=== PATIENT | male | born 1935 ===

== ENCOUNTER 2016-09-13 18:25 | Inpatient (IN) ==
[2016-09-13] MEDS ORDERED: ALBUTEROL/IPRATROPIUM 3 ML NEB RESP TX STA ×2 (18:34→20:00)
[2016-09-13] MEDS ORDERED: ONDANSETRON 4 MG/2 ML VIAL IV STA (18:34)
[2016-09-13] MEDS ORDERED: SODIUM CHLORIDE 0.9% 1,000 ML IV STA (18:34)
[2016-09-13] MEDS ORDERED: methylPREDNISolone SOD SUC 125 MG/2 ML VIAL IV STA (18:34)
[2016-09-13] MEDS ORDERED: AZITHROMYCIN INJ 500 MG in SODIUM CHLORIDE 0.9% 250 ML IV STA (18:34)
[2016-09-13] MEDS ORDERED: cefTRIAXone 1,000 MG in SODIUM CHLORIDE 0.9% 100 ML IV STA (18:34)
--- NOTE | 2016-09-13 18:39 | Emergency Department Note ---
Arrival - Arrival Chief Complaint: Shortness of Breath ED Nursing Triage Note: pt was dx with pneumonia this am at [facility]. +cough and fever Mode of Arrival: Stretcher Limitations: No Limitations Source: Patient Time Seen by Provider: 09/13/16 18:34 - History of Present Illness HPI Narrative: This 81-year-old male presents with a history of 1 week of progressive cough productive discolored sputum associated with initially low- grade temperatures all of which escalated today with a temperature of 102 earlier today at [facility]. Since transfer he has had onset of rigors and increased shortness of breath. With this he denies chest pain, nausea, vomiting, or hemoptysis. As expected he does feel short of breath with persistence of his productive cough and diffuse body aches. Currently he appears in moderate distress. Onset (ago): week(s) (Patient presents 1 week post onset of symptom) Allergies/Adverse Reactions: Allergies Allergy/AdvReac Type Severity Reaction Status Date / Time No Known Allergies Allergy Unverified 09/13/16 18:30 Home Medications: Home Medications Medication Instructions Recorded Confirmed Type Acetaminophen Tab [Tylenol Tab] 500 mg PO Q6HR PRN 09/13/16 09/13/16 History Allopurinol 200 mg PO DAILY 09/13/16 09/13/16 History Colchicine 0.6 mg PO DAILY 09/13/16 09/13/16 History Furosemide Tab [Lasix Tab] 40 mg PO QAM 09/13/16 09/13/16 History Guaifenesin/Dextromethorphan 5 ml PO Q4H PRN 09/13/16 09/13/16 History [Guaifenesin Dm Syrup] Omeprazole 20 mg PO DAILY 09/13/16 09/13/16 History Potassium Chloride 10 meq PO DAILY 09/13/16 09/13/16 History Simvastatin 40 mg PO BEDTIME 09/13/16 09/13/16 History Tamsulosin [Flomax] 0.4 mg PO DAILY 09/13/16 09/13/16 History levoFLOXacin [Levofloxacin Tab] 750 mg PO DAILY 09/13/16 09/13/16 History predniSONE TAB [PredniSONE] 10 mg PO DAILY 09/13/16 09/13/16 History Review of System - Review of System 12 point system: reviewed and no additional remarkable complaints except as stated - Review of System Constitutional: Present: as per HPI Respiratory: Present: as per HPI Cardiovascular: Present: as per HPI Gastrointestinal: Present: as per HPI Musculoskeletal: Present: as per HPI Medical,Surgical,& Family Hx - Medical History Cardio: History of: Hypertension - Social History Smoking Status: Never smoker Frequency of Alcohol Use: None Type of Drug Use: None Exam Physical Examination: GENERAL: Well developed, well nourished elderly male and active rigors. HEENT: Normocephalic. No trauma. Moist mucous membranes. EOMI. PERRLA. ENT NML NECK: Supple. No adenopathy. CARDIAC: Regular. No murmurs. Heart rate 130 CHEST: Diffuse expiratory rhonchi. Mild respiratory distress. O2 sat 89% ABDOMEN: Soft. Nontender. Active bowel sounds. EXTREMITIES: No trauma. Normal ROM. No pedal edema. SKIN: No diaphoresis. No rash. NEURO: Alert. Neuro intact no focal deficits. Vital Signs: Vital Signs Temperature 101.0 F H 09/13/16 18:25 Pulse Rate 138 H 09/13/16 18:51 Respiratory Rate 23 09/13/16 18:51 Blood Pressure 141/81 09/13/16 18:25 O2 Sat by Pulse Oximetry 97 09/13/16 18:51 Course - Reevaluation(s) Reevaluation #1: Discussed with patient the need for hospitalization - Consultations Consultation #1: Discussed with the hospitalist service who will admit for further evaluation Results - Labs CBC & BMP: 09/13/16 18:52 09/13/16 18:52 Lab Results: I have reviewed the patients labs Labs: I reviewed the lab and noted the borderline elevation in white blood count as well as the positive troponin. - Impressions EKG: Sinus tachycardia at [address] interval and left bundle branch block. Also notable is left ventricular hypertrophy with significant strain pattern. No acute injury pattern was noted. - Diagnostic Findings Procedure: Chest x-ray: image reviewed by me, report reviewed by me (Bilateral infiltrates versus edema and hent of possible underlying neoplasm) Disposition Clinical Impression: Bilateral pneumonia, Congestive heart failure Case discussed with: patient Condition: Guarded Time of Disposition: 20:04
[2016-09-13] MEDS ORDERED: ONDANSETRON 4 MG/2 ML VIAL ONE (18:46)
[2016-09-13] MEDS ORDERED: methylPREDNISolone SOD SUC 125 MG/2 ML VIAL ONE (18:46)
[2016-09-13 19:01] LABS: Basophils % 0.1 % (0.0-0.8); Eosinophils # 0.1 10*3/uL (0.0-0.87); Eosinophils % 0.9 % (0.00-10.9); Hematocrit 37.2 VOL% (42.0-52.0); Hemoglobin 11.5 GM/DL (14.0-18.0); Immature Granulocytes % 0.6 %; Immature Granulocytes Absolute 0.07 #; Lymphocytes # 2.2 10*3/uL (1.4-4.0); Lymphocytes % 19.4 % (21.2-54.2); Mean Corpuscular HGB Conc 30.9 GM/DL (32-36); Mean Corpuscular Hemoglobin 30 PG (27-34); Mean Corpuscular Volume 96.1 FL (87-102); Monocytes # 0.3 10*3/uL (0.11-0.8); Monocytes % 2.3 % (1.7-12.7); Neutrophils # 8.8 10*3/uL (1.4-7.4); Neutrophils % 76.7 % (38.7-73.9); Platelet Count 164 T/CUMM (130-400); Red Blood Count 3.87 MC/CUMM (3.8-5.5); Red Cell Distribution Width 17.4 % (9.3-17.3); White Blood Count 11.5 T/CUMM (4-12)
[2016-09-13 19:15] LABS: INR 1.1; Partial Thromboplastin Time 30.5 SECS (0-40)
[2016-09-13 19:20] LABS: Alanine Aminotransferase 34 U/L (16-61); Albumin 3.1 G/DL (3.4-5.0); Alkaline Phosphatase 116 U/L (45-117); Aspartate Amino Transferase 34 U/L (0-37); Blood Urea Nitrogen 50 MG/DL (7-18); Calcium 8.2 MG/DL (8.5-10.1); Glucose 102 MG/DL (74-106); Osmolality,Calculated 298.8 MOS/KG (273-304); Potassium 4.5 MMOL/L (3.5-5.1); Sodium 144 MMOL/L (136-145); Total Protein 6.7 G/DL (6.4-8.3)
[2016-09-13] MEDS ORDERED: AZITHROMYCIN 500 MG VIAL IV ONE (19:28)
[2016-09-13] MEDS ORDERED: cefTRIAXone 1,000 MG VIAL ONE (19:28)
--- NOTE | 2016-09-13 19:45 | XRay Report ---
Chest, 2 views History short of breath Comparison 05/31/2014 The heart is enlarged. Patient is rotated There has been development of moderate bilateral reticular nodular and patchy pulmonary opacities with some mildly more confluent somewhat nodular opacities in the lateral lung bases bilaterally measuring up to 3 cm. Impression: Interval development of bilateral pulmonary opacities which could be any combination of infiltrate or edema. Follow-up until clear is necessary for some more confluent somewhat rounded areas to exclude more focal pneumonia or underlying neoplasm PROCEDURE INTERPRETED AT [facility] DEPARTMENT OF RADIOLOGY Final Report Signed by: Dr. Carmen Olivo
[2016-09-13] MEDS ORDERED: FUROSEMIDE 40 MG/4 ML VIAL IV STA (20:00)
[2016-09-13] MEDS ORDERED: ACETAMINOPHEN 325 MG TABLET PO PRN (20:04)
[2016-09-13] MEDS ORDERED: ZALEPLON 5 MG CAPSULE PO PRN (20:04)
[2016-09-13] MEDS ORDERED: ONDANSETRON 4 MG/2 ML VIAL IV PRN (20:04)
[2016-09-13] MEDS ORDERED: ENOXAPARIN 40 MG/0.4 ML SYRINGE SUBCUT SCH (20:30)
[2016-09-13] MEDS ORDERED: EPINEPHrine 1 MG/ML VIAL ONE ×2 (20:31→20:48)
[2016-09-13] MEDS ORDERED: EPINEPHrine 1 MG/10 ML SYRINGE ONE ×2 (20:31→20:47)
[2016-09-13] MEDS ORDERED: ATROPINE 1 MG/10 ML SYRINGE ONE (20:31)
[2016-09-13] MEDS ORDERED: SODIUM BICARBONATE 50 MEQ/50 ML SYRINGE IV ONE (20:31)
[2016-09-13] MEDS ORDERED: CALCIUM CHLORIDE 1,000 MG/10 ML SYRINGE IV ONE (20:31)
--- NOTE | 2016-09-13 21:07 | XRay Report ---
History is intubation Single portable film taken markedly limited by overlying artifacts. ET tube has been placed with tip at T4-T5. The remainder of the exam is grossly unchanged with continued diffuse bilateral pulmonary opacities PROCEDURE INTERPRETED AT [facility] DEPARTMENT OF RADIOLOGY Final Report Signed by: Dr. Carmen Olivo
--- NOTE | 2016-09-13 21:37 | Hospitalist History & Physical ---
Assessment and Plan (1) Pneumonia Status: Acute Current Visit: Yes (2) History of cardiomyopathy Status: Acute Current Visit: Yes (3) Increase in troponins Status: Acute Assessment and plan: Our plan for this patient will be admitting him to ICU. Patient has a pneumonia will consult pulmonary for their evaluation of the pneumonia, possible lung mass and ventilator management. I am putting the patient on Zosyn at this time. I do feel that the code was predicated by him pulling his nonrebreather off. Patient is currently stabilized in the ER and being transferred to the unit. Ordered ABG and will adjust the ventilator as needed. Patient did have a bump in his troponins. Will consult cardiology for their evaluation. Of note will be elevated status post code. He was coded for over 15 minutes with chest compressions. Patient's family was informed that the patient is critical and might not survive the hospitalization. Current Visit: Yes History of Present Illness Chief complaint: Status post code History of present illness: Mr. Gale is a 81 year old male with past medical history significant for hypertension, cardiomyopathy, arthritis, anemia and gout who presents to our hospital not feeling well for the past week. History was obtained from his daughter. She reports that this morning he seemed disoriented they take him to [facility]. Patient was found to have fever cough and pneumonia. He was sent home. Patient reportedly was doing okay. Around 4:00 he said he could not catch his breath. Patient was very pale. He can set up. EMS was called and brought him to our hospital for further evaluation. Per the ER physician patient has been running a temperature of 102 today at [facility]. He had had onset of rigors and increased shortness of breath. He denied chest pain nausea vomiting or hemoptysis to the ER physician but did report that he was feeling short of breath. Apparently patient was requiring a nonrebreather to keep his O2 saturations up. He was found with his oxygen pulled off and secretions around his lips with possible aspiration. There was no pulse ACLS was begun immediately in the emergency room. Patient did receive multiple medications during the code. And blood pressure and pulse were restored. Patient will be kept on a epi drip for now. Patient has stabilized for now. I informed his family what it occurred in the possibility that he might not survive this hospitalization. Home Medications Medication Instructions Recorded Confirmed Type Acetaminophen Tab [Tylenol Tab] 500 mg PO Q6HR PRN 09/13/16 09/13/16 History Allopurinol 200 mg PO DAILY 09/13/16 09/13/16 History Colchicine 0.6 mg PO DAILY 09/13/16 09/13/16 History Furosemide Tab [Lasix Tab] 40 mg PO QAM 09/13/16 09/13/16 History Guaifenesin/Dextromethorphan 5 ml PO Q4H PRN 09/13/16 09/13/16 History [Guaifenesin Dm Syrup] Omeprazole 20 mg PO DAILY 09/13/16 09/13/16 History Potassium Chloride 10 meq PO DAILY 09/13/16 09/13/16 History Simvastatin 40 mg PO BEDTIME 09/13/16 09/13/16 History Tamsulosin [Flomax] 0.4 mg PO DAILY 09/13/16 09/13/16 History levoFLOXacin [Levofloxacin Tab] 750 mg PO DAILY 09/13/16 09/13/16 History predniSONE TAB [PredniSONE] 10 mg PO DAILY 09/13/16 09/13/16 History Allergies Allergy/AdvReac Type Severity Reaction Status Date / Time No Known Allergies Allergy Unverified 09/13/16 18:30 Medical,Surgical,& Family Hx - Medical History Cardio: History of: CHF, CAD, Hypertension - Surgical History Additional Surgical History: none - Family History Family History: Reports;: Family Cancer, Family Diabetes, Family Heart Disease, Family Hematology, Family Hypertension, Family Stroke - Social History Smoking Status: Never smoker Frequency of Alcohol Use: None Type of Drug Use: None Exam - Constitutional Vitals: Period Temp Pulse Resp BP Sys/Call Pulse Ox Last 24 Hr 101.0 F-101.0 F 136-145 15-35 141-141/81-81 89-97 Results - Labs CBC & BMP: 09/13/16 18:52 09/13/16 18:52
[2016-09-13 21:40] LABS: ABG Base Excess -7.4 MMOL/L (-2.5-2.5); ABG HCO3 18.8 MMOL/L (20-26); ABG Oxygen Saturation 98.6 % (95-100); ABG PCO2 40.8 MM HG (35-48); ABG PH 7.281 (7.35-7.45); ABG PO2 244.5 MM HG (80-95); Allen Test Positive; Pt O2 Delivery Device Ventilator
[2016-09-13] MEDS ORDERED: SIMVASTATIN 40 MG TABLET PO SCH (22:29)
[2016-09-13] MEDS: SODIUM CHLORIDE 0.45% 1,000 ML IV SCH (22:51)
[2016-09-13] MEDS ORDERED: ENOXAPARIN 60 MG/0.6 ML SYRINGE SUBCUT SCH (23:00)
[2016-09-13] MEDS: PROPOFOL 1,000 MG/100 ML BOTTLE IV SCH (23:55)
[2016-09-13] MEDS: PIPERACILLIN/TAZOBACTAM 3,375 MG in SODIUM CHLORIDE 0.9% 100 ML IV SCH (23:56)
[2016-09-14] MEDS: PANTOPRAZOLE 40 MG VIAL IV SCH ×2 (00:05→21:39)
[2016-09-14] MEDS: PHENYLEPHRINE DRIP 40 MG/250 ML PREMIX IV SCH ×2 (00:06→10:59)
[2016-09-14] MEDS: methylPREDNISolone SOD SUC 125 MG/2 ML VIAL IV SCH ×3 (01:38→19:09)
[2016-09-14] MEDS: PROPOFOL 1,000 MG/100 ML BOTTLE IV SCH ×3 (01:38→23:50)
[2016-09-14 02:06] LABS: CKMB % 2.5 %
[2016-09-14 02:08] LABS: Troponin I Only 15.2 NG/ML (0.00-0.045)
--- NOTE | 2016-09-14 02:28 | Event Note ---
Patient had a long code was approximately 15 minutes. Currently he is not responsive. His troponin did increase. It was a significant increase with troponin going to 15.2 CK-MB going to 73.9 with creatinine kinase going to 2921. I have him on a 1 gaurav per kg Lovenox dose. Will repeat his EKG now. At this time will not consult cardiology until 7 AM. Old cath report was reviewed. In the past they have treated him only with medical therapy.
[2016-09-14 03:45] LABS: ABG Base Excess -4.3 MMOL/L (-2.5-2.5); ABG HCO3 20.9 MMOL/L (20-26); ABG Oxygen Saturation 98.5 % (95-100); ABG PCO2 27.7 MM HG (35-48); ABG PH 7.439 (7.35-7.45); Allen Test Positive; Pt O2 Delivery Device Ventilator
[2016-09-14 05:11] LABS: Basophils % 0.1 % (0.0-0.8); Hematocrit 31.5 VOL% (42.0-52.0); Immature Granulocytes % 0.4 %; Immature Granulocytes Absolute 0.04 #; Lymphocytes # 0.2 10*3/uL (1.4-4.0); Lymphocytes % 1.7 % (21.2-54.2); Mean Corpuscular HGB Conc 31.7 GM/DL (32-36); Mean Corpuscular Hemoglobin 29 PG (27-34); Mean Corpuscular Volume 92.6 FL (87-102); Mean Platelet Volume 11.4 FL (9.6-12.0); Monocytes # 0.2 10*3/uL (0.11-0.8); Neutrophils # 8.7 10*3/uL (1.4-7.4); Neutrophils % 95.8 % (38.7-73.9); Platelet Count 111 T/CUMM (130-400); Red Cell Distribution Width 17.7 % (9.3-17.3); White Blood Count 9.1 T/CUMM (4-12)
[2016-09-14 05:41] LABS: Band Neutrophils 13 % (0-10); Elliptocytes Few; Hypochromasia 1+; Platelet Estimate Decreased; Segmented Neutrophils 84 % (50-85); Total Cells Counted 100
[2016-09-14 05:50] LABS: Calcium 7.9 MG/DL (8.5-10.1); Osmolality,Calculated 316.1 MOS/KG (273-304); Potassium 4.4 MMOL/L (3.5-5.1)
--- NOTE | 2016-09-14 06:28 | EKG Report ---
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
--- NOTE | 2016-09-14 06:32 | EKG Report ---
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
[2016-09-14] MEDS: PIPERACILLIN/TAZOBACTAM 3,375 MG in SODIUM CHLORIDE 0.9% 100 ML IV SCH ×2 (07:13→16:54)
--- NOTE | 2016-09-14 07:32 | XRay Report ---
XR chest 1V portable Indication: Intubated patient Comparison: Chest x-ray dated September 13, 2016 Technique: Single frontal view of the chest. Findings: Tip of endotracheal tube 1-2 cm above the albina. Continued cardiomegaly. Interval increased dense consolidation within the right lung base. Continued bilateral interstitial prominence with scattered small opacities. Visualized osseous and surrounding soft tissue structures appear grossly unchanged. IMPRESSION: As above. PROCEDURE INTERPRETED AT [facility] DEPARTMENT OF RADIOLOGY Final Report Signed by: Dr Keyon Navarro
--- NOTE | 2016-09-14 08:17 | Pulmonology Consult Note ---
Assessment and Plan (1) Respiratory failure Status: Acute Assessment and plan: ABGs look good. Will reduce FiO2 and assist control rate a little. Current Visit: Yes (2) Cardiopulmonary arrest Status: Acute Assessment and plan: Remains to be seen what his mental status will be like. Continuing support. History of cardiomyopathy and cardiac enzymes apparently myocardial infarction. Current Visit: Yes (3) Pneumonia Status: Acute Assessment and plan: Agree with broad-spectrum antibiotics. Current Visit: Yes (4) History of cardiomyopathy Status: Acute Assessment and plan: Need an echo to see current LV function. Current Visit: Yes (5) Increase in troponins Status: Acute Assessment and plan: Suggests a myocardial infarction. Patient did have a cardiac arrest with CPR. Current Visit: Yes History of Present Illness Chief complaint: Post cardiopulmonary arrest History of present illness: Mr. Gale is a 81 year old male apparently had been ill for about a week. He was taken to the [facility] yesterday morning and was found to have fever of 102 and felt to have pneumonia. He was transferred here. He subsequently had a cardiopulmonary arrest and is on the ventilator. He has a history of coronary artery disease with a cardiomyopathy. I do not have the details of that. Apparently he has a history of gout as well looking at his home medications. Also hyperlipidemia. Also benign prostatic hypertrophy. He was on Levaquin and prednisone prior to admission. He reportedly has never been a smoker. No known history of chronic lung disease. After the cardiac arrest his CPKmb and troponins have markedly elevated. Home Medications Medication Instructions Recorded Confirmed Type Acetaminophen Tab [Tylenol Tab] 500 mg PO Q6HR PRN 09/13/16 09/13/16 History Allopurinol 200 mg PO DAILY 09/13/16 09/13/16 History Colchicine 0.6 mg PO DAILY 09/13/16 09/13/16 History Furosemide Tab [Lasix Tab] 40 mg PO QAM 09/13/16 09/13/16 History Guaifenesin/Dextromethorphan 5 ml PO Q4H PRN 09/13/16 09/13/16 History [Guaifenesin Dm Syrup] Omeprazole 20 mg PO DAILY 09/13/16 09/13/16 History Potassium Chloride 10 meq PO DAILY 09/13/16 09/13/16 History Simvastatin 40 mg PO BEDTIME 09/13/16 09/13/16 History Tamsulosin [Flomax] 0.4 mg PO DAILY 09/13/16 09/13/16 History levoFLOXacin [Levofloxacin Tab] 750 mg PO DAILY 09/13/16 09/13/16 History predniSONE TAB [PredniSONE] 10 mg PO DAILY 09/13/16 09/13/16 History Allergies Allergy/AdvReac Type Severity Reaction Status Date / Time No Known Allergies Allergy Unverified 09/13/16 18:30 ROS unobtainable: due to endotracheal tube, due to mental status Exam (Pulmonay) H&P - Constitutional Vitals: Period Temp Pulse Resp BP Sys/Call Pulse Ox Last 24 Hr 97.0 F-101.0 F 92-145 14-35 97-141/48-81 89-100 Exam: Blood pressure is 120/50 on pressors. He is afebrile. Pupils are small and sluggish. Orotracheal tube in place. Neck supple. Chest reveals some rales in both bases. Equal breath sounds. Heart rate is around 100 and regular. No murmurs. Abdomen soft no masses. Bowel sounds present. Extremities no clubbing cyanosis or edema. Medical,Surgical,& Family Hx - Medical History Cardio: History of: CHF, CAD, Hypertension HEENT: History of: Dental Problems (dentures) Rheumatology: History of;: Gout, Rheumatoid Arthritis Musculoskeletal: No history of: Amputation Hematology: History of: Anemia - Surgical History Cardiac Surgeries: Sugical HX of: Cardiac Catheterization - Family History Family History: Reports;: Family Cancer, Family Diabetes, Family Heart Disease, Family Hematology, Family Hypertension, Family Stroke - Social History Smoking Status: Never smoker Frequency of Alcohol Use: None Type of Drug Use: None Results - Labs CBC & BMP: 09/14/16 04:51 09/14/16 04:51 Lab Results: I have reviewed the past 24 hour labs - Diagnostic Findings Procedure: Chest x-ray: image reviewed by me (Pulmonary infiltrates bilaterally. ET tube in good position.)
--- NOTE | 2016-09-14 08:30 | Cardiology Consult Note ---
Assessment and Plan - Time spent with patient Time spent with patient: Greater than 30 minutes History of Present Illness - Data of Consult Patient: known to practice within the last 3 years Consult date: 09/14/16 Requesting Physician: Eusebio Telles - Consult Narrative Reason for consult: cardiopulmonary arrest, elevated troponin History of present illness: MEDICAL SUPPORT ASSISTANT: DR. KHALIF QUICK (Late entry). Patient is being seen in the ICU. There is no family at the bedside, the patient is intubated. The majority of this information is taken from medical staff and medical records. Mr. Gale, 81ChM, has previously been followed by Dr. Quick. He was last seen in cardiology clinic September 24, 2014. Risk factors include: Advanced age, known (moderate) coronary artery disease, hypertension, dyslipidemia, PVD, sedentary lifestyle. Last cardiac catheterization June 25, 2014 - see below for complete report. Patient presented to [facility] Emergency Department the evening of September 13, 2016. He was found to have a fever, cough and pneumonia. He had recently been treated at [facility] for pneumonia (fever 102F ). His condition deteriorated at home and he was brought to our facility. He was requiring a nonrebreather to keep his oxygen saturation up. He continued to pull his mask off with secretions around his lips and possible aspiration noted. A code was called, there was no pulse, ACLS was begun immediately while in the emergency department. He was coded with chest compressions for over 15 minutes. He received multiple medications during the code and blood pressure and pulse were restored. He was transferred to CCU where he remains intubated. Sedation has been withheld this morning intermittently and minimal neurological response is noted. It is felt that his respiratory arrest was due to hypoxemia and pneumonia. He is currently being treated for both. Troponin initially 1.19, after CPR has now increased to 36.4. He is being treated with aspirin, Lovenox. Blood pressure will not allow for introduction of a beta- yamel or an CEDRIC inhibitor as he is requiring pressors at this time. Lipid- lowering agent will be initiated this evening. His platelet count has decreased to 111 and will continue to monitor this closely. Patient is critically ill. Echocardiogram has been ordered. CT head also ordered. Should the patient condition and multiple comorbidities improve, he will need cardiac catheterization. I will further discuss with Dr. Sargent and await his recommendations. ASSESSMENT/PLAN: 1. CARDIOPULMONARY ARREST - critically ill. Continue ventilatory support, support with pressors. 2. CAD, MODERATE - history of moderate CAD. See report below regarding most recent results of heart catheterization 3. ELEVATED CARDIAC BIOMARKERS S/P CODE - continue current plan of care. Due to the patient's multiple comorbidities, medical management will ensue until he stabilizes. At that time, he will need further imaging investigation including cardiac catheterization. 4. PNEUMONIA - currently being treated with steroids, antibiotics and pulmonary toilet. 5. THROMBOCYTOPENIA - we will continue to follow his platelets closely. 6. ALTERED MENTAL STATUS - possibly anoxic brain injury. Awaiting CT of head. Heart catheterization, performed by Dr. Khalif Quick, June 25, 2014: 1. Moderate CAD A. Right coronary artery with sequential 60%, 70% and 50% lesions 2. Right dominant coronary arteries 3. Ejection fraction 40% to 45%, although this was difficult to assess due to poor visualization of the left ventricle. 4. Mild to moderate aortic stenosis with a peak gradient of 35 mmHg, mean gradient of 16 mmHg. 5. Tortuous and calcified right iliac artery with mild to moderate atherosclerotic vascular disease no evidence of vascular complication. CC: Eve Villatoro MD - Home Medications and Allergies Home Medications: Home Medications Medication Instructions Recorded Confirmed Type Acetaminophen Tab [Tylenol Tab] 500 mg PO Q6HR PRN 09/13/16 09/13/16 History Allopurinol 200 mg PO DAILY 09/13/16 09/13/16 History Colchicine 0.6 mg PO DAILY 09/13/16 09/13/16 History Furosemide Tab [Lasix Tab] 40 mg PO QAM 09/13/16 09/13/16 History Guaifenesin/Dextromethorphan 5 ml PO Q4H PRN 09/13/16 09/13/16 History [Guaifenesin Dm Syrup] Omeprazole 20 mg PO DAILY 09/13/16 09/13/16 History Potassium Chloride 10 meq PO DAILY 09/13/16 09/13/16 History Simvastatin 40 mg PO BEDTIME 09/13/16 09/13/16 History Tamsulosin [Flomax] 0.4 mg PO DAILY 09/13/16 09/13/16 History levoFLOXacin [Levofloxacin Tab] 750 mg PO DAILY 09/13/16 09/13/16 History predniSONE TAB [PredniSONE] 10 mg PO DAILY 09/13/16 09/13/16 History Allergies/Adverse Reactions: Allergies Allergy/AdvReac Type Severity Reaction Status Date / Time No Known Allergies Allergy Unverified 09/13/16 18:30 ROS unobtainable: due to endotracheal tube Medical,Surgical,& Family Hx - Medical History Cardio: History of: CHF, CAD, Hypertension HEENT: History of: Dental Problems (dentures) Rheumatology: History of;: Gout, Rheumatoid Arthritis Musculoskeletal: No history of: Amputation Hematology: History of: Anemia - Surgical History Cardiac Surgeries: Sugical HX of: Cardiac Catheterization - Family History Family History: Reports;: Family Cancer, Family Diabetes, Family Heart Disease, Family Hematology, Family Hypertension, Family Stroke - Social History Smoking Status: Never smoker Frequency of Alcohol Use: None Type of Drug Use: None Physical Examination Vital Signs Temp Pulse Resp BP Pulse Ox 101.0 F H 136 H 28 H 141/81 89 L 09/13/16 18:25 09/13/16 18:25 09/13/16 18:25 09/13/16 18:25 09/13/16 18:25 General: [Appears critically ill. ] [Remains intubated. ] [Appears comfortable. ] HEENT: [Normocephalic, atraumatic. Mucous membranes moist. No jaundice noted. Conjunctiva moist and clear, sclerae anicteric] Neck: No obvious JVD/HJR, no thyromegaly or lymphadenopathy noted. No carotid bruit appreciated Cardiac: [Regular rate and rhythm.] [No obvious murmur rub or gallop.] Lungs: [Rhonchi noted throughout. Symmetrical chest wall movements noted. Remains intubated. Abdomen: Soft, bowel sounds normoactive. Nontender and nondistended. No abdominal bruit or thrill noted. No masses noted. Musculoskeletal: No fluid collection. Decreased range of motion is noted. Extremities: No clubbing, cyanosis noted. [ No edema noted.] Upper extremity pulses 2+. Lower extremity pulses 1+. Capillary refill less than 3 seconds. Skin: No unusual lesions or rashes. No skin breakdown appreciated. Neuro: Not following commands at this time. No essential tremors appreciated. Result/EKG - Labs CBC & BMP: 09/14/16 04:51 09/14/16 04:51 Lab Results: I have reviewed the past 24 hour labs Labs: Laboratory Results - last 24 hr 09/13/16 09/13/16 09/13/16 18:52 18:52 18:52 WBC 11.5 RBC 3.87 Hgb 11.5 L Hct 37.2 L MCV 96.1 MCH 30 MCHC 30.9 L RDW 17.4 H Plt Count 164 MPV 10.0 Neut % (Auto) 76.7 H Lymph % (Auto) 19.4 L Owen % (Auto) 2.3 Eos % (Auto) 0.9 Baso % (Auto) 0.1 Neut # (Auto) 8.8 H Lymph # (Auto) 2.2 Owen # (Auto) 0.3 Eos # (Auto) 0.1 Baso # (Auto) 0.0 Total Counted Immature Gran % 0.6 Nucleated RBC % 0.0 Immature Gran # 0.07 Segmented Neutrophils Band Neutrophils Monocytes Nucleated RBCs # 0.00 Platelet Estimate Hypochromasia Elliptocytes Morphology Comment INR 1.1 PT Patient/Control Mix 12.0 Circ Anticoag PTT 30.5 ABG pH ABG pCO2 ABG pO2 ABG HCO3 ABG Total CO2 ABG O2 Saturation ABG Base Excess FiO2 Sodium 144 Potassium 4.5 Chloride 107 Carbon Dioxide 24 Anion Gap 17.5 H BUN 50 H Creatinine 1.80 H GFR Calculation 32 BUN/Creatinine Ratio 27.00 H Glucose 102 Calculated Osmolality 298.8 Calcium 8.2 L Total Bilirubin 0.70 AST 34 ALT 34 Alkaline Phosphatase 116 Total Creatine Kinase 117 CK-MB (CK-2) 4.0 H CK and CKMB Interp Troponin I 1.190 H B-Natriuretic Peptide Total Protein 6.7 Albumin 3.1 L Globulin 3.6 H Albumin/Globulin Ratio 0.8 L 09/13/16 09/13/16 09/14/16 18:52 21:21 01:02 WBC RBC Hgb Hct MCV MCH MCHC RDW Plt Count MPV Neut % (Auto) Lymph % (Auto) Owen % (Auto) Eos % (Auto) Baso % (Auto) Neut # (Auto) Lymph # (Auto) Owen # (Auto) Eos # (Auto) Baso # (Auto) Total Counted Immature Gran % Nucleated RBC % Immature Gran # Segmented Neutrophils Band Neutrophils Monocytes Nucleated RBCs # Platelet Estimate Hypochromasia Elliptocytes Morphology Comment INR PT Patient/Control Mix Circ Anticoag PTT ABG pH 7.281 L ABG pCO2 40.8 ABG pO2 244.5 H ABG HCO3 18.8 L ABG Total CO2 20.0 L ABG O2 Saturation 98.6 ABG Base Excess -7.4 L FiO2 100.00 Sodium Potassium Chloride Carbon Dioxide Anion Gap BUN Creatinine GFR Calculation BUN/Creatinine Ratio Glucose Calculated Osmolality Calcium Total Bilirubin AST ALT Alkaline Phosphatase Total Creatine Kinase 2921 H D CK-MB (CK-2) 73.9 H D CK and CKMB Interp 2.5 Troponin I 15.200 H D B-Natriuretic Peptide 992 H Total Protein Albumin Globulin Albumin/Globulin Ratio 09/14/16 09/14/16 09/14/16 03:30 04:51 04:51 WBC 9.1 RBC 3.40 L Hgb 10.0 L Hct 31.5 L MCV 92.6 MCH 29 MCHC 31.7 L RDW 17.7 H Plt Count 111 L D MPV 11.4 Neut % (Auto) 95.8 H Lymph % (Auto) 1.7 L Owen % (Auto) 2.0 Eos % (Auto) 0.0 Baso % (Auto) 0.1 Neut # (Auto) 8.7 H Lymph # (Auto) 0.2 L Owen # (Auto) 0.2 Eos # (Auto) 0.0 Baso # (Auto) 0.0 Total Counted 100 Immature Gran % 0.4 Nucleated RBC % 0.0 Immature Gran # 0.04 Segmented Neutrophils 84 Band Neutrophils 13 H Monocytes 3 Nucleated RBCs # 0.00 Platelet Estimate Decreased Hypochromasia 1+ Elliptocytes Few Morphology Comment INR PT Patient/Control Mix Circ Anticoag PTT ABG pH 7.439 ABG pCO2 27.7 L ABG pO2 123.0 H ABG HCO3 20.9 ABG Total CO2 17.0 L ABG O2 Saturation 98.5 ABG Base Excess -4.3 L FiO2 50.00 Sodium Potassium Chloride Carbon Dioxide Anion Gap BUN Creatinine GFR Calculation BUN/Creatinine Ratio Glucose Calculated Osmolality Calcium Total Bilirubin AST ALT Alkaline Phosphatase Total Creatine Kinase > 7000 H D CK-MB (CK-2) 116.4 H D CK and CKMB Interp 0.0 Troponin I 36.400 H D B-Natriuretic Peptide Total Protein Albumin Globulin Albumin/Globulin Ratio 09/14/16 04:51 WBC RBC Hgb Hct MCV MCH MCHC RDW Plt Count MPV Neut % (Auto) Lymph % (Auto) Owen % (Auto) Eos % (Auto) Baso % (Auto) Neut # (Auto) Lymph # (Auto) Owen # (Auto) Eos # (Auto) Baso # (Auto) Total Counted Immature Gran % Nucleated RBC % Immature Gran # Segmented Neutrophils Band Neutrophils Monocytes Nucleated RBCs # Platelet Estimate Hypochromasia Elliptocytes Morphology Comment INR PT Patient/Control Mix Circ Anticoag PTT ABG pH ABG pCO2 ABG pO2 ABG HCO3 ABG Total CO2 ABG O2 Saturation ABG Base Excess FiO2 Sodium 149 H Potassium 4.4 Chloride 113 H Carbon Dioxide 19 L Anion Gap 21.4 H BUN 59 H Creatinine 2.40 H GFR Calculation 22 BUN/Creatinine Ratio 24.00 H Glucose 169 H Calculated Osmolality 316.1 H Calcium 7.9 L Total Bilirubin AST ALT Alkaline Phosphatase Total Creatine Kinase CK-MB (CK-2) CK and CKMB Interp Troponin I B-Natriuretic Peptide Total Protein Albumin Globulin Albumin/Globulin Ratio - Diagnostic Findings Procedure: Chest x-ray: report reviewed by me - EKG EKG results: interpreted by me EKG shows: sinus rhythm
[2016-09-14] MEDS ORDERED: FUROSEMIDE 40 MG TABLET PO SCH (09:00)
[2016-09-14] MEDS ORDERED: ENOXAPARIN 60 MG/0.6 ML SYRINGE SUBCUT SCH (09:00)
[2016-09-14] MEDS ORDERED: predniSONE 10 MG TABLET PO SCH (09:00)
[2016-09-14] MEDS ORDERED: POTASSIUM CHLORIDE 10 MEQ TABLET PO SCH (09:00)
[2016-09-14] MEDS ORDERED: COLCHICINE 0.6 MG TABLET PO SCH (09:00)
[2016-09-14] MEDS ORDERED: TAMSULOSIN 0.4 MG CAPSULE PO SCH (09:00)
[2016-09-14] MEDS: ALLOPURINOL 100 MG TABLET PO SCH (09:16)
[2016-09-14] MEDS: SODIUM CHLORIDE 0.45% 1,000 ML IV SCH (12:34)
--- NOTE | 2016-09-14 13:37 | Hospitalist Progress Note ---
Hospitalist: Subjective Interval history: Pt intubated and sedated on vent but once sedation held x 30 minutes, nurse reports minimal response. No fever. BP low in 90's systolically but over the last 3 hours has had decreased UOP. Neonephrine restarted. Pt was also bradycardic Exam - Constitutional Vitals: Period Temp Pulse Resp BP Sys/Call Pulse Ox Last 24 Hr 97.0 F-101.0 F 54-145 12-42 75-166/39-81 89-100 Exam: GEN: Intubated and sedated, ill appearing HEENT: Pupils sluggish but reactive, clear sclera, ETT in place NECK: trachea midline, No LAD or thyromegaly appreciated CV: RRR no M diminished heart tones LUNGS: diminished lung sounds, clear, nonlabored but does breath over the vent ABD: soft, hypoactive, distended, no HSM or masses appreciated though difficult to assess given body habitus EXT: Warm no C/C/E Neuro: does not moves extremities to tactile stimulation Results - Labs CBC & BMP: 09/14/16 04:51 09/14/16 04:51 - Impressions (1) Acute hypoxic respiratory failure likely due aspiration pneumonia Status: Acute Assessment and plan: - Vent management per pulmonology - Cont IV antibiotics, bronchodilators, pulm toileting - F/U blood culture. Sputum culture. - Serial labs Current Visit: Yes (2) S/P Cardiopulmonary arrest with shock possibly cardiogenic vs. obstructive vs. septic Status: Acute Assessment and plan: - Requiring neosynephrine - Continuing support. History of cardiomyopathy and cardiac enzymes suggest myocardial infarction. - F/U ECHO Current Visit: Yes (3) History of cardiomyopathy with suspected NSTEMI Status: Acute Assessment and plan: F/U echo to see current LV function. Current Visit: Yes (5) Acute renal failure suspect due to ATN due to poor perfusion/ hypotension with metabolic acidosis Status: Acute Assessment and plan: - will stop statin as CPK is high and do not want to statin to lead to rhabdomyolysis. Will hold Flomax. Check urine Na, Cr, eosinophils and myoglobin. Check renal U/S and consult renal. - Check lactic acid - Hold colchicine - Avoid nephrotoxic agents - Vasoactive agents to improve cardiac output with goal MAP >/= 65 Current Visit: Yes (6) Bradycardia - improved with epi drip. Cards to see. currently in 60's (7) Anemia/ Thrombocytopenia - Check DIC panel, HIT Antibody, LDH and haptoglobin. Serial labs. May need to hold Lovenox... (8) Acute encephalopathy possibly due to hypotension, hypoxia and infection - consult neurology. Check CT head. ? EEG DVT prophylaxis- Lovenox SQ/ SCDs GI prophylaxis- Protonix IV 55 minutes spent with this patient. D/W nurse. I have attempted to call Nuzhat at [phone] (busy signal) and daughter Alycia [phone] (disconnected ). Will try to get another number to update. Overall prognosis is guarded.
[2016-09-14 14:42] LABS: INR 1.4; PT Patient Result 15.6 SECS
[2016-09-14 14:51] LABS: D-Dimer >= 35.2 MG/L FEU; Fibrinogen Quant Value 447 MG% (200-400)
[2016-09-14 14:57] LABS: Partial Thromboplastin Time 47.3 SECS (0-40)
--- NOTE | 2016-09-14 15:00 | Ultrasound Report ---
Referring Physician: Eve Villatoro MD Exam: US renal Bilateral Date: September 14, 2016 Reason: Elevated creatinine Comparison: None Technique: Grayscale and color flow ultrasound images of both kidneys were obtained. Ultrasound images were captured and stored. Findings: The right kidney measures 8.3 x 4.9 x 4.4 cm, and the left kidney measures 8.4 x 4.2 x 4.0 cm. No hydronephrosis is present. There is increased echogenicity of renal parenchyma bilaterally, which can be seen in chronic medical renal disease. The left kidney also has a lobular contour. This could be related to cortical scarring or congenital variation. There are 2 simple cysts at the upper pole of the left kidney: One measuring 1.2 x 1.0 x 1.0 cm and the other measuring 0.7 x 0.7 x 0.6 cm. No suspicious renal lesion is identified. Impression: 1. There is increased echogenicity of the renal parenchyma bilaterally. This can be seen in chronic medical renal disease. 2. Small left renal cysts. 3. The left kidney has a slightly lobular contour. This could be related to cortical scarring or congenital variation. PROCEDURE INTERPRETED AT [facility] DEPARTMENT OF RADIOLOGY Final Report Signed by: Dr. Natasha Garcia
[2016-09-14 15:28] LABS: Free T4 (Free Thyroxine) 0.97 NG/DL (0.76-1.46); Thyroid Stimulating Hormone 3.28 uIU/ml (0.358-3.74)
[2016-09-14 15:34] LABS: CKMB % 1.2 %
[2016-09-14 15:38] LABS: Troponin I Only 71.9 NG/ML (0.00-0.045)
[2016-09-14 16:16] LABS: Albumin 2.4 G/DL (3.4-5.0); Bilirubin,Direct 0.4 MG/DL (0.0-0.20); Bilirubin,Indirect 0.3 MG/DL (0.0-1.0); Bilirubin,Total 0.7 MG/DL (0.2-1.0); Total Protein 5.2 G/DL (6.4-8.3)
--- NOTE | 2016-09-14 16:25 | Neurology Consult Note ---
History of Present Illness History of present illness: Patient is unable to provide any history. History basically obtained from the chart. Mr. Gale is a 81 year old male with past medical history significant for hypertension, cardiomyopathy, arthritis, anemia and gout who presents to our hospital not feeling well for the past week. Family reports that yesterday morning he seemed disoriented they take him to [facility]. Patient was found to have fever cough and pneumonia. He was sent home. Patient reportedly was doing okay. Around 4:00 he said he could not catch his breath. Patient was very pale. EMS was called and brought him to [facility] for further evaluation. Per the ER physician patient has been running a temperature of 102 yesterday at [facility]. He had had onset of rigors and increased shortness of breath. There was no chest pain nausea vomiting or hemoptysis to the ER physician but did report that he was feeling short of breath. Apparently patient was requiring a nonrebreather to keep his O2 saturations up. He was found with his oxygen pulled off and secretions around his lips with possible aspiration. There was no pulse ACLS was begun immediately in the emergency room. Patient did receive multiple medications during the code. And blood pressure and pulse were restored. Patient has stabilized for now. Home Medications Medication Instructions Recorded Confirmed Type Acetaminophen Tab [Tylenol Tab] 500 mg PO Q6HR PRN 09/13/16 09/13/16 History Allopurinol 200 mg PO DAILY 09/13/16 09/13/16 History Colchicine 0.6 mg PO DAILY 09/13/16 09/13/16 History Furosemide Tab [Lasix Tab] 40 mg PO QAM 09/13/16 09/13/16 History Guaifenesin/Dextromethorphan 5 ml PO Q4H PRN 09/13/16 09/13/16 History [Guaifenesin Dm Syrup] Omeprazole 20 mg PO DAILY 09/13/16 09/13/16 History Potassium Chloride 10 meq PO DAILY 09/13/16 09/13/16 History Simvastatin 40 mg PO BEDTIME 09/13/16 09/13/16 History Tamsulosin [Flomax] 0.4 mg PO DAILY 09/13/16 09/13/16 History levoFLOXacin [Levofloxacin Tab] 750 mg PO DAILY 09/13/16 09/13/16 History predniSONE TAB [PredniSONE] 10 mg PO DAILY 09/13/16 09/13/16 History Allergies Allergy/AdvReac Type Severity Reaction Status Date / Time No Known Allergies Allergy Unverified 09/13/16 18:30 ROS unobtainable: due to endotracheal tube, due to mental status Medical,Surgical,& Family Hx - Medical History Cardio: History of: CHF, CAD, Hypertension HEENT: History of: Dental Problems (dentures) Rheumatology: History of;: Gout, Rheumatoid Arthritis Musculoskeletal: No history of: Amputation Hematology: History of: Anemia - Surgical History Cardiac Surgeries: Sugical HX of: Cardiac Catheterization - Family History Family History: Reports;: Family Cancer, Family Diabetes, Family Heart Disease, Family Hematology, Family Hypertension, Family Stroke - Social History Smoking Status: Never smoker Frequency of Alcohol Use: None Type of Drug Use: None Exam - Constitutional Vitals: Period Temp Pulse Resp BP Sys/Call Pulse Ox Last 24 Hr 97.0 F-101.0 F 53-145 12-42 75-166/39-81 89-100 Exam: GENERAL: Patient is in no acute distress. NECK: Neck is supple. There is no JVD. No carotid bruits present. No thyroid masses. CVS: First and second heart sounds are normal. There is no S3 present. Regular rate and rhythm. RESPIRATORY: Lungs are clear to auscultation without any rales or rhonchi. ABDOMEN: Soft and non-tender. Bowel sounds are present. There is no hepatosplenomegaly. EXT: There is no palpable edema. Peripheral pulses are present. Skin: No rashes Central Nervous system: General: Unresponsive on vent Speech: None Comprehension: None Facial expressions: Normal Cranial Nerves: Pupils are sluggish but reactive. Doll's head eye movements are negative. No facial asymmetry seen. Motor: Bulk and Tone is normal. Strength cannot be assessed Sensory: Cannot be assessed Reflexes: 1+ and symmetrical Cerebellar function: Normal finger to nose and heel to [place] testing. Toes: Equivocal Gait: Cannot be assessed Results - Labs CBC & BMP: 09/14/16 14:13 09/14/16 04:51 Assessment and Plan (1) Hypoxic encephalopathy Status: Acute Assessment and plan: Hypoxic/anoxic encephalopathy secondary to cardiopulmonary arrest CT head without contrast EEG Prognosis is guarded. Thank you for the consult Current Visit: Yes
[2016-09-14] MEDS: ASPIRIN EC 81 MG TABLET PO SCH (16:54)
[2016-09-14] MEDS ORDERED: cefTRIAXone 1,000 MG in SODIUM CHLORIDE 0.9% 100 ML IV SCH (18:00)
[2016-09-14] MEDS ORDERED: AZITHROMYCIN INJ 500 MG in SODIUM CHLORIDE 0.9% 250 ML IV SCH (18:00)
--- NOTE | 2016-09-14 18:15 | CT Report ---
CT of the head without contrast. Indication: Altered mental status. No previous study. There is calcific plaque present within the intracranial internal carotid arteries and vertebral arteries. There is mucosal thickening within the paranasal sinuses. The mastoid air cells are clear. The calvarium is intact. There is generalized prominence of the ventricles and sulci consistent with atrophy of aging. There is no mass effect, midline shift, or area of hemorrhage. No cortical infarcts are seen. Within the basal ganglia, lacunar infarcts are seen bilaterally. There are mild changes of chronic microvascular ischemia within the periventricular white matter. Impression: Chronic ischemic change and atrophy. No acute intracranial process is seen. Mild paranasal sinus disease. The CT exam was performed using one or more of the following dose reduction techniques: Automated exposure control, adjustment of the mA and/or kV according to patient size, or use of iterative reconstruction technique. PROCEDURE INTERPRETED AT [facility] DEPARTMENT OF RADIOLOGY Final Report Signed by: Dr. Lalita Olivo
--- NOTE | 2016-09-14 18:29 | ECHO Report ---
Neftali Gale Exam Date: 09/14/2016 09:31 Referring Physician: Technologist: Karma Crawford Age: 81 Ht (in): 63 Wt (lb): 125 Gender: M Exam Location: [facility] Echo Indications: pneumonia, elevated troponin, resp failure, post cardiac arrest, hx. cardiomyopathy BP: 121 / 52 HR: 92 Rhythm: ??sinus Technical Quality: Good IMPRESSIONS Moderate concentric left ventricular hypertrophy with diastolic dysfunction. Moderately increased left ventricular cavity size. Left ventricular ejection fraction is estimated at 15 -20 %. Mildly decreased right ventricular systolic function. Mild mitral valve regurgitation. Moderate aortic valve regurgitation. [id number] tricuspid valve regurgitation. Tricuspid regurgitation velocities suggest a PAP of 25.0 mmHg + RAP. Mild pulmonary valve regurgitation. MEASUREMENTS (Male / Female) Normal Values 2D ECHO LV Diastolic Diameter PLAX 3.8 cm 4.2 - 5.9 / 3.9 - 5.3 cm LV Systolic Diameter PLAX 3.5 cm LV Fractional Shortening PLAX 8.3 % IVS Diastolic Thickness 1.7 cm 0.6 - 1.0 / 0.6 - 0.9 cm LVPW Diastolic Thickness 1.4 cm 0.6 - 1.0 / 0.6 - 0.9 cm RV Internal Dim ED PLAX 2.3 cm Aortic Root Diameter 2.6 cm LA Systolic Diameter LX 3.9 cm 3.0 - 4.0 / 2.7 - 3.8 cm DOPPLER TR Peak Velocity 250.0 cm/s TR Peak Gradient 25.0 mmHg FINDINGS Left Ventricle Moderately increased septal wall thickness. Moderate concentric left ventricular hypertrophy with diastolic dysfunction. Moderately increased left ventricular cavity size. Left ventricular ejection fraction is estimated at 15 -20 %. Right Ventricle Normal right ventricular size.mildly decreased right ventricular systolic function. Right Atrium Normal right atrial size. Left Atrium Normal left atrial size. Mitral Valve Mild mitral valve sclerosis. Mild mitral valve regurgitation. Aortic Valve Mild aortic valve sclerosis. Moderate aortic valve regurgitation. Tricuspid Valve Mild tricuspid valve sclerosis. [id number] tricuspid valve regurgitation. Tricuspid regurgitation velocities suggest a PAP of 25.0 mmHg + RAP. Pulmonic Valve Mild pulmonic valve sclerosis. Mild pulmonary valve regurgitation. Pericardium No pericardial effusion. Aorta Normal size aortic root and proximal ascending aorta. Gregorio Sargent MD (Electronically Signed) Final Date: 14 September 2016 18:28
--- NOTE | 2016-09-14 18:50 | Nephrology Consult Note ---
History of Present Illness Chief complaint: ARF History of present illness: Mr. Gale is a 81 year old male who presented with shortness of breath and presumed pneumonia. He suffered respiratory arrest in the ER. He is thought to have aspirated. He had loss of pulses well. CPR for approximately 15 minutes was required. He was intubated and transferred to the CCU. He has required pressor support. He is oliguric Home Medications Medication Instructions Recorded Confirmed Type Acetaminophen Tab [Tylenol Tab] 500 mg PO Q6HR PRN 09/13/16 09/13/16 History Allopurinol 200 mg PO DAILY 09/13/16 09/13/16 History Colchicine 0.6 mg PO DAILY 09/13/16 09/13/16 History Furosemide Tab [Lasix Tab] 40 mg PO QAM 09/13/16 09/13/16 History Guaifenesin/Dextromethorphan 5 ml PO Q4H PRN 09/13/16 09/13/16 History [Guaifenesin Dm Syrup] Omeprazole 20 mg PO DAILY 09/13/16 09/13/16 History Potassium Chloride 10 meq PO DAILY 09/13/16 09/13/16 History Simvastatin 40 mg PO BEDTIME 09/13/16 09/13/16 History Tamsulosin [Flomax] 0.4 mg PO DAILY 09/13/16 09/13/16 History levoFLOXacin [Levofloxacin Tab] 750 mg PO DAILY 09/13/16 09/13/16 History predniSONE TAB [PredniSONE] 10 mg PO DAILY 09/13/16 09/13/16 History Allergies Allergy/AdvReac Type Severity Reaction Status Date / Time No Known Allergies Allergy Unverified 09/13/16 18:30 Medical,Surgical,& Family Hx - Medical History Cardio: History of: CHF, CAD, Hypertension HEENT: History of: Dental Problems (dentures) Rheumatology: History of;: Gout, Rheumatoid Arthritis Musculoskeletal: No history of: Amputation Hematology: History of: Anemia - Surgical History Cardiac Surgeries: Sugical HX of: Cardiac Catheterization - Family History Family History: Reports;: Family Cancer, Family Diabetes, Family Heart Disease, Family Hematology, Family Hypertension, Family Stroke - Social History Smoking Status: Never smoker Frequency of Alcohol Use: None Type of Drug Use: None Review of Systems ROS unobtainable: due to endotracheal tube Exam - Vital Signs Vital signs: Period Temp Pulse Resp BP Sys/Call Pulse Ox Last 24 Hr 97.0 F-98.2 F 53-145 12-45 75-172/39-96 91-100 Exam: Gen.: Not responsive, on ventilator ENT: Pupils equal round reactive to light. Neck: Supple. No JVD or bruit. Cardiovascular: Regular rate and rhythm. No murmur rub or gallop Lungs: Coarse rhonchi on the right. Left clear Abdomen: Soft. Nontender. Positive bowel sounds. No organomegaly Extremities: No edema Results - Labs CBC & BMP: 09/14/16 14:13 09/14/16 04:51 Assessment and Plan (1) ARF (acute renal failure) Status: Acute Assessment and plan: 81-year-old man with: * Pneumonia * Cardiopulmonary arrest. Continue ventilatory support * Probable acute NE. * ARF. This is secondary to hypotension. Continue supportive care. Avoid nephrotoxins Current Visit: Yes (2) Cardiopulmonary arrest Status: Acute Current Visit: Yes (3) History of cardiomyopathy Status: Acute Current Visit: Yes (4) Hypoxic encephalopathy Status: Acute Current Visit: Yes (5) Increase in troponins Status: Acute Current Visit: Yes (6) Pneumonia Status: Acute Current Visit: Yes (7) Respiratory failure Status: Acute Current Visit: Yes
[2016-09-14] MEDS: ATORVASTATIN 20 MG TABLET PO SCH (21:39)
[2016-09-15] MEDS: PHENYLEPHRINE DRIP 40 MG/250 ML PREMIX IV SCH (00:20)
[2016-09-15] MEDS: SODIUM CHLORIDE 0.45% 1,000 ML IV SCH (00:50)
[2016-09-15] MEDS: methylPREDNISolone SOD SUC 125 MG/2 ML VIAL IV SCH ×3 (02:43→18:10)
[2016-09-15 03:53] LABS: ABG Base Excess -4.7 MMOL/L (-2.5-2.5); ABG Oxygen Saturation 97.4 % (95-100); ABG PCO2 30.2 MM HG (35-48); ABG PH 7.416 (7.35-7.45); ABG PO2 111.1 MM HG (80-95); ABG TCO2 19.9 MMOL/L (23-27); Allen Test Positive; Pt O2 Delivery Device Ventilator
[2016-09-15] MEDS: PIPERACILLIN/TAZOBACTAM 3,375 MG in SODIUM CHLORIDE 0.9% 100 ML IV SCH ×2 (04:19→18:08)
[2016-09-15 04:40] LABS: Hematocrit 30.7 VOL% (42.0-52.0); Hemoglobin 9.8 GM/DL (14.0-18.0); Immature Granulocytes % 0.4 %; Immature Granulocytes Absolute 0.03 #; Lymphocytes # 0.1 10*3/uL (1.4-4.0); Lymphocytes % 1.6 % (21.2-54.2); Mean Corpuscular HGB Conc 31.9 GM/DL (32-36); Mean Corpuscular Hemoglobin 30 PG (27-34); Mean Corpuscular Volume 93.3 FL (87-102); Mean Platelet Volume 11.8 FL (9.6-12.0); Monocytes # 0.1 10*3/uL (0.11-0.8); Monocytes % 1.8 % (1.7-12.7); Neutrophils # 7.4 10*3/uL (1.4-7.4); Neutrophils % 96.2 % (38.7-73.9); Platelet Count 99 T/CUMM (130-400); Red Blood Count 3.29 MC/CUMM (3.8-5.5); Red Cell Distribution Width 17.6 % (9.3-17.3); White Blood Count 7.7 T/CUMM (4-12)
[2016-09-15 05:08] LABS: Calcium 7.4 MG/DL (8.5-10.1); Magnesium 2.6 MG/DL (1.8-2.4); Osmolality,Calculated 320.1 MOS/KG (273-304); Potassium 4.4 MMOL/L (3.5-5.1)
[2016-09-15 05:09] LABS: Risk Ratio 2.67; VLDL CHOLESTEROL 41.2 MG/DL
[2016-09-15 05:15] LABS: Albumin 2.5 G/DL (3.4-5.0); Bilirubin,Direct 0.4 MG/DL (0.0-0.20); Bilirubin,Indirect 0.4 MG/DL (0.0-1.0); Bilirubin,Total 0.8 MG/DL (0.2-1.0); Total Protein 5.3 G/DL (6.4-8.3)
[2016-09-15 05:26] LABS: Band Neutrophils 10 % (0-10); Lymphocytes 4 % (20-55); Segmented Neutrophils 83 % (50-85); Total Cells Counted 100
[2016-09-15 05:27] LABS: Hypochromasia Slight; Microcytosis 1+
[2016-09-15 05:28] LABS: Ovalocytes Slight; Platelet Estimate Decreased
[2016-09-15 05:30] LABS: Albumin 2.5 G/DL (3.4-5.0); Calcium 7.3 MG/DL (8.5-10.1); Osmolality,Calculated 320.1 MOS/KG (273-304); Phosphorous 7.7 MG/DL (2.5-4.9); Potassium 4.4 MMOL/L (3.5-5.1)
--- NOTE | 2016-09-15 07:06 | EKG Report ---
Stationary ECG Study [facility] Test Date: 09/15/2016 7:05:59 AM Pat Name: STACEY RAI Department: Room: 128 Gender: M Senior Data Developer: MARLA : 1935 Requested by: Angie Sams Order Number: [id number] Reading MD: AZUCENA SUE Intervals [place] Rate: 77 P: 47 KS: 155 QRS: 117 QRSD: 172 T: -49 QT: 496 QTc: 528 Interpretive Statements SINUS RHYTHM RIGHT BUNDLE BRANCH BLOCK LEFT POSTERIOR FASCICULAR BLOCK MODERATE T-WAVE ABNORMALITY, CONSIDER LATERAL ISCHEMIA MODERATE T-WAVE ABNORMALITY, CONSIDER INFERIOR ISCHEMIA Electronically Signed On 09-15-16 17:08:37 CDT by AZUCENA SUE [email or web address]
--- NOTE | 2016-09-15 07:35 | XRay Report ---
Referring Physician: Jaime Vazquez MD Exam: XR chest 1V portable Date: September 15, 2016 at 3:28 AM Reason: Ventilator Comparison: Chest one view portable September 14, 2016 Findings: An endotracheal tube and feeding tube are again in place. The distal tip of the endotracheal tube projects 1 cm above the albina. The cardiac silhouette is again mildly enlarged. There are scattered opacities throughout both lungs. This could represent pulmonary edema and/or pneumonia. No pneumothorax is identified. The osseous structures appear stable. Impression: The distal tip of the endotracheal tube now projects 1 cm above the albina. The study is otherwise similar to before with persistent scattered opacities within both lungs. PROCEDURE INTERPRETED AT [facility] DEPARTMENT OF RADIOLOGY Final Report Signed by: Dr. Natasha Garcia
--- NOTE | 2016-09-15 07:59 | Hospitalist Progress Note ---
Hospitalist: Subjective Interval history: Pt only responsive to deep tactile stimulation off sedation. No fever. He was been weaned off Neonephrine and Epi. Still intubated on the vent. Exam - Constitutional Vitals: Period Temp Pulse Resp BP Sys/Call Pulse Ox Last 24 Hr 97.3 F-97.8 F 18-99 12-45 62-172/39-96 97-100 Exam: GEN: Intubated and sedated HEENT: Pupils sluggish but reactive, clear sclera, ETT in place NECK: trachea midline, No LAD or thyromegaly appreciated CV: RRR no M diminished heart tones LUNGS: diminished lung sounds, clear, nonlabored but does breath over the vent when sedation held ABD: soft, hypoactive, distended, no HSM or masses appreciated though difficult to assess given body habitus EXT: Warm no C/C/E Neuro: moves extremities to deep tactile stimulation Results - Labs CBC & BMP: 09/15/16 04:20 09/15/16 04:20 - Impressions (1) Acute hypoxic respiratory failure likely due aspiration pneumonia Status: Acute Assessment and plan: - Vent management per pulmonology - Cont IV antibiotics, bronchodilators, pulm toileting - Blood culture no growth to date. Sputum culture ordered 09/14 - Serial labs Current Visit: Yes (2) S/P Cardiopulmonary arrest with shock possibly cardiogenic vs. obstructive vs. septic Status: Acute Assessment and plan: - off neosynephrine - Continuing vent support. History of CHF and cardiac enzymes suggest myocardial infarction. 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 Cards following. No ACEi/ARB due to decreased elevated creatinine. Consider cautiously starting BB since BP better ( recent bradycardia). Cards following. ? Dobutamine if BP drops again which will help with contractility and improve cardiac output. Consider Arixtra or agatroban for anticoagulation. Will d/w cards. Current Visit: Yes (5) Acute renal failure suspect due to ATN due to poor perfusion/ hypotension with metabolic acidosis on suspected CKD ?stage 3 Status: Acute Assessment and plan: - Holding statin due to elevated CPK and Flomax. Urine studies reviewed. Renal U /S shows chronic scarring/ increased echogenicity. No obstruction. Renal following - Lactic acid normal - Hold colchicine - Avoid nephrotoxic agents - Vasoactive agents as needed to improve cardiac output with goal MAP >/= 65. Consider dobutamine Current Visit: Yes (6) Bradycardia - Resolved. Cards following. Holding BB at this time. (7) Anemia/ Thrombocytopenia - DIC panel negative. HIT Antibody pending. LDH is elevated and haptoglobin was not low. Serial labs. Hold Lovenox... (8) Acute encephalopathy possibly due to hypotension, hypoxia and infection - Neurology following. CT head showed chronic ischemic changes and atrophy. EEG pending DVT prophylaxis-SCDs. Consider Arixtra or agatroban for anticoagulation but will defer to cardiology. GI prophylaxis- Protonix IV 40 minutes spent with this patient. D/W nurse. D/W daughter Alycia [phone] and all questions answered. Overall prognosis is guarded.
--- NOTE | 2016-09-15 08:03 | Pulmonology Progress Note ---
Pulmonary - PN: Subj Interval history: 81-year-old [place] male with cardiopulmonary arrest. As apparent hypoxic brain injury. Neurology following. He is on the ventilator. ABGs acceptable. Cannot wean until mental status changes. Exam (Progress Note) - Constitutional Vitals: Period Temp Pulse Resp BP Sys/Call Pulse Ox Last 24 Hr 97.3 F-97.8 F 18-99 12-45 62-172/39-96 97-100 Exam: Unresponsive. Pupils small but reactive. Apparently has cataracts. Orotracheal tube in place. Neck is supple. Chest reveals some bibasilar rales otherwise clear. Heart normal rate rhythm no murmurs. Abdomen soft no masses. Extremities no clubbing cyanosis or edema. Results - Labs CBC & BMP: 09/15/16 04:20 09/15/16 04:20 Lab Results: I have reviewed the past 24 hour labs - Diagnostic Findings Procedure: Chest x-ray: image reviewed by me (Cardiomegaly. ET tube good position. Interstitial infiltrates bilaterally.) Assessment and Plan (1) Respiratory failure Status: Acute Assessment and plan: ABGs look good. Will reduce FiO2 and assist control rate a little. 09/15/2016 ABGs acceptable on current settings. Mental status will tell us what to do weaning device. At present not ready for any weaning trials. ABGs look good with a PO2 111, PCO2 30, pH 7.41. We will keep at present settings. Current Visit: Yes (2) Cardiopulmonary arrest Status: Acute Assessment and plan: Remains to be seen what his mental status will be like. Continuing support. History of cardiomyopathy and cardiac enzymes apparently myocardial infarction. 09/15/2016 apparent myocardial infarction with cardiac arrest and hypoxic brain injury. Current Visit: Yes (3) Pneumonia Status: Acute Assessment and plan: Agree with broad-spectrum antibiotics. 09/15/2016 continuing broad-spectrum antibiotics. Current Visit: Yes (4) History of cardiomyopathy Status: Acute Assessment and plan: Need an echo to see current LV function. 09/15/2016 cardiology following. Has ejection fraction 15-20%. Moderate AR. LVH with diastolic dysfunction as well. Current Visit: Yes (5) Increase in troponins Status: Acute Assessment and plan: Suggests a myocardial infarction. Patient did have a cardiac arrest with CPR. 09/15/2016 apparent myocardial infarction. Current Visit: Yes
--- NOTE | 2016-09-15 10:12 | Cardiology Progress Note ---
Assessment and Plan - Time spent with patient Time spent with patient: Greater than 30 minutes (1) Cardiomyopathy Status: Acute Assessment and plan: SEE PLAN OF CARE LISTED BELOW Current Visit: Yes (2) Aortic regurgitation Status: Acute Assessment and plan: SEE PLAN OF CARE LISTED BELOW Current Visit: Yes (3) Cardiopulmonary arrest Status: Acute Assessment and plan: SEE PLAN OF CARE LISTED BELOW Current Visit: Yes (4) Pneumonia Status: Acute Assessment and plan: SEE PLAN OF CARE LISTED BELOW Current Visit: Yes (5) Increase in troponins Status: Acute Assessment and plan: SEE PLAN OF CARE LISTED BELOW Current Visit: Yes (6) Respiratory failure Status: Acute Current Visit: Yes (7) ARF (acute renal failure) Status: Acute Assessment and plan: SEE PLAN OF CARE LISTED BELOW Current Visit: Yes Cardiology - PN: Subj Interval history: [employer] [facility]URNER: DR. KARLEE QUICK Patient is being seen in the ICU. SUMMARY: Mr. Gale, 81ChM, has previously been followed by Dr. Quick. He was last seen in cardiology clinic September 24, 2014. Risk factors include: Advanced age, known (moderate) coronary artery disease, hypertension, dyslipidemia, PVD, sedentary lifestyle. Last cardiac catheterization June 25, 2014 - see below for complete report. Patient presented to ER the evening of September 13, 2016 for shortness of breath. While in the emergency room, patient did code. It is felt that he became hypoxic and possibly aspirated in addition to his pneumonia. He has been housed in our CCU since admission. SEPTEMBER 15, 2016: Sedation has been withheld and responding only to aggressive tactile stimuli. He has been noted to have episodes of posturing. Patient's troponin remained significantly elevated. Due to patient's multiple comorbidities, medical management is as he is not a candidate for invasive workup at this time. Lovenox was held last evening due to patient's thrombocytopenia. Platelets have minimally improved overnight. Patient is not requiring pressors. Liver enzymes, though extremely high, have slightly improved overnight. Unfortunately, kidney function has worsened today. Echocardiogram revealed EF 15-20%, moderate aortic regurgitation, PAP 25 mmHg + RAP. Would like to introduce a beta-yamel for blood pressure will not allow for such. No arrhythmias noted. Vital signs are stable. CT head revealed no acute intracranial process though chronic ischemic change and atrophy. I will further discuss with Dr. Sargent and await additional recommendations. ASSESSMENT/PLAN: 1. CARDIOPULMONARY ARREST - critically ill. Continue ventilatory support, off pressors at this time. 2. CAD, MODERATE - history of moderate CAD. See report below regarding most recent results of heart catheterization 3. ELEVATED CARDIAC BIOMARKERS S/P CODE - continue current plan of care. Due to the patient's multiple comorbidities, medical management will ensue until he stabilizes. At that time, he will need further imaging investigation including cardiac catheterization. 4. PNEUMONIA - currently being treated with steroids, antibiotics and pulmonary toilet. 5. THROMBOCYTOPENIA - Lovenox has been held. Daily monitoring recommended. Continue aspirin. 6. ALTERED MENTAL STATUS - possibly anoxic brain injury. CT head reveals chronic changes, nothing acute. 7. ACUTE RENAL FAILURE - Stage III. Continue with close monitoring. May be related to hypoxemic event. 8. CARDIOMYOPATHY - Etiology unknown, duration unknown but suspect related to recent events. Unable to tolerate CEDRIC (ARF) or betablocker (blood pressure). 9. AORTIC REGURGITATION, MODERATE - continue current plan of care. 10. LIVER SHOCK - suspect elevated enzymes related to shock liver. Heart catheterization, performed by Dr. Karlee Quick, June 25, 2014: 1. Moderate CAD A. Right coronary artery with sequential 60%, 70% and 50% lesions 2. Right dominant coronary arteries 3. Ejection fraction 40% to 45%, although this was difficult to assess due to poor visualization of the left ventricle. 4. Mild to moderate aortic stenosis with a peak gradient of 35 mmHg, mean gradient of 16 mmHg. 5. Tortuous and calcified right iliac artery with mild to moderate atherosclerotic vascular disease no evidence of vascular complication. Exam (Progress Note) - Constitutional Vitals: Period Temp Pulse Resp BP Sys/Call Pulse Ox Last 24 Hr 97.3 F-97.8 F 18-99 12-45 62-172/39-96 97-100 Exam: General: [Appears critically ill. ] [Remains intubated. ] [Appears comfortable. ] HEENT: [Normocephalic, atraumatic. Mucous membranes moist. No jaundice noted. Conjunctiva moist and clear, sclerae anicteric] Neck: No obvious JVD/HJR, no thyromegaly or lymphadenopathy noted. No carotid bruit appreciated Cardiac: [Regular rate and rhythm.] [No obvious murmur rub or gallop.] Lungs: [Rhonchi noted throughout. Symmetrical chest wall movements noted. Remains intubated. Abdomen: Soft, bowel sounds normoactive. Nontender and nondistended. No abdominal bruit or thrill noted. No masses noted. Musculoskeletal: No fluid collection. Decreased range of motion is noted. Extremities: No clubbing, cyanosis noted. [ Trace edema noted. ] Upper extremity pulses 2+. Lower extremity pulses 1+. Capillary refill less than 3 seconds. Skin: Multiple areas of ecchymosis. No skin breakdown appreciated. Neuro: Not following commands at this time. No essential tremors appreciated. Result/EKG - Labs CBC & BMP: 09/15/16 04:20 09/15/16 04:20 Lab Results: I have reviewed the past 24 hour labs Labs: Laboratory Results - last 24 hr 09/14/16 09/14/16 09/14/16 14:07 14:07 14:08 WBC RBC Hgb Hct MCV MCH MCHC RDW Plt Count MPV Neut % (Auto) Lymph % (Auto) [place] % (Auto) Eos % (Auto) Baso % (Auto) Neut # (Auto) Lymph # (Auto) [place] # (Auto) Eos # (Auto) Baso # (Auto) Total Counted Immature Gran % Nucleated RBC % Immature Gran # Segmented Neutrophils Band Neutrophils Lymphocytes Monocytes Nucleated RBCs # Platelet Estimate Hypochromasia Microcytosis Ovalocytes Haptoglobin INR PT Patient/Control Mix Fibrinogen D-Dimer, Quantitative Circ Anticoag PTT Plt Func Screen - ADP Plt Func Scrn - Epineph ABG pH ABG pCO2 ABG pO2 ABG HCO3 ABG Total CO2 ABG O2 Saturation ABG Base Excess FiO2 Sodium Potassium Chloride Carbon Dioxide Anion Gap BUN Creatinine GFR Calculation BUN/Creatinine Ratio Glucose Calculated Osmolality Lactic Acid 1.5 Calcium Phosphorus Magnesium Total Bilirubin 0.70 Direct Bilirubin 0.40 H Indirect Bilirubin 0.3 AST 2859 H ALT 2019 H Alkaline Phosphatase 114 Lactate Dehydrogenase Total Creatine Kinase CK-MB (CK-2) CK and CKMB Interp Troponin I Total Protein 5.2 L Albumin 2.4 L Triglycerides Cholesterol LDL Cholesterol VLDL Cholesterol HDL Cholesterol Heart Disease Risk Ratio Free T4 0.97 TSH 3rd Generation 3.280 Urine Eosinophils Urine Myoglobin Ur Random Creatinine Ur Random Sodium 09/14/16 09/14/16 09/14/16 14:13 14:13 14:15 WBC RBC Hgb Hct MCV MCH MCHC RDW Plt Count 92 L MPV Neut % (Auto) Lymph % (Auto) [place] % (Auto) Eos % (Auto) Baso % (Auto) Neut # (Auto) Lymph # (Auto) [place] # (Auto) Eos # (Auto) Baso # (Auto) Total Counted Immature Gran % Nucleated RBC % Immature Gran # Segmented Neutrophils Band Neutrophils Lymphocytes Monocytes Nucleated RBCs # Platelet Estimate Hypochromasia Microcytosis Ovalocytes Haptoglobin INR 1.4 PT Patient/Control Mix 15.6 D Fibrinogen 447 H D-Dimer, Quantitative >= 35.2 Circ Anticoag PTT 47.3 H D Plt Func Screen - ADP > 220 H Plt Func Scrn - Epineph > 300 H ABG pH ABG pCO2 ABG pO2 ABG HCO3 ABG Total CO2 ABG O2 Saturation ABG Base Excess FiO2 Sodium Potassium Chloride Carbon Dioxide Anion Gap BUN Creatinine GFR Calculation BUN/Creatinine Ratio Glucose Calculated Osmolality Lactic Acid Calcium Phosphorus Magnesium Total Bilirubin Direct Bilirubin Indirect Bilirubin AST ALT Alkaline Phosphatase Lactate Dehydrogenase Total Creatine Kinase CK-MB (CK-2) CK and CKMB Interp Troponin I Total Protein Albumin Triglycerides Cholesterol LDL Cholesterol VLDL Cholesterol HDL Cholesterol Heart Disease Risk Ratio Free T4 TSH 3rd Generation Urine Eosinophils 1 Urine Myoglobin Ur Random Creatinine Ur Random Sodium 09/14/16 09/14/16 09/14/16 14:15 14:16 14:16 WBC RBC Hgb Hct MCV MCH MCHC RDW Plt Count MPV Neut % (Auto) Lymph % (Auto) [place] % (Auto) Eos % (Auto) Baso % (Auto) Neut # (Auto) Lymph # (Auto) [place] # (Auto) Eos # (Auto) Baso # (Auto) Total Counted Immature Gran % Nucleated RBC % Immature Gran # Segmented Neutrophils Band Neutrophils Lymphocytes Monocytes Nucleated RBCs # Platelet Estimate Hypochromasia Microcytosis Ovalocytes Haptoglobin 200.0 INR PT Patient/Control Mix Fibrinogen D-Dimer, Quantitative Circ Anticoag PTT Plt Func Screen - ADP Plt Func Scrn - Epineph ABG pH ABG pCO2 ABG pO2 ABG HCO3 ABG Total CO2 ABG O2 Saturation ABG Base Excess FiO2 Sodium Potassium Chloride Carbon Dioxide Anion Gap BUN Creatinine GFR Calculation BUN/Creatinine Ratio Glucose Calculated Osmolality Lactic Acid Calcium Phosphorus Magnesium Total Bilirubin Direct Bilirubin Indirect Bilirubin AST ALT Alkaline Phosphatase Lactate Dehydrogenase 2064 H Total Creatine Kinase 12147 H D CK-MB (CK-2) 130.5 H D CK and CKMB Interp 1.2 Troponin I 71.900 H D Total Protein Albumin Triglycerides Cholesterol LDL Cholesterol VLDL Cholesterol HDL Cholesterol Heart Disease Risk Ratio Free T4 TSH 3rd Generation Urine Eosinophils Urine Myoglobin Ur Random Creatinine Ur Random Sodium 09/14/16 09/14/16 09/14/16 14:20 14:20 Unknown WBC RBC Hgb Hct MCV MCH MCHC RDW Plt Count MPV Neut % (Auto) Lymph % (Auto) [place] % (Auto) Eos % (Auto) Baso % (Auto) Neut # (Auto) Lymph # (Auto) [place] # (Auto) Eos # (Auto) Baso # (Auto) Total Counted Immature Gran % Nucleated RBC % Immature Gran # Segmented Neutrophils Band Neutrophils Lymphocytes Monocytes Nucleated RBCs # Platelet Estimate Hypochromasia Microcytosis Ovalocytes Haptoglobin INR PT Patient/Control Mix Fibrinogen D-Dimer, Quantitative Circ Anticoag PTT Plt Func Screen - ADP Plt Func Scrn - Epineph ABG pH ABG pCO2 ABG pO2 ABG HCO3 ABG Total CO2 ABG O2 Saturation ABG Base Excess FiO2 Sodium Potassium Chloride Carbon Dioxide Anion Gap BUN Creatinine GFR Calculation BUN/Creatinine Ratio Glucose Calculated Osmolality Lactic Acid Calcium Phosphorus Magnesium Total Bilirubin Direct Bilirubin Indirect Bilirubin AST ALT Alkaline Phosphatase Lactate Dehydrogenase Total Creatine Kinase CK-MB (CK-2) CK and CKMB Interp Troponin I Total Protein Albumin Triglycerides Cholesterol LDL Cholesterol VLDL Cholesterol HDL Cholesterol Heart Disease Risk Ratio Free T4 TSH 3rd Generation Urine Eosinophils Urine Myoglobin Negative Ur Random Creatinine 14 Ur Random Sodium 116.0 09/15/16 09/15/16 09/15/16 01:26 03:30 04:20 WBC RBC Hgb Hct MCV MCH MCHC RDW Plt Count MPV Neut % (Auto) Lymph % (Auto) [place] % (Auto) Eos % (Auto) Baso % (Auto) Neut # (Auto) Lymph # (Auto) [place] # (Auto) Eos # (Auto) Baso # (Auto) Total Counted Immature Gran % Nucleated RBC % Immature Gran # Segmented Neutrophils Band Neutrophils Lymphocytes Monocytes Nucleated RBCs # Platelet Estimate Hypochromasia Microcytosis Ovalocytes Haptoglobin INR PT Patient/Control Mix Fibrinogen D-Dimer, Quantitative Circ Anticoag PTT Plt Func Screen - ADP Plt Func Scrn - Epineph ABG pH 7.416 ABG pCO2 30.2 L ABG pO2 111.1 H ABG HCO3 19.0 L ABG Total CO2 19.9 L ABG O2 Saturation 97.4 ABG Base Excess -4.7 L FiO2 50.00 Sodium Potassium Chloride Carbon Dioxide Anion Gap BUN Creatinine GFR Calculation BUN/Creatinine Ratio Glucose Calculated Osmolality Lactic Acid 1.2 Calcium Phosphorus Magnesium Total Bilirubin Direct Bilirubin Indirect Bilirubin AST ALT Alkaline Phosphatase Lactate Dehydrogenase Total Creatine Kinase 38701 H D CK-MB (CK-2) CK and CKMB Interp Troponin I Total Protein Albumin Triglycerides Cholesterol LDL Cholesterol VLDL Cholesterol HDL Cholesterol Heart Disease Risk Ratio Free T4 TSH 3rd Generation Urine Eosinophils Urine Myoglobin Ur Random Creatinine Ur Random Sodium 09/15/16 09/15/16 09/15/16 04:20 04:20 04:20 WBC 7.7 RBC 3.29 L Hgb 9.8 L Hct 30.7 L MCV 93.3 MCH 30 MCHC 31.9 L RDW 17.6 H Plt Count 99 L MPV 11.8 Neut % (Auto) 96.2 H Lymph % (Auto) 1.6 L [place] % (Auto) 1.8 Eos % (Auto) 0.0 Baso % (Auto) 0.0 Neut # (Auto) 7.4 Lymph # (Auto) 0.1 L [place] # (Auto) 0.1 L Eos # (Auto) 0.0 Baso # (Auto) 0.0 Total Counted 100 Immature Gran % 0.4 Nucleated RBC % 0.0 Immature Gran # 0.03 Segmented Neutrophils 83 Band Neutrophils 10 Lymphocytes 4 L Monocytes 3 Nucleated RBCs # 0.00 Platelet Estimate Decreased Hypochromasia Slight Microcytosis 1+ Ovalocytes Slight Haptoglobin INR PT Patient/Control Mix Fibrinogen D-Dimer, Quantitative Circ Anticoag PTT Plt Func Screen - ADP Plt Func Scrn - Epineph ABG pH ABG pCO2 ABG pO2 ABG HCO3 ABG Total CO2 ABG O2 Saturation ABG Base Excess FiO2 Sodium 149 H 149 H Potassium 4.4 4.4 Chloride 114 H 114 H Carbon Dioxide 18 L 18 L Anion Gap 21.4 H 21.4 H BUN 81 H D 81 H Creatinine 4.00 H 4.00 H GFR Calculation 12 12 BUN/Creatinine Ratio 20.00 20.00 Glucose 114 H 114 H Calculated Osmolality 320.1 H 320.1 H Lactic Acid Calcium 7.4 L 7.3 L Phosphorus 7.7 H Magnesium 2.6 H Total Bilirubin Direct Bilirubin Indirect Bilirubin AST ALT Alkaline Phosphatase Lactate Dehydrogenase Total Creatine Kinase CK-MB (CK-2) CK and CKMB Interp Troponin I Total Protein Albumin 2.5 L Triglycerides Cholesterol LDL Cholesterol VLDL Cholesterol HDL Cholesterol Heart Disease Risk Ratio Free T4 TSH 3rd Generation Urine Eosinophils Urine Myoglobin Ur Random Creatinine Ur Random Sodium 09/15/16 09/15/16 04:20 04:20 WBC RBC Hgb Hct MCV MCH MCHC RDW Plt Count MPV Neut % (Auto) Lymph % (Auto) [place] % (Auto) Eos % (Auto) Baso % (Auto) Neut # (Auto) Lymph # (Auto) [place] # (Auto) Eos # (Auto) Baso # (Auto) Total Counted Immature Gran % Nucleated RBC % Immature Gran # Segmented Neutrophils Band Neutrophils Lymphocytes Monocytes Nucleated RBCs # Platelet Estimate Hypochromasia Microcytosis Ovalocytes Haptoglobin INR PT Patient/Control Mix Fibrinogen D-Dimer, Quantitative Circ Anticoag PTT Plt Func Screen - ADP Plt Func Scrn - Epineph ABG pH ABG pCO2 ABG pO2 ABG HCO3 ABG Total CO2 ABG O2 Saturation ABG Base Excess FiO2 Sodium Potassium Chloride Carbon Dioxide Anion Gap BUN Creatinine GFR Calculation BUN/Creatinine Ratio Glucose Calculated Osmolality Lactic Acid Calcium Phosphorus Magnesium Total Bilirubin 0.80 Direct Bilirubin 0.40 H Indirect Bilirubin 0.4 AST 1925 H ALT 1822 H Alkaline Phosphatase 108 Lactate Dehydrogenase Total Creatine Kinase CK-MB (CK-2) CK and CKMB Interp Troponin I Total Protein 5.3 L Albumin 2.5 L Triglycerides 206 H Cholesterol 120 LDL Cholesterol 43.0 VLDL Cholesterol 41.2 HDL Cholesterol 45 Heart Disease Risk Ratio 2.67 Free T4 TSH 3rd Generation Urine Eosinophils Urine Myoglobin Ur Random Creatinine Ur Random Sodium - Diagnostic Findings Procedure: Chest x-ray: report reviewed by me, CT: report reviewed by me (Head) - EKG EKG results: interpreted by me EKG shows: sinus rhythm
[2016-09-15] MEDS: SODIUM CHLORIDE 23.4% CONC INJ 38.5 MEQ, SODIUM BICARB INJ 100 MEQ in STERILE WATER INJ... IV SCH (10:37)
[2016-09-15] MEDS: ALLOPURINOL 100 MG TABLET PO SCH (10:39)
[2016-09-15] MEDS: ASPIRIN EC 81 MG TABLET PO SCH (10:39)
--- NOTE | 2016-09-15 11:18 | Nephrology Progress Note ---
Nephrology - PN: Subj Interval history: He remains on the ventilator. He is not responsive. He is not requiring pressors now Exam (PN)-Nephrology - Vital Signs Vital signs: Period Temp Pulse Resp BP Sys/Call Pulse Ox Last 24 Hr 97.3 F-97.8 F 18-99 16-45 62-172/39-96 97-100 Exam: Gen.: On ventilator. Responds only to pain ENT: Intubated Neck: Supple. No JVD or bruit. Cardiovascular: Regular rate and rhythm. No murmur rub or gallop Lungs: Bilateral rhonchi right greater than left Abdomen: Soft. Nontender. Positive bowel sounds. No organomegaly Extremities: No edema - Lab 09/15/16 04:20 09/15/16 04:20 Most recent lab results ABG pH 7.416 (7.35-7.45) 09/15/16 03:30 ABG pCO2 30.2 MM HG (35-48) L 09/15/16 03:30 ABG pO2 111.1 MM HG (80-95) H 09/15/16 03:30 ABG HCO3 19.0 MMOL/L (20-26) L 09/15/16 03:30 ABG O2 Saturation 97.4 % (95-100) 09/15/16 03:30 Calcium 7.3 MG/DL (8.5-10.1) L 09/15/16 04:20 Phosphorus 7.7 MG/DL (2.5-4.9) H 09/15/16 04:20 Magnesium 2.6 MG/DL (1.8-2.4) H 09/15/16 04:20 Assessment and Plan (1) ARF (acute renal failure) Status: Acute Assessment and plan: 81-year-old man with: * Pneumonia * Cardiopulmonary arrest. Continue ventilatory support * Probable acute LA. * Cardiomyopathy. EF 15-20% * ARF. Creatinine is higher today. CPK 12,900 Current Visit: Yes (2) Cardiopulmonary arrest Status: Acute Current Visit: Yes (3) History of cardiomyopathy Status: Acute Current Visit: Yes (4) Hypoxic encephalopathy Status: Acute Current Visit: Yes (5) Increase in troponins Status: Acute Current Visit: Yes (6) Pneumonia Status: Acute Current Visit: Yes (7) Respiratory failure Status: Acute Current Visit: Yes
[2016-09-15] MEDS: ACETYLCYSTEINE 20% 800 MG/4 ML VIAL RESP TX SCH ×2 (15:15→23:30)
--- NOTE | 2016-09-15 18:00 | Neurology Progress Note ---
Neurology - PN : Subjective Interval history: Mr. Gale continue to remain same. Still not waking up. On vent. Withdrawing some on deep painful stimuli in the lower extremities only. CT of the head reveals no acute abnormalities. Exam (Progress Note) - Constitutional Vitals: Period Temp Pulse Resp BP Sys/Call Pulse Ox Last 24 Hr 97.3 F-97.8 F 18-99 16-30 62-148/39-85 97-100 Exam: GENERAL: Patient is in no acute distress. NECK: Neck is supple. There is no JVD. No carotid bruits present. No thyroid masses. CVS: First and second heart sounds are normal. There is no S3 present. Regular rate and rhythm. RESPIRATORY: Lungs are clear to auscultation without any rales or rhonchi. ABDOMEN: Soft and non-tender. Bowel sounds are present. There is no hepatosplenomegaly. EXT: There is no palpable edema. Peripheral pulses are present. Skin: No rashes Central Nervous system: General: Unresponsive on vent Speech: None Comprehension: None Facial expressions: Normal Cranial Nerves: Pupils are sluggish but reactive. Doll's head eye movements are negative. No facial asymmetry seen. Motor: Bulk and Tone is normal. Strength cannot be assessed Sensory: Cannot be assessed Reflexes: 1+ and symmetrical Cerebellar function: Normal finger to nose and heel to [place] testing. Toes: Equivocal Gait: Cannot be assessed Results - Labs CBC & BMP: 09/15/16 04:20 09/15/16 04:20 Assessment and Plan (1) Hypoxic encephalopathy Status: Acute Assessment and plan: Hypoxic/anoxic encephalopathy secondary to cardiopulmonary arrest Continue supportive management at this time Prognosis is guarded. Current Visit: Yes
[2016-09-15] MEDS: ATORVASTATIN 20 MG TABLET PO SCH (22:00)
[2016-09-15] MEDS: PANTOPRAZOLE 40 MG VIAL IV SCH (22:00)
[2016-09-15] MEDS: PROPOFOL 1,000 MG/100 ML BOTTLE IV SCH (22:00)
[2016-09-16] MEDS: methylPREDNISolone SOD SUC 125 MG/2 ML VIAL IV SCH ×3 (01:22→19:05)
[2016-09-16] MEDS: PHENYLEPHRINE DRIP 40 MG/250 ML PREMIX IV SCH (01:22)
[2016-09-16] MEDS: SODIUM CHLORIDE 23.4% CONC INJ 38.5 MEQ, SODIUM BICARB INJ 100 MEQ in STERILE WATER INJ... IV SCH ×2 (01:22→15:22)
[2016-09-16 03:55] LABS: ABG Base Excess -0.8 MMOL/L (-2.5-2.5); ABG HCO3 23.7 MMOL/L (20-26); ABG PCO2 33.1 MM HG (35-48); ABG PH 7.445 (7.35-7.45); ABG TCO2 20.9 MMOL/L (23-27); Allen Test Positive; Pt O2 Delivery Device Ventilator
[2016-09-16 05:55] LABS: Basophils % 0.1 % (0.0-0.8); Hematocrit 27.7 VOL% (42.0-52.0); Immature Granulocytes % 0.6 %; Immature Granulocytes Absolute 0.05 #; Lymphocytes # 0.2 10*3/uL (1.4-4.0); Mean Corpuscular HGB Conc 32.5 GM/DL (32-36); Mean Corpuscular Hemoglobin 30 PG (27-34); Mean Corpuscular Volume 91.1 FL (87-102); Mean Platelet Volume 12.4 FL (9.6-12.0); Monocytes # 0.2 10*3/uL (0.11-0.8); Monocytes % 1.9 % (1.7-12.7); Neutrophils # 8.2 10*3/uL (1.4-7.4); Neutrophils % 95.4 % (38.7-73.9); Red Blood Count 3.04 MC/CUMM (3.8-5.5); Red Cell Distribution Width 17.5 % (9.3-17.3); White Blood Count 8.6 T/CUMM (4-12)
[2016-09-16 05:58] LABS: Platelet Count 89 T/CUMM (130-400)
[2016-09-16] MEDS: PIPERACILLIN/TAZOBACTAM 3,375 MG in SODIUM CHLORIDE 0.9% 100 ML IV SCH ×2 (06:12→19:04)
[2016-09-16 06:25] LABS: Calcium 6.8 MG/DL (8.5-10.1); Magnesium 2.9 MG/DL (1.8-2.4); Osmolality,Calculated 327.6 MOS/KG (273-304); Potassium 4.2 MMOL/L (3.5-5.1)
[2016-09-16 06:29] LABS: Calcium 6.7 MG/DL (8.5-10.1); Osmolality,Calculated 329.3 MOS/KG (273-304); Potassium 4.3 MMOL/L (3.5-5.1); Prealbumin 13.9 MG/DL (20-40)
[2016-09-16 06:33] LABS: Band Neutrophils 3 % (0-10); Hypochromasia 1+; Lymphocytes 3 % (20-55); Microcytosis 1+; Segmented Neutrophils 90 % (50-85); Total Cells Counted 100
[2016-09-16 06:34] LABS: Ovalocytes Slight; Platelet Estimate Decreased
--- NOTE | 2016-09-16 07:17 | Electroencephalogram ---
HISTORY: An 81-year-old patient with history of change in mental status. EEG done for 30 minutes. INTRODUCTION: A digital EEG was performed using the standard 10/20 system of electrode placement wit h one channel of EKG monitoring. Photic stimulation is performed. DESCRIPTION OF RECORD: The background is disorganized, consists of 3 to 4 hertz low amplitude bilate rally symmetrical rhythm. Photic stimulation does not elicit driving response. There are no focal, sharp-wave, spike or wave activity seen. Heart rate 70 beats per minute. IMPRESSION: ABNORMAL EEG DUE TO GENERALIZED SLOWING. CLINICAL CORRELATION: This record is supportive of moderate to severe encephalopathy, which could be secondary to postictal state, posthypoxic state, metabolic disorder, diffuse END STAPLER insult, or increase d intracranial pressure. No epileptiform/seizure activity seen. Clinical correlation is suggested.
--- NOTE | 2016-09-16 07:48 | Pulmonology Progress Note ---
Pulmonary - PN: Subj Interval history: 81-year-old [place] male with cardiopulmonary arrest. As apparent hypoxic brain injury. Neurology following. He is on the ventilator. ABGs acceptable. Cannot wean until mental status changes. 09/16/2016 patient remains unresponsive. Does have pupillary reflexes. Severe hypoxic brain injury apparently. Continuing mechanical ventilatory support for now. Exam (Progress Note) - Constitutional Vitals: Period Temp Pulse Resp BP Sys/Call Pulse Ox Last 24 Hr 97.4 F-98.7 F 76-108 14-31 108-180/57-85 96-100 Exam: Unresponsive. Pupils small but reactive. Apparently has cataracts. Orotracheal tube in place. Neck is supple. Chest reveals some bibasilar rales otherwise clear. Heart normal rate rhythm no murmurs. Abdomen soft no masses. Extremities no clubbing cyanosis or edema. Little change from yesterday. Results - Labs CBC & BMP: 09/16/16 05:09 09/16/16 05:09 Lab Results: I have reviewed the past 24 hour labs - Diagnostic Findings Procedure: Chest x-ray: image reviewed by me (ET tube acceptable location. Patchy interstitial edema bilaterally. Cardiomegaly. Little change from yesterday.) Assessment and Plan (1) Respiratory failure Status: Acute Assessment and plan: ABGs look good. Will reduce FiO2 and assist control rate a little. 09/15/2016 ABGs acceptable on current settings. Mental status will tell us what to do weaning device. At present not ready for any weaning trials. ABGs look good with a PO2 111, PCO2 30, pH 7.41. We will keep at present settings. 09/16/2016 ABGs acceptable. Mental status does not allow weaning as yet. Current Visit: Yes (2) Cardiopulmonary arrest Status: Acute Assessment and plan: Remains to be seen what his mental status will be like. Continuing support. History of cardiomyopathy and cardiac enzymes apparently myocardial infarction. 09/15/2016 apparent myocardial infarction with cardiac arrest and hypoxic brain injury. 09/16/2016 status post myocardial infarction with cardiac arrest. Has severe hypoxic brain injury. Current Visit: Yes (3) Pneumonia Status: Acute Assessment and plan: Agree with broad-spectrum antibiotics. 09/15/2016 continuing broad-spectrum antibiotics. 09/16/2016 empiric antibiotics. Has gram-negative rods in sputum. Should be covered with Zosyn. Current Visit: Yes (4) History of cardiomyopathy Status: Acute Assessment and plan: Need an echo to see current LV function. 09/15/2016 cardiology following. Has ejection fraction 15-20%. Moderate AR. LVH with diastolic dysfunction as well. 09/16/2016 severe cardiomyopathy which appears to be ischemic. Current Visit: Yes (5) Increase in troponins Status: Acute Assessment and plan: Suggests a myocardial infarction. Patient did have a cardiac arrest with CPR. 09/15/2016 apparent myocardial infarction. 09/16/2016 acute myocardial infarction. Current Visit: Yes
[2016-09-16] MEDS: ACETYLCYSTEINE 20% 800 MG/4 ML VIAL RESP TX SCH ×2 (08:02→14:15)
--- NOTE | 2016-09-16 08:14 | Hospitalist Progress Note ---
Hospitalist: Subjective Interval history: No change in neuro status. No fever. He had some bleeding from mouth with oral care that started last night but no oral lesions reported. Nursing reported increased residuals overnight. Exam - Constitutional Vitals: Period Temp Pulse Resp BP Sys/Call Pulse Ox Last 24 Hr 97.4 F-98.7 F 76-108 14-31 108-180/57-85 96-100 Exam: GEN: Intubated and sedated HEENT: Pupils sluggish but reactive, clear sclera, ETT in place NECK: trachea midline, No LAD or thyromegaly appreciated CV: RRR no M diminished heart tones LUNGS: diminished lung sounds, coarse bilaterally, nonlabored but does breath over the vent when sedation held ABD: soft, hypoactive, distended, no HSM or masses appreciated though difficult to assess given body habitus EXT: Warm no C/C/E Neuro: moves extremities to deep tactile stimulation Results - Labs CBC & BMP: 09/16/16 05:09 09/16/16 05:09 Labs: Sputum culture- GNR + Yeast Blood culture- NGTD - Impressions (1) Acute hypoxic respiratory failure likely due aspiration pneumonia Status: Acute Assessment and plan: - Vent management per pulmonology - Cont IV antibiotics, bronchodilators, pulm toileting - Blood culture no growth to date. Sputum culture ordered / - Serial labs Current Visit: Yes (2) S/P Cardiopulmonary arrest with shock possibly cardiogenic vs. obstructive vs. septic Status: Acute Assessment and plan: - off neosynephrine - Continuing vent support. History of CHF and cardiac enzymes suggest myocardial infarction. 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 Cards following. No ACEi/ARB due to decreased elevated creatinine. Cards declines starting BB due to recent hypotension and recent bradycardia. Cards following. ? Dobutamine if BP drops again which will help with contractility and improve cardiac output. Consider Arixtra or agatroban for anticoagulation. Will defer to cardiology. Current Visit: Yes (5) Acute renal failure suspect due to ATN due to poor perfusion/ hypotension with metabolic acidosis on suspected CKD ?stage 3- worsening Status: Acute Assessment and plan: - Holding statin due to elevated CPK and Flomax. CPK improving. Urine studies reviewed. Renal U/S shows chronic scarring/ increased echogenicity. No obstruction. Renal following - Lactic acid normal - Hold colchicine - Avoid nephrotoxic agents - Vasoactive agents as needed to improve cardiac output with goal MAP >/= 65. Consider dobutamine if need to start Current Visit: Yes (6) Bradycardia - Resolved. Cards following. Holding BB at this time. (7) Anemia/ Thrombocytopenia- stable - DIC panel negative. HIT Antibody pending. LDH is elevated and haptoglobin was not low. Serial labs. Hold Lovenox... (8) Acute encephalopathy possibly due to hypotension, hypoxia and infection - Neurology following. CT head showed chronic ischemic changes and atrophy. 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 No epileptiform/ seizure activity seen. DVT prophylaxis-SCDs. Consider Arixtra or agatroban for anticoagulation but will defer to cardiology. GI prophylaxis- Protonix IV 34 minutes spent with this patient. D/W nurse. D/W daughter Alycia [phone] and all questions answered. Overall prognosis is guarded.
[2016-09-16] MEDS: ALLOPURINOL 100 MG TABLET PO SCH (09:12)
[2016-09-16] MEDS: ASPIRIN EC 81 MG TABLET PO SCH (09:12)
[2016-09-16] MEDS: MULTIVITAMIN LIQUID (CENTRUM) 60 ML BOTTLE PER TUBE SCH (09:13)
--- NOTE | 2016-09-16 09:30 | Neurology Progress Note ---
Neurology - PN : Subjective Interval history: Mr. Gale continue remain same. He is a still unresponsive. Not waking up. Some withdrawal seen on deep painful stimuli. Exam (Progress Note) - Constitutional Vitals: Period Temp Pulse Resp BP Sys/Call Pulse Ox Last 24 Hr 97.4 F-98.7 F 76-108 14-31 108-180/57-85 96-100 Exam: GENERAL: Patient is in no acute distress. NECK: Neck is supple. There is no JVD. No carotid bruits present. No thyroid masses. CVS: First and second heart sounds are normal. There is no S3 present. Regular rate and rhythm. RESPIRATORY: Lungs are clear to auscultation without any rales or rhonchi. ABDOMEN: Soft and non-tender. Bowel sounds are present. There is no hepatosplenomegaly. EXT: There is no palpable edema. Peripheral pulses are present. Skin: No rashes Central Nervous system: General: Unresponsive on vent Speech: None Comprehension: None Facial expressions: Normal Cranial Nerves: Pupils are sluggish but reactive. Doll's head eye movements are negative. No facial asymmetry seen. Motor: Bulk and Tone is normal. Strength cannot be assessed Sensory: Cannot be assessed Reflexes: 1+ and symmetrical Cerebellar function: Normal finger to nose and heel to [place] testing. Toes: Equivocal Gait: Cannot be assessed Results - Labs CBC & BMP: 09/16/16 05:09 09/16/16 05:09 Assessment and Plan (1) Hypoxic encephalopathy Status: Acute Assessment and plan: Hypoxic/anoxic encephalopathy secondary to cardiopulmonary arrest Continue supportive management at this time Prognosis is poor. Current Visit: Yes
--- NOTE | 2016-09-16 10:02 | Cardiology Progress Note ---
Assessment and Plan (1) Cardiomyopathy Status: Acute Assessment and plan: SEE PLAN OF CARE LISTED BELOW Current Visit: Yes (2) Aortic regurgitation Status: Acute Assessment and plan: SEE PLAN OF CARE LISTED BELOW Current Visit: Yes (3) Cardiopulmonary arrest Status: Acute Assessment and plan: SEE PLAN OF CARE LISTED BELOW Current Visit: Yes (4) Pneumonia Status: Acute Assessment and plan: SEE PLAN OF CARE LISTED BELOW Current Visit: Yes (5) Increase in troponins Status: Acute Assessment and plan: SEE PLAN OF CARE LISTED BELOW Current Visit: Yes (6) Respiratory failure Status: Acute Current Visit: Yes (7) ARF (acute renal failure) Status: Acute Assessment and plan: SEE PLAN OF CARE LISTED BELOW Current Visit: Yes Cardiology - PN: Subj Interval history: 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 SUMMARY: Mr. Gale, 81ChM, has previously been followed by Dr. Quick. He was last seen in cardiology clinic September 24, 2014. Risk factors include: Advanced age, known (moderate) coronary artery disease, hypertension, dyslipidemia, PVD, sedentary lifestyle. Last cardiac catheterization June 25, 2014 - see below for complete report. Patient presented to ER the evening of September 13, 2016 for shortness of breath. While in the emergency room, patient did code. It is felt that he became hypoxic and possibly aspirated in addition to his pneumonia. He has been housed in our CCU since admission. SEPTEMBER 15, 2016: Sedation has been withheld and responding only to aggressive tactile stimuli. He has been noted to have episodes of posturing. Patient's troponin remained significantly elevated. Due to patient's multiple comorbidities, medical management is as he is not a candidate for invasive workup at this time. Lovenox was held last evening due to patient's thrombocytopenia. Platelets have minimally improved overnight. Patient is not requiring pressors. Liver enzymes, though extremely high, have slightly improved overnight. Unfortunately, kidney function has worsened today. Echocardiogram revealed EF 15-20%, moderate aortic regurgitation, PAP 25 mmHg + RAP. Would like to introduce a beta-yamel for blood pressure will not allow for such. No arrhythmias noted. Vital signs are stable. CT head revealed no acute intracranial process though chronic ischemic change and atrophy. I will further discuss with Dr. Sargent and await additional recommendations. SEPTEMBER 16, 2016: Little improvement has been noted overnight. Continues to be unresponsive. He remains thrombocytopenic with platelet count of 89 this morning. Vital signs otherwise are stable. Little to add. Prognosis is poor. ASSESSMENT/PLAN: 1. CARDIOPULMONARY ARREST - critically ill. Continue ventilatory support, off pressors at this time. 2. CAD, MODERATE - history of moderate CAD. See report below regarding most recent results of heart catheterization 3. ELEVATED CARDIAC BIOMARKERS S/P CODE - continue current plan of care. Due to the patient's multiple comorbidities, medical management will ensue until he stabilizes. At that time, he will need further imaging investigation including cardiac catheterization. 4. PNEUMONIA - currently being treated with steroids, antibiotics and pulmonary toilet. 5. THROMBOCYTOPENIA - Lovenox has been held. Daily monitoring recommended. Continue aspirin. 6. ALTERED MENTAL STATUS - possibly anoxic brain injury. CT head reveals chronic changes, nothing acute. 7. ACUTE RENAL FAILURE - Stage III. Continue with close monitoring. May be related to hypoxemic event. 8. CARDIOMYOPATHY - Etiology unknown, duration unknown but suspect related to recent events. Unable to tolerate CEDRIC (ARF) or betablocker (blood pressure). 9. AORTIC REGURGITATION, MODERATE - continue current plan of care. 10. LIVER SHOCK - suspect elevated enzymes related to shock liver. Heart catheterization, performed by Dr. Karlee Quick, June 25, 2014: 1. Moderate CAD A. Right coronary artery with sequential 60%, 70% and 50% lesions 2. Right dominant coronary arteries 3. Ejection fraction 40% to 45%, although this was difficult to assess due to poor visualization of the left ventricle. 4. Mild to moderate aortic stenosis with a peak gradient of 35 mmHg, mean gradient of 16 mmHg. 5. Tortuous and calcified right iliac artery with mild to moderate atherosclerotic vascular disease no evidence of vascular complication. Exam (Progress Note) - Constitutional Vitals: Period Temp Pulse Resp BP Sys/Call Pulse Ox Last 24 Hr 97.4 F-98.7 F 76-108 14-31 108-180/57-85 96-100 Exam: General: [Appears critically ill. ] [Remains intubated. ] [Appears comfortable. ] HEENT: [Normocephalic, atraumatic. Mucous membranes moist. No jaundice noted. Conjunctiva moist and clear, sclerae anicteric] Neck: No obvious JVD/HJR, no thyromegaly or lymphadenopathy noted. No carotid bruit appreciated Cardiac: [Regular rate and rhythm.] [No obvious murmur rub or gallop.] Lungs: [Rhonchi noted throughout. Symmetrical chest wall movements noted. Remains intubated. Abdomen: Soft, bowel sounds normoactive. Nontender and nondistended. No abdominal bruit or thrill noted. No masses noted. Musculoskeletal: No fluid collection. Decreased range of motion is noted. Extremities: No clubbing, cyanosis noted. [ Trace edema noted. ] Upper extremity pulses 2+. Lower extremity pulses 1+. Capillary refill less than 3 seconds. Skin: Multiple areas of ecchymosis. No skin breakdown appreciated. Neuro: Not following commands at this time. No essential tremors appreciated. Result/EKG - Labs CBC & BMP: 09/16/16 05:09 09/16/16 05:09 Lab Results: I have reviewed the past 24 hour labs Labs: Laboratory Results - last 24 hr 09/15/16 09/16/16 09/16/16 13:06 03:35 05:09 WBC 8.6 RBC 3.04 L Hgb 9.0 L Hct 27.7 L MCV 91.1 MCH 30 MCHC 32.5 RDW 17.5 H Plt Count 89 L MPV 12.4 H Neut % (Auto) 95.4 H Lymph % (Auto) 2.0 L [place] % (Auto) 1.9 Eos % (Auto) 0.0 Baso % (Auto) 0.1 Neut # (Auto) 8.2 H Lymph # (Auto) 0.2 L [place] # (Auto) 0.2 Eos # (Auto) 0.0 Baso # (Auto) 0.0 Total Counted 100 Immature Gran % 0.6 Nucleated RBC % 0.0 Immature Gran # 0.05 Segmented Neutrophils 90 H Band Neutrophils 3 Lymphocytes 3 L Monocytes 4 Nucleated RBCs # 0.00 Platelet Estimate Decreased Hypochromasia 1+ Microcytosis 1+ Ovalocytes Slight ABG pH 7.445 ABG pCO2 33.1 L ABG pO2 113.0 H ABG HCO3 23.7 ABG Total CO2 20.9 L ABG O2 Saturation 98.0 ABG Base Excess -0.8 FiO2 40.00 Sodium Potassium Chloride Carbon Dioxide Anion Gap BUN Creatinine GFR Calculation BUN/Creatinine Ratio Glucose Calculated Osmolality Calcium Phosphorus Magnesium Total Creatine Kinase 9642 H D Prealbumin 09/16/16 09/16/16 05:09 05:09 WBC RBC Hgb Hct MCV MCH MCHC RDW Plt Count MPV Neut % (Auto) Lymph % (Auto) [place] % (Auto) Eos % (Auto) Baso % (Auto) Neut # (Auto) Lymph # (Auto) [place] # (Auto) Eos # (Auto) Baso # (Auto) Total Counted Immature Gran % Nucleated RBC % Immature Gran # Segmented Neutrophils Band Neutrophils Lymphocytes Monocytes Nucleated RBCs # Platelet Estimate Hypochromasia Microcytosis Ovalocytes ABG pH ABG pCO2 ABG pO2 ABG HCO3 ABG Total CO2 ABG O2 Saturation ABG Base Excess FiO2 Sodium 146 H 148 H Potassium 4.2 4.3 Chloride 107 110 H Carbon Dioxide 23 22 Anion Gap 20.2 H 20.3 H BUN 110 H 105 H Creatinine 4.80 H 4.80 H GFR Calculation 9 9 BUN/Creatinine Ratio 22.00 H 21.00 H Glucose 155 H 151 H Calculated Osmolality 327.6 H 329.3 H Calcium 6.8 L 6.7 L Phosphorus 9.0 H Magnesium 2.9 H Total Creatine Kinase Prealbumin 13.9 L - EKG EKG results: interpreted by me EKG shows: sinus rhythm
--- NOTE | 2016-09-16 10:52 | XRay Report ---
History: Patient on ventilator Date: 09/16/2016 Study: Chest x-ray AP portable Comparison exam: 09/15/2016 The endotracheal tube tip is nearing the albina and could be safely withdrawn 2 cm. The nasogastric tube is well-positioned. There is continued cardiomegaly. The mediastinal contours are unchanged. There is some scattered patchy and hazy edema/infiltrate in the mid to lower lungs bilaterally. There is perhaps minimally improved aeration in the right perihilar region. There is no overt interval worsening. There is no pneumothorax or increasing pleural effusion. Osseous structures are unchanged. Impression: The endotracheal tube tip is nearing the albina and could be safely withdrawn 2 cm Mildly improved aeration right perihilar area. PROCEDURE INTERPRETED AT [facility] DEPARTMENT OF RADIOLOGY Final Report Signed by: Dr. Michelle Serrano
--- NOTE | 2016-09-16 14:56 | Physician Query Form ---
CLICK EDIT DOCUMENT TO SELECT QUERY ANSWER --> OK --> SIGN Ting Karimi RN Clinical Irrigation Installation Specialist W) [phone] (f) [phone] [email or web address] PROVIDERS: Make your selection(s) from the choices in EACH section by typing an "x" and enter comments in the comment section. Please use your independent medical judgment in providing your response. This request does not imply that any particular answer is desired or expected. CLINICAL INDICATORS: (Providers should not edit this section) Based on documentation of "Acute pneumonia" Temp of 101.0, Resp of 23. "went into cardiopulmonary arrest" Treated with IV Zithromax, IV Rocephin, and IV Solumedrol. Please clarify which, if any, of the following is the etiology of the above symptoms and treatment rendered: ( ) Sepsis due to a localized infection, please specify infection: (x ) Severe Sepsis (sepsis with acute organ failure) - Please specify type acute organ failure: renal failure, respiratory and cardiac ( x) Septic Shock (severe sepsis with hypotension) ( ) SIRS of noninfectious origin ( ) Sepsis due to a device, implant or graft, please specify: ( ) Localized infection only, without systemic illness, please specify infection : ( ) Bacteremia (abnormal lab finding only, does not indicate systemic illness) ( ) Other condition, please specify: ( ) Clinically unable to determine Criteria for Sepsis (SIRS due to an infection) should be based on 2 or more of the following being present: Temperature > 101F or < 96.8F WBC > 12,000 or < 4,000, or > 10% bands Tachycardia HR > 90 beats/minute Tachypnea RR > 20 breaths/minute or PaCO2 > 32mmHg Lactate level > 2.0 mmol/L (>4 is equivalent to severe sepsis) Altered Mental Status Mottling of skin or prolonged capillary refill Non-diabetic hyperglycemia (blood sugar >120 mg/dl) Other evidence of acute organ failure associated with sepsis ( severe sepsis) COMMENTS: PLEASE ALSO DOCUMENT RESPONSE IN PROGRESS NOTES AND/OR DISCHARGE SUMMARY Use of terms such as suspected, likely, or probable (associated with a specific diagnosis that is being evaluated, monitored, or treated as if it exists) are acceptable and can be restated in the discharge summary if not ruled out. MTDD
--- NOTE | 2016-09-16 15:00 | Physician Query Form ---
CLICK EDIT DOCUMENT TO SELECT QUERY ANSWER --> OK --> SIGN Ting Karimi RN Clinical Technology Intern W) [phone] (f) [phone] [email or web address] PROVIDERS: Make your selection(s) from the choices in EACH section by typing an "x" and enter comments in the comment section. Please use your independent medical judgment in providing your response. This request does not imply that any particular answer is desired or expected. CLINICAL INDICATORS: (Providers should not edit this section) Based on documentation of "CHF" History of CHF. Echo shows"Diastolic dysfunction. EF estimated at 15-20%" BNP of 992 Please provide further specificity regarding CHF. ACUITY: ( ) Acute (x ) Chronic ( ) Acute on Chronic ( ) Clinicallly unable to determine TYPE: ( ) Systolic (HFrEF - heart failure with reduced systolic function/EF) ( ) Diastolic (HFpEF - heart failure with preserved systolic function/EF) (x ) Combined Systolic/Diastolic ( ) Other, please specify: ( ) Clinically unable to determine ( ) The patient does NOT have CHF COMMENTS: PLEASE ALSO DOCUMENT RESPONSE IN PROGRESS NOTES AND/OR DISCHARGE SUMMARY Use of terms such as suspected, likely, or probable (associated with a specific diagnosis that is being evaluated, monitored, or treated as if it exists) are acceptable and can be restated in the discharge summary if not ruled out. MTDD
--- NOTE | 2016-09-16 15:05 | Physician Query Form ---
CLICK EDIT DOCUMENT TO SELECT QUERY ANSWER --> OK --> SIGN Ting Karimi RN Clinical Neurosurgical Nurse W) [phone] (f) [phone] [email or web address] PROVIDERS: Make your selection(s) from the choices in EACH section by typing an "x" and enter comments in the comment section. Please use your independent medical judgment in providing your response. This request does not imply that any particular answer is desired or expected. CLINICAL INDICATORS: (Providers should not edit this section) The below diagnosis was documented in the record, but is not consistently noted in subsequent documentation. Based on documentation of "Cardiopulmonary arrest" "History of cardiomyopathy with suspected NSTEMI" Troponin up to 71.9. Diagnosis: NSTEMI Please clarify the following: ( ) The above diagnosis was monitored, evaluated, and/or treated and is a confirmed diagnosis ( ) The above diagnosis was ruled out (x ) The above diagnosis is still a likely, suspected, probable diagnosis ( ) Other, please specify: ( ) Clinically unable to determine COMMENTS: Pt is clinically not able to do further investigative studies such as a cath to rule out HI at this time due to worsening kidney function. I recommend sending this query to cardiology who is also following PLEASE ALSO DOCUMENT RESPONSE IN PROGRESS NOTES AND/OR DISCHARGE SUMMARY Use of terms such as suspected, likely, or probable (associated with a specific diagnosis that is being evaluated, monitored, or treated as if it exists) are acceptable and can be restated in the discharge summary if not ruled out. MTDD
[2016-09-16] MEDS: PROPOFOL 1,000 MG/100 ML BOTTLE IV SCH (20:31)
[2016-09-16] MEDS: ATORVASTATIN 20 MG TABLET PO SCH (20:31)
[2016-09-16] MEDS ORDERED: AZITHROMYCIN 250 MG TABLET PO SCH (21:00)
--- NOTE | 2016-09-16 21:18 | Nephrology Progress Note ---
Nephrology - PN: Subj Interval history: He remains on the ventilator. He remains unresponsive. He is not requiring pressors Exam (PN)-Nephrology - Vital Signs Vital signs: Period Temp Pulse Resp BP Sys/Call Pulse Ox Last 24 Hr 97.4 F-98.7 F 69-108 16-31 108-180/57-86 96-99 Exam: Gen.: Not responsive, on ventilator ENT: Pupils equal round reactive to light. Neck: Supple. No JVD or bruit. Cardiovascular: Regular rate and rhythm. No murmur rub or gallop Lungs: Bilateral rhonchi right greater than left Abdomen: Soft. Nontender. Positive bowel sounds. No organomegaly Extremities: No edema - Lab 09/16/16 05:09 09/16/16 05:09 Most recent lab results ABG pH 7.445 (7.35-7.45) 09/16/16 03:35 ABG pCO2 33.1 MM HG (35-48) L 09/16/16 03:35 ABG pO2 113.0 MM HG (80-95) H 09/16/16 03:35 ABG HCO3 23.7 MMOL/L (20-26) 09/16/16 03:35 ABG O2 Saturation 98.0 % (95-100) 09/16/16 03:35 Calcium 6.7 MG/DL (8.5-10.1) L 09/16/16 05:09 Phosphorus 9.0 MG/DL (2.5-4.9) H 09/16/16 05:09 Magnesium 2.9 MG/DL (1.8-2.4) H 09/16/16 05:09 Assessment and Plan (1) ARF (acute renal failure) Status: Acute Assessment and plan: 81-year-old man with: * Pneumonia * Cardiopulmonary arrest. Continue ventilatory support * acute ID. * Cardiomyopathy. EF 15-20% * ARF. Creatinine is higher . CPK beginning to decrease Current Visit: Yes (2) Cardiopulmonary arrest Status: Acute Current Visit: Yes (3) History of cardiomyopathy Status: Acute Current Visit: Yes (4) Hypoxic encephalopathy Status: Acute Current Visit: Yes (5) Increase in troponins Status: Acute Current Visit: Yes (6) Pneumonia Status: Acute Current Visit: Yes (7) Respiratory failure Status: Acute Current Visit: Yes
[2016-09-16] MEDS: PANTOPRAZOLE 40 MG VIAL IV SCH (21:30)
[2016-09-17] MEDS: ACETYLCYSTEINE 20% 800 MG/4 ML VIAL RESP TX SCH ×3 (00:18→14:07)
[2016-09-17] MEDS: ALBUTEROL 2.5 MG/3 ML NEB RESP TX PRN (00:18)
[2016-09-17] MEDS: CARVEDILOL 3.125 MG TABLET PO SCH ×4 (00:20→18:42)
[2016-09-17] MEDS: PHENYLEPHRINE DRIP 40 MG/250 ML PREMIX IV SCH (00:21)
[2016-09-17] MEDS: methylPREDNISolone SOD SUC 125 MG/2 ML VIAL IV SCH ×3 (01:21→18:45)
[2016-09-17 05:18] LABS: Basophils % 0.1 % (0.0-0.8); Hematocrit 26.9 VOL% (42.0-52.0); Hemoglobin 8.7 GM/DL (14.0-18.0); Immature Granulocytes % 0.6 %; Immature Granulocytes Absolute 0.07 #; Lymphocytes # 0.2 10*3/uL (1.4-4.0); Lymphocytes % 1.6 % (21.2-54.2); Mean Corpuscular HGB Conc 32.3 GM/DL (32-36); Mean Corpuscular Hemoglobin 29 PG (27-34); Mean Platelet Volume 12.7 FL (9.6-12.0); Monocytes # 0.2 10*3/uL (0.11-0.8); Monocytes % 1.6 % (1.7-12.7); NRBC # 0.02 10*3/uL; Neutrophils # 10.7 10*3/uL (1.4-7.4); Neutrophils % 96.1 % (38.7-73.9); Red Blood Count 2.99 MC/CUMM (3.8-5.5); Red Cell Distribution Width 17.5 % (9.3-17.3)
[2016-09-17 05:19] LABS: Platelet Count 74 T/CUMM (130-400); White Blood Count 11.2 T/CUMM (4-12)
[2016-09-17 05:48] LABS: Calcium 6.5 MG/DL (8.5-10.1); Magnesium 3.1 MG/DL (1.8-2.4); Osmolality,Calculated 339.1 MOS/KG (273-304); Potassium 3.9 MMOL/L (3.5-5.1)
[2016-09-17 05:55] LABS: Hypochromasia 1+; Lymphocytes 1 % (20-55); Ovalocytes Slight; Platelet Estimate Decreased; Segmented Neutrophils 96 % (50-85); Total Cells Counted 100
[2016-09-17 05:56] LABS: Microcytosis 1+
[2016-09-17] MEDS: SODIUM CHLORIDE 23.4% CONC INJ 38.5 MEQ, SODIUM BICARB INJ 100 MEQ in STERILE WATER INJ... IV SCH ×3 (06:07→23:16)
[2016-09-17] MEDS: PIPERACILLIN/TAZOBACTAM 3,375 MG in SODIUM CHLORIDE 0.9% 100 ML IV SCH ×2 (06:07→16:47)
--- NOTE | 2016-09-17 07:42 | XRay Report ---
XR chest 1V portable Indication: On ventilator Comparison: Chest x-ray dated September 16, 2016 Technique: Single frontal view of the chest. Findings: Endotracheal tube tip projects approximately 1.3 cm above the albina. Continued cardiomegaly. Bilateral mid and lower lung opacification appears similar to minimally improved to prior examination. Visualized osseous and surrounding soft tissue structures appear grossly unchanged. Diffuse osteopenia. IMPRESSION: As above. PROCEDURE INTERPRETED AT [facility] DEPARTMENT OF RADIOLOGY Final Report Signed by: Dr Keyon Navarro
--- NOTE | 2016-09-17 07:42 | Pulmonology Progress Note ---
Pulmonary - PN: Subj Interval history: 81-year-old [place] male with cardiopulmonary arrest. As apparent hypoxic brain injury. Neurology following. He is on the ventilator. ABGs acceptable. Cannot wean until mental status changes. 09/16/2016 patient remains unresponsive. Does have pupillary reflexes. Severe hypoxic brain injury apparently. Continuing mechanical ventilatory support for now. 09/17/2016 patient unresponsive except to painful stimulation. Still has pupillary reflexes. Starting to do CPAP trials. Family needs information on neurologic prognosis. From pulmonary standpoint we will continue with mechanical ventilation and weaning trials for now. Exam (Progress Note) - Constitutional Vitals: Period Temp Pulse Resp BP Sys/Call Pulse Ox Last 24 Hr 97.4 F-98.7 F 69-96 16-28 121-167/57-86 96-99 Exam: Unresponsive, except he does flinch slightly with painful stimulus. Pupils small but reactive. Apparently has cataracts. Orotracheal tube in place. Neck is supple. Chest reveals some bibasilar rales otherwise clear. Heart normal rate rhythm no murmurs. Abdomen soft no masses. Extremities no clubbing cyanosis or edema. Results - Labs CBC & BMP: 09/17/16 04:58 09/17/16 04:58 Lab Results: I have reviewed the past 24 hour labs - Diagnostic Findings Procedure: Chest x-ray: image reviewed by me (Patchy right midlung infiltrate. ET tube good position. Little change from previous films.) Assessment and Plan (1) Respiratory failure Status: Acute Assessment and plan: ABGs look good. Will reduce FiO2 and assist control rate a little. 09/15/2016 ABGs acceptable on current settings. Mental status will tell us what to do weaning device. At present not ready for any weaning trials. ABGs look good with a PO2 111, PCO2 30, pH 7.41. We will keep at present settings. 09/16/2016 ABGs acceptable. Mental status does not allow weaning as yet. 09/17/2016 respiratory failure secondary to cardiac arrest with hypoxic brain injury. ABGs acceptable. Pending today. Tolerating weaning trials. Will be able to extubate until decision made about mental status. May require tracheostomy if long-term support is planned. Current Visit: Yes (2) Cardiopulmonary arrest Status: Acute Assessment and plan: Remains to be seen what his mental status will be like. Continuing support. History of cardiomyopathy and cardiac enzymes apparently myocardial infarction. 09/15/2016 apparent myocardial infarction with cardiac arrest and hypoxic brain injury. 09/16/2016 status post myocardial infarction with cardiac arrest. Has severe hypoxic brain injury. 09/17/2016 status post myocardial infarction with cardiac arrest and hypoxic brain injury. Defer to cardiology and neurology. Current Visit: Yes (3) Pneumonia Status: Acute Assessment and plan: Agree with broad-spectrum antibiotics. 09/15/2016 continuing broad-spectrum antibiotics. 09/16/2016 empiric antibiotics. Has gram-negative rods in sputum. Should be covered with Zosyn. 09/17/2016 on empiric antibiotics for gram-negative pneumonia. Does have patchy infiltrates on his lungs. May well have aspirated associated with his arrest. Current Visit: Yes (4) History of cardiomyopathy Status: Acute Assessment and plan: Need an echo to see current LV function. 09/15/2016 cardiology following. Has ejection fraction 15-20%. Moderate AR. LVH with diastolic dysfunction as well. 09/16/2016 severe cardiomyopathy which appears to be ischemic. 09/17/2016 again has severe cardiomyopathy. Prognosis poor from that alone. Current Visit: Yes (5) Increase in troponins Status: Acute Assessment and plan: Suggests a myocardial infarction. Patient did have a cardiac arrest with CPR. 09/15/2016 apparent myocardial infarction. 09/16/2016 acute myocardial infarction. Current Visit: Yes
--- NOTE | 2016-09-17 07:50 | Hospitalist Progress Note ---
Hospitalist: Subjective Interval history: HR drops to 40's at night intermittently. No fever. Tolerating tubefeeds. No fever. No BM recorded Exam - Constitutional Vitals: Period Temp Pulse Resp BP Sys/Call Pulse Ox Last 24 Hr 97.4 F-98.7 F 69-96 16-28 121-167/57-86 96-99 Exam: GEN: Intubated and sedated HEENT: Pupils equal and reactive, clear sclera, ETT in place NECK: trachea midline, No LAD or thyromegaly appreciated CV: RRR no M diminished heart tones LUNGS: diminished lung sounds, intermittently coarse bilaterally, nonlabored ABD: soft, hypoactive, distended, no HSM or masses appreciated though difficult to assess given body habitus EXT: Warm no C/C/E Neuro: moves extremities to deep tactile stimulation Results - Labs CBC & BMP: 09/17/16 04:58 09/17/16 04:58 - Impressions (1) Acute hypoxic respiratory failure likely due aspiration pneumonia due to GNR Status: Acute Assessment and plan: - Vent management per pulmonology - Cont IV antibiotics, bronchodilators, pulm toileting - Blood culture no growth to date. F/U Sputum culture -growing GNR - Serial labs Current Visit: Yes (2) S/P Cardiopulmonary arrest with shock possibly cardiogenic and septic but can not rule out obstructive at this time-shock now resolved Status: Acute Assessment and plan: - off neosynephrine - Continuing vent support. History of CHF and cardiac enzymes suggest myocardial infarction. 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 Cards following. No ACEi/ARB due to decreased elevated creatinine. Cards declines starting BB due to recent hypotension and recent bradycardia. Cards following. ? Dobutamine if BP drops again which will help with contractility and improve cardiac output. Current Visit: Yes (5) Acute renal failure suspect due to ATN due to poor perfusion/ hypotension with metabolic acidosis on suspected CKD ?stage 3- creatinine has plateau'd. Status: Acute Assessment and plan: - Holding statin due to elevated CPK and Flomax. CPK improving. Urine studies reviewed. Renal U/S shows chronic scarring/ increased echogenicity. No obstruction. Renal following - Lactic acid normal - Hold colchicine - Avoid nephrotoxic agents - Vasoactive agents as needed to improve cardiac output with goal MAP >/= 65. Consider dobutamine if needed to improve cardiac output if develops fluid overload - IVF Current Visit: Yes (6) Bradycardia - Resolved. Cards following. Holding BB at this time. (7) Anemia/ Thrombocytopenia- - DIC panel negative. HIT Antibody pending. LDH is elevated and haptoglobin was not low. Will recheck fibrinogen level. Serial labs. Hold Lovenox... (8) Acute encephalopathy possibly due to hypotension, hypoxia and infection - Neurology following. - CT head showed chronic ischemic changes and atrophy. - EEG showed generalized slowing suggesting moderate to severe encephalopathy, which could be secondary to postictal state, posthypoxic state, metabolic disorder, diffuse WORKFORCE MANAGER insult, or increased intracranial pressure. No epileptiform/seizure activity seen. - Hopefully will get more information re: neurological prognosis for neurology. DVT prophylaxis-SCDs. No anticoagulation due to worsening thrombocytopenia. GI prophylaxis- Protonix 31 minutes spent with this patient. D/W nurse. D/W daughter Alycia [phone] and all questions answered. Overall prognosis is guarded.
[2016-09-17 08:51] LABS: ABG Base Excess 4.5 MMOL/L (-2.5-2.5); ABG HCO3 28.5 MMOL/L (20-26); ABG Oxygen Saturation 98.6 % (95-100); ABG PCO2 33.5 MM HG (35-48); ABG PH 7.519 (7.35-7.45); ABG TCO2 25.1 MMOL/L (23-27); Allen Test Positive; Pt O2 Delivery Device Ventilator
[2016-09-17] MEDS: ASPIRIN EC 81 MG TABLET PO SCH (09:03)
[2016-09-17] MEDS: ALLOPURINOL 100 MG TABLET PO SCH (09:03)
[2016-09-17] MEDS: MULTIVITAMIN LIQUID (CENTRUM) 60 ML BOTTLE PER TUBE SCH (09:04)
[2016-09-17 11:03] LABS: INR 1.1; PT Patient Result 11.5 SECS; Partial Thromboplastin Time 28.9 SECS (0-40)
[2016-09-17 11:28] LABS: HIT Interpretation Negative (Negative)
--- NOTE | 2016-09-17 11:51 | Neurology Progress Note ---
Neurology - PN : Subjective Interval history: Pt is unchanged neurologically. Not waking up. No spontaneous movement seen. No movement seen on deep painful stimuli. Exam (Progress Note) - Constitutional Vitals: Period Temp Pulse Resp BP Sys/Call Pulse Ox Last 24 Hr 97.4 F-98.7 F 69-96 14-24 121-167/57-86 96-99 Exam: GENERAL: Patient is in no acute distress. NECK: Neck is supple. There is no JVD. No carotid bruits present. No thyroid masses. CVS: First and second heart sounds are normal. There is no S3 present. Regular rate and rhythm. RESPIRATORY: Lungs are clear to auscultation without any rales or rhonchi. ABDOMEN: Soft and non-tender. Bowel sounds are present. There is no hepatosplenomegaly. EXT: There is no palpable edema. Peripheral pulses are present. Skin: No rashes Central Nervous system: General: Unresponsive on vent Speech: None Comprehension: None Facial expressions: Normal Cranial Nerves: Pupils are sluggish but reactive. Doll's head eye movements are negative. No facial asymmetry seen. Motor: Bulk and Tone is normal. Strength cannot be assessed Sensory: Cannot be assessed Reflexes: 1+ and symmetrical Cerebellar function: Normal finger to nose and heel to [place] testing. Toes: Equivocal Gait: Cannot be assessed Results - Labs CBC & BMP: 09/17/16 04:58 09/17/16 04:58 Assessment and Plan (1) Hypoxic encephalopathy Status: Acute Assessment and plan: Hypoxic/anoxic encephalopathy secondary to cardiopulmonary arrest Continue supportive management Prognosis is poor. Consider DNR Current Visit: Yes
--- NOTE | 2016-09-17 11:58 | Cardiology Progress Note ---
Assessment and Plan - Time spent with patient Time spent with patient: Greater than 30 minutes (1) Cardiomyopathy Status: Acute Assessment and plan: SEE PLAN OF CARE LISTED BELOW Current Visit: Yes (2) Aortic regurgitation Status: Acute Assessment and plan: SEE PLAN OF CARE LISTED BELOW Current Visit: Yes (3) Cardiopulmonary arrest Status: Acute Assessment and plan: SEE PLAN OF CARE LISTED BELOW Current Visit: Yes (4) Pneumonia Status: Acute Assessment and plan: SEE PLAN OF CARE LISTED BELOW Current Visit: Yes (5) Increase in troponins Status: Acute Assessment and plan: SEE PLAN OF CARE LISTED BELOW Current Visit: Yes (6) Respiratory failure Status: Acute Current Visit: Yes (7) ARF (acute renal failure) Status: Acute Assessment and plan: SEE PLAN OF CARE LISTED BELOW Current Visit: Yes Cardiology - PN: Subj Interval history: REAL ESTATE EXECUTIVE ASSISTANT: DR. KHALIF QUICK Patient is being seen in the ICU. SUMMARY: Mr. Gale, 81ChM, has previously been followed by Dr. Quick. He was last seen in cardiology clinic September 24, 2014. Risk factors include: Advanced age, known (moderate) coronary artery disease, hypertension, dyslipidemia, PVD, sedentary lifestyle. Last cardiac catheterization June 25, 2014 - see below for complete report. Patient presented to ER the evening of September 13, 2016 for shortness of breath. While in the emergency room, patient did code. It is felt that he became hypoxic and possibly aspirated in addition to his pneumonia. He has been housed in our CCU since admission. SEPTEMBER 15, 2016: Sedation has been withheld and responding only to aggressive tactile stimuli. He has been noted to have episodes of posturing. Patient's troponin remained significantly elevated. Due to patient's multiple comorbidities, medical management is as he is not a candidate for invasive workup at this time. Lovenox was held last evening due to patient's thrombocytopenia. Platelets have minimally improved overnight. Patient is not requiring pressors. Liver enzymes, though extremely high, have slightly improved overnight. Unfortunately, kidney function has worsened today. Echocardiogram revealed EF 15-20%, moderate aortic regurgitation, PAP 25 mmHg + RAP. Would like to introduce a beta-yamel for blood pressure will not allow for such. No arrhythmias noted. Vital signs are stable. CT head revealed no acute intracranial process though chronic ischemic change and atrophy. I will further discuss with Dr. Sargent and await additional recommendations. SEPTEMBER 16, 2016: Little improvement has been noted overnight. Continues to be unresponsive. He remains thrombocytopenic with platelet count of 89 this morning. Vital signs otherwise are stable. Little to add. Prognosis is poor. SEPTEMBER 17, 2016: Patient remains critically ill, unresponsive. He is now off pressors. Last evening, Coreg 3.125 mg every 6 hours was introduced. Blood pressure did tolerate this well. However, he during the night it is reported he had 2 episodes of sinus bradycardia with heart rate in the 40s. There are no strips in [employer] to review. We will continue at this dose of beta- blockade given his cardiomyopathy. Creatinine is unchanged overnight at 4.8. Platelets down to 74. Troponin peaked at 71.9. Prognosis poor. ASSESSMENT/PLAN: 1. CARDIOPULMONARY ARREST - critically ill. Continue ventilatory support, off pressors at this time. 2. CAD, MODERATE - history of moderate CAD. See report below regarding most recent results of heart catheterization 3. ELEVATED CARDIAC BIOMARKERS S/P CODE - continue current plan of care. Due to the patient's multiple comorbidities, medical management will ensue until he stabilizes. At that time, he will need further imaging investigation including cardiac catheterization. 4. PNEUMONIA - currently being treated with steroids, antibiotics and pulmonary toilet. 5. THROMBOCYTOPENIA - platelets lower this morning. Lovenox has been held. Daily monitoring recommended. Continue low dose aspirin as able. 6. ALTERED MENTAL STATUS - possibly anoxic brain injury. CT head reveals chronic changes, nothing acute. Neurology following. 7. ACUTE RENAL FAILURE - Stage III. Continue with close monitoring. May be related to hypoxemic event. 8. CARDIOMYOPATHY - Etiology unknown, duration unknown but suspect related to recent events. Unable to tolerate CEDRIC (ARF). Initiated low-dose beta- yamel last evening. He has had 2 episodes of bradycardia (heart rate 40s) during the night. We will continue with low-dose beta yamel and monitor. 9. AORTIC REGURGITATION, MODERATE - continue current plan of care. 10. LIVER SHOCK - suspect elevated enzymes related to shock liver. Heart catheterization, performed by Dr. Khalif Quick, June 25, 2014: 1. Moderate CAD A. Right coronary artery with sequential 60%, 70% and 50% lesions 2. Right dominant coronary arteries 3. Ejection fraction 40% to 45%, although this was difficult to assess due to poor visualization of the left ventricle. 4. Mild to moderate aortic stenosis with a peak gradient of 35 mmHg, mean gradient of 16 mmHg. 5. Tortuous and calcified right iliac artery with mild to moderate atherosclerotic vascular disease no evidence of vascular complication. Exam (Progress Note) - Constitutional Vitals: Period Temp Pulse Resp BP Sys/Call Pulse Ox Last 24 Hr 97.4 F-98.7 F 69-96 14-24 121-167/57-86 96-99 Exam: General: [Appears critically ill. ] [Remains intubated. ] [Appears comfortable. ] HEENT: [Normocephalic, atraumatic. Mucous membranes moist. No jaundice noted. Conjunctiva moist and clear, sclerae anicteric] Neck: No obvious JVD/HJR, no thyromegaly or lymphadenopathy noted. No carotid bruit appreciated Cardiac: [Regular rate and rhythm.] [No obvious murmur rub or gallop.] Lungs: [Rhonchi noted throughout. Symmetrical chest wall movements noted. Remains intubated. Abdomen: Soft, bowel sounds normoactive. Nontender and nondistended. No abdominal bruit or thrill noted. No masses noted. Musculoskeletal: No fluid collection. Decreased range of motion is noted. Extremities: No clubbing, cyanosis noted. [ Trace edema noted. ] Upper extremity pulses 2+. Lower extremity pulses 1+. Capillary refill less than 3 seconds. Skin: Multiple areas of ecchymosis. No skin breakdown appreciated. Neuro: Not following commands at this time. No essential tremors appreciated. Result/EKG - Labs CBC & BMP: 09/17/16 04:58 09/17/16 04:58 Lab Results: I have reviewed the past 24 hour labs Labs: Laboratory Results - last 24 hr 09/14/16 09/17/16 09/17/16 14:16 04:58 04:58 WBC 11.2 D RBC 2.99 L Hgb 8.7 L Hct 26.9 L MCV 90.0 MCH 29 MCHC 32.3 RDW 17.5 H Plt Count 74 L MPV 12.7 H Neut % (Auto) 96.1 H Lymph % (Auto) 1.6 L [place] % (Auto) 1.6 L Eos % (Auto) 0.0 Baso % (Auto) 0.1 Neut # (Auto) 10.7 H Lymph # (Auto) 0.2 L [place] # (Auto) 0.2 Eos # (Auto) 0.0 Baso # (Auto) 0.0 Total Counted 100 Immature Gran % 0.6 Nucleated RBC % 0.2 Immature Gran # 0.07 Segmented Neutrophils 96 H Lymphocytes 1 L Monocytes 3 Nucleated RBCs # 0.02 Platelet Estimate Decreased Hypochromasia 1+ Microcytosis 1+ Ovalocytes Slight Morphology Comment INR PT Patient/Control Mix Fibrinogen Circ Anticoag PTT ABG pH ABG pCO2 ABG pO2 ABG HCO3 ABG Total CO2 ABG O2 Saturation ABG Base Excess FiO2 Sodium 149 H Potassium 3.9 Chloride 107 Carbon Dioxide 27 Anion Gap 18.9 H BUN 119 H D Creatinine 4.80 H GFR Calculation 9 BUN/Creatinine Ratio 24.00 H Glucose 204 H Calculated Osmolality 339.1 H Calcium 6.5 L Magnesium 3.1 H Hep-Induced Plt Ab Pretty < 0.075 Heparin-PF4 Ab Interp Negative Heparin-PF4 Ab Comment See comments 09/17/16 09/17/16 08:44 10:39 WBC RBC Hgb Hct MCV MCH MCHC RDW Plt Count MPV Neut % (Auto) Lymph % (Auto) [place] % (Auto) Eos % (Auto) Baso % (Auto) Neut # (Auto) Lymph # (Auto) [place] # (Auto) Eos # (Auto) Baso # (Auto) Total Counted Immature Gran % Nucleated RBC % Immature Gran # Segmented Neutrophils Lymphocytes Monocytes Nucleated RBCs # Platelet Estimate Hypochromasia Microcytosis Ovalocytes Morphology Comment INR 1.1 PT Patient/Control Mix 11.5 D Fibrinogen 366 Circ Anticoag PTT 28.9 D ABG pH 7.519 H ABG pCO2 33.5 L ABG pO2 116.0 H ABG HCO3 28.5 H ABG Total CO2 25.1 ABG O2 Saturation 98.6 ABG Base Excess 4.5 H FiO2 40.00 Sodium Potassium Chloride Carbon Dioxide Anion Gap BUN Creatinine GFR Calculation BUN/Creatinine Ratio Glucose Calculated Osmolality Calcium Magnesium Hep-Induced Plt Ab Pretty Heparin-PF4 Ab Interp Heparin-PF4 Ab Comment - Diagnostic Findings Procedure: Chest x-ray: report reviewed by me - EKG EKG results: interpreted by me EKG shows: sinus rhythm
--- NOTE | 2016-09-17 16:06 | Nephrology Progress Note ---
Nephrology - PN: Subj Interval history: He remains on the ventilator. He is responsive only to deep pain Exam (PN)-Nephrology - Vital Signs Vital signs: Period Temp Pulse Resp BP Sys/Call Pulse Ox Last 24 Hr 98.1 F-98.7 F 63-96 13-24 136-167/55-86 96-100 Exam: Gen.: Not responsive, on ventilator ENT: Pupils equal round reactive to light. Neck: Supple. No JVD or bruit. Cardiovascular: Regular rate and rhythm. 1 to 2/6 systolic murmur Lungs: Clear Abdomen: Soft. Nontender. Positive bowel sounds. No organomegaly Extremities: No edema - Lab 09/17/16 04:58 09/17/16 04:58 Most recent lab results ABG pH 7.519 (7.35-7.45) H 09/17/16 08:44 ABG pCO2 33.5 MM HG (35-48) L 09/17/16 08:44 ABG pO2 116.0 MM HG (80-95) H 09/17/16 08:44 ABG HCO3 28.5 MMOL/L (20-26) H 09/17/16 08:44 ABG O2 Saturation 98.6 % (95-100) 09/17/16 08:44 Calcium 6.5 MG/DL (8.5-10.1) L 09/17/16 04:58 Phosphorus 9.0 MG/DL (2.5-4.9) H 09/16/16 05:09 Magnesium 3.1 MG/DL (1.8-2.4) H 09/17/16 04:58 Assessment and Plan (1) ARF (acute renal failure) Status: Acute Assessment and plan: 81-year-old man with: * Pneumonia * Cardiopulmonary arrest. Continue ventilatory support * acute ID. * Cardiomyopathy. EF 15-20% * ARF. No improvement in renal function thus far. Continue supportive care Current Visit: Yes (2) Cardiopulmonary arrest Status: Acute Current Visit: Yes (3) History of cardiomyopathy Status: Acute Current Visit: Yes (4) Hypoxic encephalopathy Status: Acute Current Visit: Yes (5) Increase in troponins Status: Acute Current Visit: Yes (6) Pneumonia Status: Acute Current Visit: Yes (7) Respiratory failure Status: Acute Current Visit: Yes
[2016-09-17] MEDS: ATORVASTATIN 20 MG TABLET PO SCH (21:25)
[2016-09-17] MEDS: PANTOPRAZOLE 40 MG VIAL IV SCH (21:25)
[2016-09-17] MEDS: PROPOFOL 1,000 MG/100 ML BOTTLE IV SCH (21:26)
[2016-09-18] MEDS: CARVEDILOL 3.125 MG TABLET PO SCH ×5 (00:07→23:11)
[2016-09-18] MEDS: ACETYLCYSTEINE 20% 800 MG/4 ML VIAL RESP TX SCH ×4 (00:17→23:58)
[2016-09-18] MEDS: PHENYLEPHRINE DRIP 40 MG/250 ML PREMIX IV SCH (02:20)
[2016-09-18] MEDS: methylPREDNISolone SOD SUC 125 MG/2 ML VIAL IV SCH ×3 (02:20→17:38)
[2016-09-18 03:05] LABS: Basophils % 0.1 % (0.0-0.8); Hematocrit 26.8 VOL% (42.0-52.0); Hemoglobin 8.9 GM/DL (14.0-18.0); Immature Granulocytes % 0.9 %; Lymphocytes # 0.3 10*3/uL (1.4-4.0); Lymphocytes % 2.4 % (21.2-54.2); Mean Corpuscular HGB Conc 33.2 GM/DL (32-36); Mean Corpuscular Hemoglobin 30 PG (27-34); Mean Corpuscular Volume 91.2 FL (87-102); Mean Platelet Volume 12.7 FL (9.6-12.0); Monocytes # 0.3 10*3/uL (0.11-0.8); Monocytes % 3.2 % (1.7-12.7); Neutrophils # 9.9 10*3/uL (1.4-7.4); Neutrophils % 93.4 % (38.7-73.9); Platelet Count 77 T/CUMM (130-400); Red Blood Count 2.94 MC/CUMM (3.8-5.5); Red Cell Distribution Width 17.2 % (9.3-17.3); White Blood Count 10.6 T/CUMM (4-12)
[2016-09-18 03:15] LABS: ABG Base Excess 8.2 MMOL/L (-2.5-2.5); ABG Oxygen Saturation 97.3 % (95-100); ABG PCO2 38.2 MM HG (35-48); ABG PH 7.527 (7.35-7.45); ABG PO2 95.4 MM HG (80-95); Allen Test Positive; Pt O2 Delivery Device Ventilator
[2016-09-18 03:31] LABS: Calcium 6.6 MG/DL (8.5-10.1); Magnesium 3.2 MG/DL (1.8-2.4); Osmolality,Calculated 336.3 MOS/KG (273-304); Potassium 3.4 MMOL/L (3.5-5.1)
[2016-09-18] MEDS: PIPERACILLIN/TAZOBACTAM 3,375 MG in SODIUM CHLORIDE 0.9% 100 ML IV SCH ×2 (05:26→16:14)
[2016-09-18 05:56] LABS: Anisocytosis 1+; Lymphocytes 1 % (20-55); Myelocytes 1 %; Segmented Neutrophils 97 % (50-85); Total Cells Counted 100
[2016-09-18 05:57] LABS: Ovalocytes Few; Tear Drop Cells Few
[2016-09-18 05:58] LABS: Platelet Estimate Decreased
--- NOTE | 2016-09-18 07:35 | Hospitalist Progress Note ---
Hospitalist: Subjective Interval history: Pt has continued to have bradycardia and I gave Glucagon 8mg IV x 1 with good results but has trended back down to 50's intermittently. Still intubated on the vent. He is still sedated withdrawing only to deep tactile stimulation. He is not tolerating tubefeeds at this time and they are on hold. Exam - Constitutional Vitals: Period Temp Pulse Resp BP Sys/Call Pulse Ox Last 24 Hr 97.5 F-98.6 F 53-85 10-24 105-161/51-79 95-100 Exam: GEN: Intubated and sedated HEENT: Pupils equal and reactive, clear sclera, ETT in place NECK: trachea midline, No LAD or thyromegaly appreciated CV: RRR no M diminished heart tones LUNGS: diminished lung sounds, mostly clear bilaterally, nonlabored ABD: soft, hypoactive, distended, no HSM or masses appreciated though difficult to assess given body habitus EXT: Warm no C/C/E Neuro: moves extremities to deep tactile stimulation Results - Labs CBC & BMP: 09/18/16 02:40 09/18/16 02:40 - Impressions (1) Acute hypoxic respiratory failure likely due aspiration pneumonia Status: Acute Assessment and plan: - Vent management per pulmonology - Cont IV antibiotics, bronchodilators, pulm toileting - Blood culture no growth to date. Sputum culture gramstain showed GNR but culture only grew Denise - Serial labs Current Visit: Yes (2) S/P Cardiopulmonary arrest with shock possibly cardiogenic and septic but can not rule out obstructive at this time-shock now resolved Status: Acute Assessment and plan: - off neosynephrine - Continuing vent support. History of CHF and cardiac enzymes suggest myocardial infarction. 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 Cards following. No ACEi/ARB due to decreased elevated creatinine. Coreg DC'd due to bradycardia. Current Visit: Yes (5) Acute renal failure suspect due to ATN due to poor perfusion/ hypotension with metabolic acidosis on suspected CKD ?stage 3- creatinine has plateau'd at 4.6 and is not improving 4.3 today Status: Acute Assessment and plan: - Holding statin due to elevated CPK and Flomax. CPK improving. Urine studies reviewed. Renal U/S shows chronic scarring/ increased echogenicity. No obstruction. Renal following - Lactic acid normal - Hold colchicine - Avoid nephrotoxic agents - Vasoactive agents as needed to improve cardiac output with goal MAP >/= 65. Consider dobutamine if needed to improve cardiac output if develops fluid overload - IVF Current Visit: Yes (6) Bradycardia - Hold Coreg. Glucagon bolus given and unable to do drip due to not enough glucagon in house. I have asked the nurse to keep atropine at the bedside. (7) Anemia/ Thrombocytopenia- - DIC panel negative. HIT Antibody pending. LDH is elevated and haptoglobin was not low. Will recheck fibrinogen level. Serial labs. Holding Lovenox (8) Acute encephalopathy possibly due to hypotension, hypoxia and infection - Neurology following. - CT head showed chronic ischemic changes and atrophy. - EEG showed generalized slowing suggesting moderate to severe encephalopathy, which could be secondary to postictal state, posthypoxic state, metabolic disorder, diffuse FIRE EXTINGUISHER REPAIRER INSPECTOR insult, or increased intracranial pressure. No epileptiform/seizure activity seen. - Poor prognosis for neurological recovery per neurology. DVT prophylaxis-SCDs. No anticoagulation due to worsening thrombocytopenia. GI prophylaxis- Protonix 44 minutes spent with this patient. D/W nurse. D/W two daughters Alycia and other daughter and all questions answered. They are considering changing code status but waiting for other family to arrive later today. Will update me when decision made. Overall prognosis is guarded.
[2016-09-18] MEDS ORDERED: GLUCAGON 1 MG VIAL IV ONE (08:29)
[2016-09-18] MEDS ORDERED: GLUCAGON 1 MG VIAL ONE (08:29)
--- NOTE | 2016-09-18 08:41 | Pulmonology Progress Note ---
Pulmonary - PN: Subj Interval history: 81-year-old [place] male with cardiopulmonary arrest. As apparent hypoxic brain injury. Neurology following. He is on the ventilator. ABGs acceptable. Cannot wean until mental status changes. 09/16/2016 patient remains unresponsive. Does have pupillary reflexes. Severe hypoxic brain injury apparently. Continuing mechanical ventilatory support for now. 09/17/2016 patient unresponsive except to painful stimulation. Still has pupillary reflexes. Starting to do CPAP trials. Family needs information on neurologic prognosis. From pulmonary standpoint we will continue with mechanical ventilation and weaning trials for now. 09/18/16 patient remains unresponsive. He does have some spontaneous respirations and moves about a little. He has had some episodes of bradycardia. Coreg has been stopped. Exam (Progress Note) - Constitutional Vitals: Period Temp Pulse Resp BP Sys/Call Pulse Ox Last 24 Hr 97.5 F-98.6 F 53-85 10-24 105-161/50-83 95-100 Exam: Unresponsive, except he does flinch slightly with painful stimulus. Pupils small but reactive. Apparently has cataracts. Orotracheal tube in place. Neck is supple. Chest reveals some bibasilar rales otherwise clear. Heart normal rate rhythm no murmurs. Abdomen soft no masses. Extremities no clubbing cyanosis or edema. Little change from yesterday. Results - Labs CBC & BMP: 09/18/16 02:40 09/18/16 02:40 Lab Results: I have reviewed the past 24 hour labs - Diagnostic Findings Procedure: Chest x-ray: image reviewed by me (ET tube good position. Mild right basilar infiltrate small right pleural effusion.) Assessment and Plan (1) Respiratory failure Status: Acute Assessment and plan: ABGs look good. Will reduce FiO2 and assist control rate a little. 09/15/2016 ABGs acceptable on current settings. Mental status will tell us what to do weaning device. At present not ready for any weaning trials. ABGs look good with a PO2 111, PCO2 30, pH 7.41. We will keep at present settings. 09/16/2016 ABGs acceptable. Mental status does not allow weaning as yet. 09/17/2016 respiratory failure secondary to cardiac arrest with hypoxic brain injury. ABGs acceptable. Pending today. Tolerating weaning trials. Will be able to extubate until decision made about mental status. May require tracheostomy if long-term support is planned. 09/18/16 patient is making progress with CPAP. Would not be able to defend his airway if extubated at present. Await further neurologic evaluation. If long- term support is required, tracheostomy would be indicated next week. Current Visit: Yes (2) Cardiopulmonary arrest Status: Acute Assessment and plan: Remains to be seen what his mental status will be like. Continuing support. History of cardiomyopathy and cardiac enzymes apparently myocardial infarction. 09/15/2016 apparent myocardial infarction with cardiac arrest and hypoxic brain injury. 09/16/2016 status post myocardial infarction with cardiac arrest. Has severe hypoxic brain injury. 09/17/2016 status post myocardial infarction with cardiac arrest and hypoxic brain injury. Defer to cardiology and neurology. 09/18/2016 hypoxic brain injury. No change in neurologic status. Current Visit: Yes (3) Pneumonia Status: Acute Assessment and plan: Agree with broad-spectrum antibiotics. 09/15/2016 continuing broad-spectrum antibiotics. 09/16/2016 empiric antibiotics. Has gram-negative rods in sputum. Should be covered with Zosyn. 09/17/2016 on empiric antibiotics for gram-negative pneumonia. Does have patchy infiltrates on his lungs. May well have aspirated associated with his arrest. 09/18/2016 empiric antibiotics. Cultures have been negative. Does have pulmonary infiltrate. Likely had aspiration associated with his cardiac arrest and resuscitation. Current Visit: Yes (4) History of cardiomyopathy Status: Acute Assessment and plan: Need an echo to see current LV function. 09/15/2016 cardiology following. Has ejection fraction 15-20%. Moderate AR. LVH with diastolic dysfunction as well. 09/16/2016 severe cardiomyopathy which appears to be ischemic. 09/17/2016 again has severe cardiomyopathy. Prognosis poor from that alone. 09/18/2016 underlying severe cardiomyopathy post myocardial infarction. Poor prognosis. Current Visit: Yes (5) Increase in troponins Status: Acute Assessment and plan: Suggests a myocardial infarction. Patient did have a cardiac arrest with CPR. 09/15/2016 apparent myocardial infarction. 09/16/2016 acute myocardial infarction. Current Visit: Yes
--- NOTE | 2016-09-18 09:07 | Cardiology Progress Note ---
Assessment and Plan - Time spent with patient Time spent with patient: Greater than 30 minutes (1) Cardiomyopathy Status: Acute Assessment and plan: SEE PLAN OF CARE LISTED BELOW Current Visit: Yes (2) Aortic regurgitation Status: Acute Assessment and plan: SEE PLAN OF CARE LISTED BELOW Current Visit: Yes (3) Cardiopulmonary arrest Status: Acute Assessment and plan: SEE PLAN OF CARE LISTED BELOW Current Visit: Yes (4) Pneumonia Status: Acute Assessment and plan: SEE PLAN OF CARE LISTED BELOW Current Visit: Yes (5) Increase in troponins Status: Acute Assessment and plan: SEE PLAN OF CARE LISTED BELOW Current Visit: Yes (6) Respiratory failure Status: Acute Current Visit: Yes (7) ARF (acute renal failure) Status: Acute Assessment and plan: SEE PLAN OF CARE LISTED BELOW Current Visit: Yes Cardiology - PN: Subj Interval history: CHILD PSYCHOLOGIST: DR. KHALIF QUICK Patient is being seen in the ICU. SUMMARY: Mr. Gale, 81ChM, has previously been followed by Dr. Quick. He was last seen in cardiology clinic September 24, 2014. Risk factors include: Advanced age, known (moderate) coronary artery disease, hypertension, dyslipidemia, PVD, sedentary lifestyle. Last cardiac catheterization June 25, 2014 - see below for complete report. Patient presented to ER the evening of September 13, 2016 for shortness of breath. While in the emergency room, patient did code. It is felt that he became hypoxic and possibly aspirated in addition to his pneumonia. He has been housed in our CCU since admission. SEPTEMBER 15, 2016: Sedation has been withheld and responding only to aggressive tactile stimuli. He has been noted to have episodes of posturing. Patient's troponin remained significantly elevated. Due to patient's multiple comorbidities, medical management is as he is not a candidate for invasive workup at this time. Lovenox was held last evening due to patient's thrombocytopenia. Platelets have minimally improved overnight. Patient is not requiring pressors. Liver enzymes, though extremely high, have slightly improved overnight. Unfortunately, kidney function has worsened today. Echocardiogram revealed EF 15-20%, moderate aortic regurgitation, PAP 25 mmHg + RAP. Would like to introduce a beta-yamel for blood pressure will not allow for such. No arrhythmias noted. Vital signs are stable. CT head revealed no acute intracranial process though chronic ischemic change and atrophy. I will further discuss with Dr. Sargent and await additional recommendations. SEPTEMBER 16, 2016: Little improvement has been noted overnight. Continues to be unresponsive. He remains thrombocytopenic with platelet count of 89 this morning. Vital signs otherwise are stable. Little to add. Prognosis is poor. SEPTEMBER 17, 2016: Patient remains critically ill, unresponsive. He is now off pressors. Last evening, Coreg 3.125 mg every 6 hours was introduced. Blood pressure did tolerate this well. However, he during the night it is reported he had 2 episodes of sinus bradycardia with heart rate in the 40s. There are no strips in [place] to review. We will continue at this dose of beta- blockade given his cardiomyopathy. Creatinine is unchanged overnight at 4.8. Platelets down to 74. Troponin peaked at 71.9. Prognosis poor. SEPTEMBER 18, 2016: Patient is unresponsive. There has been no improvement. In fact , during the night, had continued episodes of bradycardia with rates in the 40s. Patient has not had his beta-yamel in greater than 24 hours. I will go ahead and stop it at this time. Continue to monitor labs. Will further discuss with Dr. Sargent and await additional recommendations. ASSESSMENT/PLAN: 1. CARDIOPULMONARY ARREST - critically ill. Continue ventilatory support, off pressors at this time. 2. CAD, MODERATE - history of moderate CAD. See report below regarding most recent results of heart catheterization 3. ELEVATED CARDIAC BIOMARKERS S/P CODE - continue current plan of care. Due to the patient's multiple comorbidities, medical management will ensue until he stabilizes. At that time, he will need further imaging investigation including cardiac catheterization. 4. PNEUMONIA - currently being treated with steroids, antibiotics and pulmonary toilet. 5. THROMBOCYTOPENIA - platelets lower this morning. Lovenox has been held. Daily monitoring recommended. Continue low dose aspirin as able. 6. ALTERED MENTAL STATUS - possibly anoxic brain injury. CT head reveals chronic changes, nothing acute. Neurology following. 7. ACUTE RENAL FAILURE - Stage III. Continue with close monitoring. May be related to hypoxemic event. 8. CARDIOMYOPATHY - Etiology unknown, duration unknown but suspect related to recent events. Unable to tolerate CEDRIC (ARF). Initiated low-dose beta- yamel last evening. He has had 2 episodes of bradycardia (heart rate 40s) during the night. We will continue with low-dose beta yamel and monitor. 9. AORTIC REGURGITATION, MODERATE - continue current plan of care. 10. LIVER SHOCK - suspect elevated enzymes related to shock liver. Heart catheterization, performed by Dr. Khalif Quick, June 25, 2014: 1. Moderate CAD A. Right coronary artery with sequential 60%, 70% and 50% lesions 2. Right dominant coronary arteries 3. Ejection fraction 40% to 45%, although this was difficult to assess due to poor visualization of the left ventricle. 4. Mild to moderate aortic stenosis with a peak gradient of 35 mmHg, mean gradient of 16 mmHg. 5. Tortuous and calcified right iliac artery with mild to moderate atherosclerotic vascular disease no evidence of vascular complication. Exam (Progress Note) - Constitutional Vitals: Period Temp Pulse Resp BP Sys/Call Pulse Ox Last 24 Hr 97.5 F-98.6 F 53-85 10-24 105-161/50-83 95-100 Exam: General: [Appears critically ill. ] [Remains intubated. ] [Appears comfortable. ] HEENT: [Normocephalic, atraumatic. Mucous membranes moist. No jaundice noted. Conjunctiva moist and clear, sclerae anicteric] Neck: No obvious JVD/HJR, no thyromegaly or lymphadenopathy noted. No carotid bruit appreciated Cardiac: [Regular rate and rhythm.] [No obvious murmur rub or gallop.] Lungs: [Rhonchi noted throughout. Symmetrical chest wall movements noted. Remains intubated. Abdomen: Soft, bowel sounds normoactive. Nontender and nondistended. No abdominal bruit or thrill noted. No masses noted. Musculoskeletal: No fluid collection. Decreased range of motion is noted. Extremities: No clubbing, cyanosis noted. [ Trace edema noted. ] Upper extremity pulses 2+. Lower extremity pulses 1+. Capillary refill less than 3 seconds. Skin: Multiple areas of ecchymosis. No skin breakdown appreciated. Neuro: Not following commands at this time. No essential tremors appreciated. Result/EKG - Labs CBC & BMP: 09/18/16 02:40 09/18/16 02:40 Lab Results: I have reviewed the past 24 hour labs Labs: Laboratory Results - last 24 hr 09/14/16 09/17/16 09/18/16 14:16 10:39 02:40 WBC 10.6 RBC 2.94 L Hgb 8.9 L Hct 26.8 L MCV 91.2 MCH 30 MCHC 33.2 RDW 17.2 Plt Count 77 L MPV 12.7 H Neut % (Auto) 93.4 H Lymph % (Auto) 2.4 L Schleicher % (Auto) 3.2 Eos % (Auto) 0.0 Baso % (Auto) 0.1 Neut # (Auto) 9.9 H Lymph # (Auto) 0.3 L Schleicher # (Auto) 0.3 Eos # (Auto) 0.0 Baso # (Auto) 0.0 Total Counted 100 Immature Gran % 0.9 Nucleated RBC % 0.0 Immature Gran # 0.10 Segmented Neutrophils 97 H Lymphocytes 1 L Monocytes 1 L Myelocytes 1 Nucleated RBCs # 0.00 Platelet Estimate Decreased Anisocytosis 1+ Tear Drop Cells Few Ovalocytes Few INR 1.1 PT Patient/Control Mix 11.5 D Fibrinogen 366 Circ Anticoag PTT 28.9 D ABG pH ABG pCO2 ABG pO2 ABG HCO3 ABG Total CO2 ABG O2 Saturation ABG Base Excess FiO2 Sodium Potassium Chloride Carbon Dioxide Anion Gap BUN Creatinine GFR Calculation BUN/Creatinine Ratio Glucose Calculated Osmolality Calcium Magnesium Hep-Induced Plt Ab Pretty < 0.075 Heparin-PF4 Ab Interp Negative Heparin-PF4 Ab Comment See comments 09/18/16 09/18/16 02:40 03:10 WBC RBC Hgb Hct MCV MCH MCHC RDW Plt Count MPV Neut % (Auto) Lymph % (Auto) Schleicher % (Auto) Eos % (Auto) Baso % (Auto) Neut # (Auto) Lymph # (Auto) Schleicher # (Auto) Eos # (Auto) Baso # (Auto) Total Counted Immature Gran % Nucleated RBC % Immature Gran # Segmented Neutrophils Lymphocytes Monocytes Myelocytes Nucleated RBCs # Platelet Estimate Anisocytosis Tear Drop Cells Ovalocytes INR PT Patient/Control Mix Fibrinogen Circ Anticoag PTT ABG pH 7.527 H ABG pCO2 38.2 ABG pO2 95.4 H ABG HCO3 32.0 H ABG Total CO2 29.0 H ABG O2 Saturation 97.3 ABG Base Excess 8.2 H FiO2 40.00 Sodium 148 H Potassium 3.4 L Chloride 104 Carbon Dioxide 32 Anion Gap 15.4 H BUN 117 H Creatinine 4.30 H GFR Calculation 11 BUN/Creatinine Ratio 27.00 H Glucose 213 H Calculated Osmolality 336.3 H Calcium 6.6 L Magnesium 3.2 H Hep-Induced Plt Ab Pretty Heparin-PF4 Ab Interp Heparin-PF4 Ab Comment - Diagnostic Findings Procedure: Chest x-ray: report reviewed by me - EKG EKG results: interpreted by me EKG shows: bradycardia, sinus rhythm
[2016-09-18] MEDS: ASPIRIN EC 81 MG TABLET PO SCH (09:23)
[2016-09-18] MEDS: ALLOPURINOL 100 MG TABLET PO SCH (09:23)
[2016-09-18] MEDS: MULTIVITAMIN LIQUID (CENTRUM) 60 ML BOTTLE PER TUBE SCH (09:24)
[2016-09-18] MEDS ORDERED: GLUCAGON 1 MG VIAL IM PRN (09:40)
[2016-09-18] MEDS ORDERED: DEXTROSE 50% 25 GM/50 ML VIAL IV PRN (09:40)
[2016-09-18] MEDS ORDERED: GLUCAGON IV SCH (10:00)
[2016-09-18] MEDS ORDERED: DEXTROSE 5% IV SCH (10:00)
--- NOTE | 2016-09-18 10:49 | XRay Report ---
History is ventilator management Comparison 09/17/2016 The heart is enlarged. ET tube tip is present at T5-T6, 2 cm above the albina There remains mild bilateral reticular pulmonary opacities with additional mild patchy and hazy opacities more pronounced in the right lung base. There has been mixed interval change with mild improvement in the diffuse opacities with slight increasing hazy opacities the right lung base. There is mild improved aeration in the left lung base. Impression: Mixed interval change described above PROCEDURE INTERPRETED AT [facility] DEPARTMENT OF RADIOLOGY Final Report Signed by: Dr. Carmen Olivo
[2016-09-18] MEDS: INSULIN REGULAR 100 UNIT/ML SUBCUT SCH ×5 (11:52→23:20)
--- NOTE | 2016-09-18 12:09 | XRay Report ---
History is feeding intolerance Mild air present primarily in the colon. No small bowel dilatation or organomegaly seen There is diffuse demineralization with vascular calcifications present Impression: Nonspecific bowel gas pattern PROCEDURE INTERPRETED AT [facility] DEPARTMENT OF RADIOLOGY Final Report Signed by: Dr. Carmen Olivo
--- NOTE | 2016-09-18 12:41 | Nephrology Progress Note ---
Nephrology - PN: Subj Interval history: Patient is intubated and sedate. Physical exam general the patient is chronically ill-appearing, he is unresponsive, heart is regular rate and rhythm, he has trace lower extremity edema, lungs are clear to auscultation anteriorly, abdomen is soft with positive bowel sounds Assessment/plan 1. Acute renal failure-patient's urine output is acceptable his creatinine is stable around 4 mg/dL 2. Cardiac arrest 3. Anemia-patient's hematocrits 27% 4. Respiratory failure-continue vent support Exam (PN)-Nephrology - Vital Signs Vital signs: Period Temp Pulse Resp BP Sys/Call Pulse Ox Last 24 Hr 97.5 F-98.5 F 53-85 10-24 105-161/45-83 94-100 - Lab 09/18/16 02:40 09/18/16 02:40 Most recent lab results ABG pH 7.527 (7.35-7.45) H 09/18/16 03:10 ABG pCO2 38.2 MM HG (35-48) 09/18/16 03:10 ABG pO2 95.4 MM HG (80-95) H 09/18/16 03:10 ABG HCO3 32.0 MMOL/L (20-26) H 09/18/16 03:10 ABG O2 Saturation 97.3 % (95-100) 09/18/16 03:10 Calcium 6.6 MG/DL (8.5-10.1) L 09/18/16 02:40 Phosphorus 9.0 MG/DL (2.5-4.9) H 09/16/16 05:09 Magnesium 3.2 MG/DL (1.8-2.4) H 09/18/16 02:40
[2016-09-18] MEDS: SODIUM CHLORIDE 23.4% CONC INJ 38.5 MEQ, SODIUM BICARB INJ 100 MEQ in STERILE WATER INJ... IV SCH (13:20)
[2016-09-18] MEDS: ATORVASTATIN 20 MG TABLET PO SCH (20:35)
[2016-09-18] MEDS: PANTOPRAZOLE 40 MG VIAL IV SCH (22:07)
[2016-09-18] MEDS: PROPOFOL 1,000 MG/100 ML BOTTLE IV SCH (22:56)
[2016-09-19] MEDS: PHENYLEPHRINE DRIP 40 MG/250 ML PREMIX IV SCH (00:22)
[2016-09-19] MEDS: methylPREDNISolone SOD SUC 125 MG/2 ML VIAL IV SCH ×3 (02:19→19:33)
[2016-09-19] MEDS: SODIUM CHLORIDE 23.4% CONC INJ 38.5 MEQ, SODIUM BICARB INJ 100 MEQ in STERILE WATER INJ... IV SCH (03:09)
[2016-09-19 03:10] LABS: Hemoglobin 8.4 GM/DL (14.0-18.0); Immature Granulocytes Absolute 0.08 #; Lymphocytes # 0.2 10*3/uL (1.4-4.0); Lymphocytes % 1.9 % (21.2-54.2); Mean Corpuscular HGB Conc 32.3 GM/DL (32-36); Mean Corpuscular Hemoglobin 30 PG (27-34); Mean Corpuscular Volume 91.5 FL (87-102); Monocytes # 0.4 10*3/uL (0.11-0.8); Monocytes % 4.5 % (1.7-12.7); Neutrophils # 7.3 10*3/uL (1.4-7.4); Neutrophils % 92.6 % (38.7-73.9); Platelet Count 73 T/CUMM (130-400); Red Blood Count 2.84 MC/CUMM (3.8-5.5); Red Cell Distribution Width 16.7 % (9.3-17.3); White Blood Count 7.9 T/CUMM (4-12)
[2016-09-19 03:38] LABS: Calcium 6.2 MG/DL (8.5-10.1); Magnesium 3.2 MG/DL (1.8-2.4); Osmolality,Calculated 341.7 MOS/KG (273-304); Potassium 2.9 MMOL/L (3.5-5.1)
[2016-09-19 04:14] LABS: ABG HCO3 35.8 MMOL/L (20-26); ABG Oxygen Saturation 96.2 % (95-100); ABG PCO2 38.3 MM HG (35-48); ABG PH 7.588 (7.35-7.45); ABG PO2 85.5 MM HG (80-95); ABG TCO2 36.9 MMOL/L (23-27); Allen Test Positive; Pt O2 Delivery Device Ventilator
[2016-09-19 04:50] LABS: Anisocytosis 1+; Lymphocytes 3 % (20-55); Platelet Estimate Decreased; Segmented Neutrophils 92 % (50-85); Total Cells Counted 100
[2016-09-19] MEDS: CARVEDILOL 3.125 MG TABLET PO SCH (05:08)
[2016-09-19] MEDS: INSULIN REGULAR 100 UNIT/ML SUBCUT SCH ×5 (05:16→20:18)
[2016-09-19] MEDS: PIPERACILLIN/TAZOBACTAM 3,375 MG in SODIUM CHLORIDE 0.9% 100 ML IV SCH ×2 (05:16→19:34)
--- NOTE | 2016-09-19 07:54 | Hospitalist Progress Note ---
Hospitalist: Subjective Interval history: Family decided on DNR status. HR a little more stable today in 50-60's. No atropine required. Still sedated. No fever. Exam - Constitutional Vitals: Period Temp Pulse Resp BP Sys/Call Pulse Ox Last 24 Hr 97.7 F-98.1 F 53-85 12-25 116-172/45-84 93-100 Exam: GEN: Intubated and sedated HEENT: Pupils equal and reactive, clear sclera, ETT in place NECK: trachea midline, No LAD or thyromegaly appreciated CV: RRR no M diminished heart tones LUNGS: diminished lung sounds, mostly clear bilaterally, nonlabored ABD: soft, hypoactive, distended, no HSM or masses appreciated though difficult to assess given body habitus EXT: Warm no C/C/E Neuro: moves extremities to deep tactile stimulation Results - Labs CBC & BMP: 09/19/16 02:17 09/19/16 02:17 - Impressions (1) Acute hypoxic respiratory failure likely due aspiration pneumonia Status: Acute Assessment and plan: - Vent management per pulmonology - Cont IV antibiotics, bronchodilators, pulm toileting - Blood culture no growth to date. Sputum culture gramstain showed GNR but culture only grew Denise - Serial labs Current Visit: Yes (2) S/P Cardiopulmonary arrest with shock possibly cardiogenic and septic but can not rule out obstructive at this time-shock now resolved Status: Acute Assessment and plan: - off neosynephrine - Continuing vent support. History of CHF and cardiac enzymes suggest myocardial infarction. 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 Cards following. No ACEi/ARB due to decreased elevated creatinine. Coreg DC'd due to bradycardia. Current Visit: Yes (5) Acute renal failure suspect due to ATN due to poor perfusion/ hypotension with metabolic acidosis on suspected CKD ?stage 3- creatinine has plateau'd at 4.6 and is now improving 3.6 today. Now with hypernatremia Status: Acute Assessment and plan: - BUN is elevated but has been started on Steroids. - Was holding statin due to elevated CPK and Flomax. CPK was improving. Statin has been restarted. Recheck CPK level. Urine studies reviewed. Renal U/S shows chronic scarring/ increased echogenicity. No obstruction. Renal following - Lactic acid normal - Hold colchicine - Avoid nephrotoxic agents - Off Vasoactive agents now now. Available as needed to improve cardiac output with goal MAP >/= 65. Consider dobutamine if needed to improve cardiac output if develops fluid overload - IVF (on D5W). Will ask dietary to increase free water replacement Current Visit: Yes (6) Bradycardia - Holding Coreg. Glucagon bolus given and unable to do drip due to not enough glucagon in house. I have asked the nurse to keep atropine at the bedside. (7) Anemia/ Thrombocytopenia- - DIC panel negative. HIT Antibody pending. LDH is elevated and haptoglobin was not low. Will recheck fibrinogen level, haptoglobin, LDH. Serial labs. Holding Lovenox (8) Acute encephalopathy possibly due to hypotension, hypoxia and infection - Neurology following. - CT head showed chronic ischemic changes and atrophy. - EEG showed generalized slowing suggesting moderate to severe encephalopathy, which could be secondary to postictal state, posthypoxic state, metabolic disorder, diffuse [employer] insult, or increased intracranial pressure. No epileptiform/seizure activity seen. - Poor prognosis for neurological recovery per neurology. DVT prophylaxis-SCDs. No anticoagulation due to worsening thrombocytopenia. GI prophylaxis- Protonix 35 minutes spent with this patient. D/W nurse. Reportedly, family has decided to change code status to DNR. I will be away several days. One of my associates will follow in my absence. Overall prognosis is guarded.
[2016-09-19] MEDS: ACETYLCYSTEINE 20% 800 MG/4 ML VIAL RESP TX SCH ×3 (07:57→23:49)
--- NOTE | 2016-09-19 08:01 | Pulmonology Progress Note ---
Pulmonary - PN: Subj Interval history: 81-year-old Hollis male with cardiopulmonary arrest. As apparent hypoxic brain injury. Neurology following. He is on the ventilator. ABGs acceptable. Cannot wean until mental status changes. 09/16/2016 patient remains unresponsive. Does have pupillary reflexes. Severe hypoxic brain injury apparently. Continuing mechanical ventilatory support for now. 09/17/2016 patient unresponsive except to painful stimulation. Still has pupillary reflexes. Starting to do CPAP trials. Family needs information on neurologic prognosis. From pulmonary standpoint we will continue with mechanical ventilation and weaning trials for now. 09/18/16 patient remains unresponsive. He does have some spontaneous respirations and moves about a little. He has had some episodes of bradycardia. Coreg has been stopped. 09/19/2016 again patient unresponsive. He has some spontaneous movement of his eyes and chin. Does not respond to anything did not do CPAP yesterday as his blood pressures were unstable. Will try to resume them again today. Exam (Progress Note) - Constitutional Vitals: Period Temp Pulse Resp BP Sys/Call Pulse Ox Last 24 Hr 97.7 F-98.1 F 53-85 12-25 116-172/45-84 93-100 Exam: Unresponsive, except he does flinch slightly with painful stimulus. Pupils small but reactive. Apparently has cataracts. Orotracheal tube in place. Neck is supple. Chest reveals some bibasilar rales otherwise clear. Heart normal rate rhythm no murmurs. Abdomen soft no masses. Extremities no clubbing cyanosis or edema. Little change from yesterday. Results - Labs CBC & BMP: 09/19/16 02:17 09/19/16 02:17 Lab Results: I have reviewed the past 24 hour labs - Diagnostic Findings Procedure: Chest x-ray: image reviewed by me (Minimal right basilar infiltrate. ET tube in good position) Assessment and Plan (1) Respiratory failure Status: Acute Assessment and plan: ABGs look good. Will reduce FiO2 and assist control rate a little. 09/15/2016 ABGs acceptable on current settings. Mental status will tell us what to do weaning device. At present not ready for any weaning trials. ABGs look good with a PO2 111, PCO2 30, pH 7.41. We will keep at present settings. 09/16/2016 ABGs acceptable. Mental status does not allow weaning as yet. 09/17/2016 respiratory failure secondary to cardiac arrest with hypoxic brain injury. ABGs acceptable. Pending today. Tolerating weaning trials. Will be able to extubate until decision made about mental status. May require tracheostomy if long-term support is planned. 09/18/16 patient is making progress with CPAP. Would not be able to defend his airway if extubated at present. Await further neurologic evaluation. If long- term support is required, tracheostomy would be indicated next week. 09/19/2016 unable to do CPAP yesterday. Will resume them today. Current Visit: Yes (2) Cardiopulmonary arrest Status: Acute Assessment and plan: Remains to be seen what his mental status will be like. Continuing support. History of cardiomyopathy and cardiac enzymes apparently myocardial infarction. 09/15/2016 apparent myocardial infarction with cardiac arrest and hypoxic brain injury. 09/16/2016 status post myocardial infarction with cardiac arrest. Has severe hypoxic brain injury. 09/17/2016 status post myocardial infarction with cardiac arrest and hypoxic brain injury. Defer to cardiology and neurology. 09/18/2016 hypoxic brain injury. No change in neurologic status. 09/19/2016 patient is not waking up. Current Visit: Yes (3) Pneumonia Status: Acute Assessment and plan: Agree with broad-spectrum antibiotics. 09/15/2016 continuing broad-spectrum antibiotics. 09/16/2016 empiric antibiotics. Has gram-negative rods in sputum. Should be covered with Zosyn. 09/17/2016 on empiric antibiotics for gram-negative pneumonia. Does have patchy infiltrates on his lungs. May well have aspirated associated with his arrest. 09/18/2016 empiric antibiotics. Cultures have been negative. Does have pulmonary infiltrate. Likely had aspiration associated with his cardiac arrest and resuscitation. 09/19/2016 right basilar infiltrate. Suspect aspiration pneumonia. Cultures negative only grew Denise and this was likely upper airway contaminant Current Visit: Yes (4) History of cardiomyopathy Status: Acute Assessment and plan: Need an echo to see current LV function. 09/15/2016 cardiology following. Has ejection fraction 15-20%. Moderate AR. LVH with diastolic dysfunction as well. 09/16/2016 severe cardiomyopathy which appears to be ischemic. 09/17/2016 again has severe cardiomyopathy. Prognosis poor from that alone. 09/18/2016 underlying severe cardiomyopathy post myocardial infarction. Poor prognosis. 09/19/2016 severe cardiomyopathy. Current Visit: Yes (5) Increase in troponins Status: Acute Assessment and plan: Suggests a myocardial infarction. Patient did have a cardiac arrest with CPR. 09/15/2016 apparent myocardial infarction. 09/16/2016 acute myocardial infarction. 09/19/2016 had an acute myocardial infarction earlier. This was likely because of his cardiac arrest Current Visit: Yes
--- NOTE | 2016-09-19 08:36 | Nephrology Progress Note ---
Nephrology - PN: Subj Interval history: Patient remains intubated and sedate, he is nonresponsive from the Physical exam general the patient is chronically ill-appearing, heart is regular rate and rhythm, he has trace pretibial edema, lungs are clear to auscultation anteriorly, abdomen is soft with positive bowel sounds Assessment/plan 1. Acute renal failure-patient's creatinine continues to improve his BUN is improving as well 2. Hyponatremia-I am going to adjust his IV fluids to give him more free water 3. Metabolic acidosis-this is resolved a now has an alkalosis I will remove the bicarbonate from his IV fluids 4. Respiratory failure continue vent support Exam (PN)-Nephrology - Vital Signs Vital signs: Period Temp Pulse Resp BP Sys/Call Pulse Ox Last 24 Hr 97.7 F-98.1 F 53-85 12- 116-172/45-84 93-100 - Lab 09/19/16 02:17 09/19/16 02:17 Most recent lab results ABG pH 7.588 (7.35-7.45) H 09/19/16 04:08 ABG pCO2 38.3 MM HG (35-48) 09/19/16 04:08 ABG pO2 85.5 MM HG (80-95) 09/19/16 04:08 ABG HCO3 35.8 MMOL/L (20-26) H 09/19/16 04:08 ABG O2 Saturation 96.2 % (95-100) 09/19/16 04:08 Calcium 6.2 MG/DL (8.5-10.1) L 09/19/16 02:17 Phosphorus 9.0 MG/DL (2.5-4.9) H 09/16/16 05:09 Magnesium 3.2 MG/DL (1.8-2.4) H 09/19/16 02:17
[2016-09-19] MEDS: ALLOPURINOL 100 MG TABLET PO SCH (09:11)
[2016-09-19] MEDS: ASPIRIN EC 81 MG TABLET PO SCH (09:11)
[2016-09-19] MEDS: DEXTROSE 5% 1,000 ML IV SCH ×2 (09:36→23:20)
[2016-09-19] MEDS: MULTIVITAMIN LIQUID (CENTRUM) 60 ML BOTTLE PER TUBE SCH (09:37)
--- NOTE | 2016-09-19 09:39 | XRay Report ---
History is ventilator management Comparison 09/18/2016 The heart is enlarged. ET tube tip remains 1.5 cm above the albina Mild bilateral reticulonodular and hazy pulmonary opacities slightly more pronounced in the right remaining but are slightly improved in the interval. Impression: Slight improvement of the right greater than left pulmonary opacities PROCEDURE INTERPRETED AT [facility] DEPARTMENT OF RADIOLOGY Final Report Signed by: Dr. Carmen Olivo
[2016-09-19] MEDS ORDERED: POTASSIUM CHLORIDE 20 MEQ/15 ML UDCUP PO ONE (11:09)
[2016-09-19] MEDS ORDERED: POTASSIUM CHLORIDE 20 MEQ/15 ML UDCUP PO SCH (11:30)
--- NOTE | 2016-09-19 16:43 | Cardiology Progress Note ---
Assessment and Plan (1) Hypoxic encephalopathy Status: Acute Assessment and plan: Postcode anoxic encephalopathy Does not seem to be improved We will replete potassium if not already done Labile blood pressure yesterday so not wean Trying to wean a day Prognosis remains guarded Current Visit: Yes (2) ARF (acute renal failure) Status: Acute Current Visit: Yes (3) Aortic regurgitation Status: Acute Current Visit: Yes (4) Cardiomyopathy Status: Acute Current Visit: Yes (5) History of cardiomyopathy Status: Acute Current Visit: Yes (6) Increase in troponins Status: Acute Current Visit: Yes (7) Pneumonia Status: Acute Current Visit: Yes Cardiology - PN: Subj Interval history: Unresponsive on the vent. Exam (Progress Note) - Constitutional Vitals: Period Temp Pulse Resp BP Sys/Call Pulse Ox Last 24 Hr 97.2 F-98.1 F 56-79 12-25 116-172/47-86 94-100 Exam: HEENT: Pupils equal, reactive to light and accommodation Neck: NoJVD or bruit Lungs clear to auscultation Heart: Regular rhythm rate with normal S1 and S2. Apical S4 Abdomen: No hepatosplenomegaly Spine/extremities: No clubbing, cyanosis, or edema Neuro: Nonfocal Psych: No depression or anxiety Result/EKG - Labs CBC & BMP: 09/19/16 02:17 09/19/16 02:17 Lab Results: I have reviewed the past 24 hour labs Labs: Laboratory Results - last 24 hr 09/18/16 09/18/16 09/19/16 20:25 23:15 02:17 WBC 7.9 RBC 2.84 L Hgb 8.4 L Hct 26.0 L MCV 91.5 MCH 30 MCHC 32.3 RDW 16.7 Plt Count 73 L MPV 13.0 H Neut % (Auto) 92.6 H Lymph % (Auto) 1.9 L Wetzel % (Auto) 4.5 Eos % (Auto) 0.0 Baso % (Auto) 0.0 Neut # (Auto) 7.3 Lymph # (Auto) 0.2 L Wetzel # (Auto) 0.4 Eos # (Auto) 0.0 Baso # (Auto) 0.0 Total Counted 100 Immature Gran % 1.0 Nucleated RBC % 0.0 Immature Gran # 0.08 Segmented Neutrophils 92 H Lymphocytes 3 L Monocytes 5 Nucleated RBCs # 0.00 Platelet Estimate Decreased Anisocytosis 1+ ABG pH ABG pCO2 ABG pO2 ABG HCO3 ABG Total CO2 ABG O2 Saturation ABG Base Excess FiO2 Sodium Potassium Chloride Carbon Dioxide Anion Gap BUN Creatinine GFR Calculation BUN/Creatinine Ratio Glucose POC Glucose 164 H 205 H Calculated Osmolality Calcium Magnesium 09/19/16 09/19/16 09/19/16 02:17 04:08 04:25 WBC RBC Hgb Hct MCV MCH MCHC RDW Plt Count MPV Neut % (Auto) Lymph % (Auto) Wetzel % (Auto) Eos % (Auto) Baso % (Auto) Neut # (Auto) Lymph # (Auto) Wetzel # (Auto) Eos # (Auto) Baso # (Auto) Total Counted Immature Gran % Nucleated RBC % Immature Gran # Segmented Neutrophils Lymphocytes Monocytes Nucleated RBCs # Platelet Estimate Anisocytosis ABG pH 7.588 H ABG pCO2 38.3 ABG pO2 85.5 ABG HCO3 35.8 H ABG Total CO2 36.9 H ABG O2 Saturation 96.2 ABG Base Excess 13.0 H FiO2 40.00 Sodium 152 H Potassium 2.9 L Chloride 104 Carbon Dioxide 35 H Anion Gap 15.9 H BUN 113 H Creatinine 3.60 H GFR Calculation 14 BUN/Creatinine Ratio 31.00 H Glucose 180 H POC Glucose 189 H Calculated Osmolality 341.7 H Calcium 6.2 L Magnesium 3.2 H 09/19/16 09/19/16 08:53 11:23 WBC RBC Hgb Hct MCV MCH MCHC RDW Plt Count MPV Neut % (Auto) Lymph % (Auto) Wetzel % (Auto) Eos % (Auto) Baso % (Auto) Neut # (Auto) Lymph # (Auto) Wetzel # (Auto) Eos # (Auto) Baso # (Auto) Total Counted Immature Gran % Nucleated RBC % Immature Gran # Segmented Neutrophils Lymphocytes Monocytes Nucleated RBCs # Platelet Estimate Anisocytosis ABG pH ABG pCO2 ABG pO2 ABG HCO3 ABG Total CO2 ABG O2 Saturation ABG Base Excess FiO2 Sodium Potassium Chloride Carbon Dioxide Anion Gap BUN Creatinine GFR Calculation BUN/Creatinine Ratio Glucose POC Glucose 212 H 250 H Calculated Osmolality Calcium Magnesium - EKG EKG results: interpreted by me
[2016-09-19] MEDS: ATORVASTATIN 20 MG TABLET PO SCH (20:19)
[2016-09-19] MEDS: PROPOFOL 1,000 MG/100 ML BOTTLE IV SCH (20:52)
[2016-09-19] MEDS: PANTOPRAZOLE 40 MG VIAL IV SCH (21:27)
[2016-09-20] MEDS: INSULIN REGULAR 100 UNIT/ML SUBCUT SCH ×6 (00:33→21:21)
[2016-09-20] MEDS: PHENYLEPHRINE DRIP 40 MG/250 ML PREMIX IV SCH ×2 (00:33→23:53)
[2016-09-20 02:35] LABS: ABG Base Excess 11.2 MMOL/L (-2.5-2.5); ABG HCO3 34.1 MMOL/L (20-26); ABG Oxygen Saturation 96.8 % (95-100); ABG PCO2 38.1 MM HG (35-48); ABG PO2 96.3 MM HG (80-95); ABG TCO2 35.3 MMOL/L (23-27); Allen Test Positive; Pt O2 Delivery Device Ventilator
[2016-09-20] MEDS: methylPREDNISolone SOD SUC 125 MG/2 ML VIAL IV SCH ×3 (03:58→21:21)
[2016-09-20 06:52] LABS: Hematocrit 28.8 VOL% (42.0-52.0); Hemoglobin 9.4 GM/DL (14.0-18.0); Immature Granulocytes % 1.3 %; Immature Granulocytes Absolute 0.12 #; Lymphocytes # 0.2 10*3/uL (1.4-4.0); Lymphocytes % 1.6 % (21.2-54.2); Mean Corpuscular HGB Conc 32.6 GM/DL (32-36); Mean Corpuscular Hemoglobin 30 PG (27-34); Mean Corpuscular Volume 93.2 FL (87-102); Mean Platelet Volume 13.3 FL (9.6-12.0); Monocytes # 0.3 10*3/uL (0.11-0.8); Monocytes % 3.4 % (1.7-12.7); Neutrophils # 8.6 10*3/uL (1.4-7.4); Neutrophils % 93.7 % (38.7-73.9); Platelet Count 105 T/CUMM (130-400); Red Blood Count 3.09 MC/CUMM (3.8-5.5); Red Cell Distribution Width 16.6 % (9.3-17.3); White Blood Count 9.2 T/CUMM (4-12)
[2016-09-20 07:19] LABS: Calcium 6.6 MG/DL (8.5-10.1); Magnesium 3.1 MG/DL (1.8-2.4); Osmolality,Calculated 339.9 MOS/KG (273-304); Potassium 2.9 MMOL/L (3.5-5.1)
[2016-09-20 07:22] LABS: Hypochromasia 1+; Lymphocytes 2 % (20-55); Ovalocytes Slight; Platelet Estimate Decreased; Segmented Neutrophils 97 % (50-85); Total Cells Counted 100
[2016-09-20 07:23] LABS: Microcytosis Slight
[2016-09-20 07:24] LABS: Calcium 6.6 MG/DL (8.5-10.1); Osmolality,Calculated 335.1 MOS/KG (273-304); Phosphorous 5.3 MG/DL (2.5-4.9); Potassium 2.9 MMOL/L (3.5-5.1); Prealbumin 29.2 MG/DL (20-40)
[2016-09-20] MEDS: ACETYLCYSTEINE 20% 800 MG/4 ML VIAL RESP TX SCH ×2 (07:25→14:07)
--- NOTE | 2016-09-20 08:34 | Cardiology Progress Note ---
<Angie Zhang E - Last Filed: 09/20/16 09:59> Assessment and Plan - Time spent with patient Time spent with patient: Greater than 30 minutes (1) Cardiomyopathy Status: Acute Assessment and plan: SEE PLAN OF CARE LISTED BELOW Current Visit: Yes (2) Aortic regurgitation Status: Acute Assessment and plan: SEE PLAN OF CARE LISTED BELOW Current Visit: Yes (3) Cardiopulmonary arrest Status: Acute Assessment and plan: SEE PLAN OF CARE LISTED BELOW Current Visit: Yes (4) Pneumonia Status: Acute Assessment and plan: SEE PLAN OF CARE LISTED BELOW Current Visit: Yes (5) Increase in troponins Status: Acute Assessment and plan: SEE PLAN OF CARE LISTED BELOW Current Visit: Yes (6) Respiratory failure Status: Acute Current Visit: Yes (7) ARF (acute renal failure) Status: Acute Assessment and plan: SEE PLAN OF CARE LISTED BELOW Current Visit: Yes (8) Hypokalemia Status: Acute Assessment and plan: SEE PLAN OF CARE LISTED BELOW Current Visit: Yes Cardiology - PN: Subj Interval history: 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 KHALIF QUICK Patient is being seen in the ICU. SUMMARY: Mr. Gale, 81ChM, has previously been followed by Dr. Quick. He was last seen in cardiology clinic September 24, 2014. Risk factors include: Advanced age, known (moderate) coronary artery disease, hypertension, dyslipidemia, PVD, sedentary lifestyle. Last cardiac catheterization June 25, 2014 - see below for complete report. Patient presented to ER the evening of September 13, 2016 for shortness of breath. While in the emergency room, patient did CODE. It is felt he became hypoxic and possibly aspirated in addition to his pneumonia. He has been housed in our CCU since admission. Neurologically, patient is not waking, no spontaneous movement or movement to deep, painful stimuli. He is not on sedation. Cardiac biomarkers were elevated however due to his multiple comorbidities, he is not a candidate for invasive workup. Echocardiogram revealed EF 15-20%, moderate aortic regurgitation, PAP 25 mmHg + RAP. SEPTEMBER 20, 2016: Over the weekend, there is been no improvement. He is now DNR. Coreg 3.125 mg was introduced at the end of last week however, over the weekend it was discontinued due to episodes of bradycardia. Thrombocytopenia is slowly improving. Hypokalemia persists. Prognosis poor. Will further discuss with Dr. Mclean and await additional recommendations. ASSESSMENT/PLAN: 1. CARDIOPULMONARY ARREST - critically ill. Continue ventilatory support, off pressors. 2. CAD, MODERATE - history of moderate CAD. See report below regarding most recent results of heart catheterization 3. ELEVATED CARDIAC BIOMARKERS S/P CODE - continue current plan of care. Due to the patient's multiple comorbidities, medical management will ensue as he is not a candidate for invasive workup. 4. PNEUMONIA - currently being treated with steroids, antibiotics and pulmonary toilet. 5. THROMBOCYTOPENIA - platelets slowly improving. Lovenox has been held for several days. Daily monitoring recommended. Continue low dose aspirin. 6. ALTERED MENTAL STATUS - anoxic brain injury. CT head reveals chronic changes, nothing acute. Neurology following. 7. ACUTE RENAL FAILURE - Stage III. Continue with close monitoring. May be related to hypoxemic event. 8. CARDIOMYOPATHY - Etiology unknown, duration unknown but suspect related to recent events. Unable to tolerate CEDRIC (ARF). Unable to tolerate beta yamel due to bradycardia. 9. AORTIC REGURGITATION, MODERATE - continue current plan of care. 10. LIVER SHOCK - suspect elevated enzymes related to shock liver. 11. HYPOKALEMIA - replete and follow. Heart catheterization, performed by Dr. Khalif Quick, June 25, 2014: 1. Moderate CAD A. Right coronary artery with sequential 60%, 70% and 50% lesions 2. Right dominant coronary arteries 3. Ejection fraction 40% to 45%, although this was difficult to assess due to poor visualization of the left ventricle. 4. Mild to moderate aortic stenosis with a peak gradient of 35 mmHg, mean gradient of 16 mmHg. 5. Tortuous and calcified right iliac artery with mild to moderate atherosclerotic vascular disease no evidence of vascular complication. Exam (Progress Note) - Constitutional Vitals: Period Temp Pulse Resp BP Sys/Call Pulse Ox Last 24 Hr 97.1 F-97.4 F 56-86 12-25 129-170/58-99 98-100 Exam: General: [Appears critically ill. ] [Remains intubated. ] [Appears comfortable. ] HEENT: [Normocephalic, atraumatic. Mucous membranes moist. No jaundice noted. Conjunctiva moist and clear, sclerae anicteric] Neck: No obvious JVD/HJR, no thyromegaly or lymphadenopathy noted. No carotid bruit appreciated Cardiac: [Regular rate and rhythm.] [No obvious murmur rub or gallop.] Lungs: [Rhonchi noted throughout. Symmetrical chest wall movements noted. Remains intubated. Abdomen: Soft, bowel sounds normoactive. Nontender and nondistended. No abdominal bruit or thrill noted. No masses noted. Musculoskeletal: No fluid collection. Decreased range of motion is noted. Extremities: No clubbing, cyanosis noted. [ Trace edema noted. ] Upper extremity pulses 2+. Lower extremity pulses 1+. Capillary refill less than 3 seconds. Skin: Multiple areas of ecchymosis. No skin breakdown appreciated. Neuro: Not following commands at this time. No essential tremors appreciated. Result/EKG - Labs CBC & BMP: 09/20/16 06:30 09/20/16 06:30 Lab Results: I have reviewed the past 24 hour labs Labs: Laboratory Results - last 24 hr 09/19/16 09/19/16 09/19/16 08:53 11:23 16:43 WBC RBC Hgb Hct MCV MCH MCHC RDW Plt Count MPV Neut % (Auto) Lymph % (Auto) [place] % (Auto) Eos % (Auto) Baso % (Auto) Neut # (Auto) Lymph # (Auto) [place] # (Auto) Eos # (Auto) Baso # (Auto) Total Counted Immature Gran % Nucleated RBC % Immature Gran # Segmented Neutrophils Lymphocytes Monocytes Nucleated RBCs # Platelet Estimate Hypochromasia Microcytosis Ovalocytes Morphology Comment Haptoglobin Fibrinogen ABG pH ABG pCO2 ABG pO2 ABG HCO3 ABG Total CO2 ABG O2 Saturation ABG Base Excess FiO2 Sodium Potassium Chloride Carbon Dioxide Anion Gap BUN Creatinine GFR Calculation BUN/Creatinine Ratio Glucose POC Glucose 212 H 250 H 300 H Calculated Osmolality Calcium Phosphorus Magnesium Lactate Dehydrogenase Total Creatine Kinase Prealbumin 09/19/16 09/20/16 09/20/16 20:01 00:22 02:25 WBC RBC Hgb Hct MCV MCH MCHC RDW Plt Count MPV Neut % (Auto) Lymph % (Auto) [place] % (Auto) Eos % (Auto) Baso % (Auto) Neut # (Auto) Lymph # (Auto) [place] # (Auto) Eos # (Auto) Baso # (Auto) Total Counted Immature Gran % Nucleated RBC % Immature Gran # Segmented Neutrophils Lymphocytes Monocytes Nucleated RBCs # Platelet Estimate Hypochromasia Microcytosis Ovalocytes Morphology Comment Haptoglobin Fibrinogen ABG pH 7.570 H ABG pCO2 38.1 ABG pO2 96.3 H ABG HCO3 34.1 H ABG Total CO2 35.3 H ABG O2 Saturation 96.8 ABG Base Excess 11.2 H FiO2 40.00 Sodium Potassium Chloride Carbon Dioxide Anion Gap BUN Creatinine GFR Calculation BUN/Creatinine Ratio Glucose POC Glucose 283 H 352 H Calculated Osmolality Calcium Phosphorus Magnesium Lactate Dehydrogenase Total Creatine Kinase Prealbumin 09/20/16 09/20/16 09/20/16 03:53 05:57 06:30 WBC 9.2 RBC 3.09 L Hgb 9.4 L Hct 28.8 L MCV 93.2 MCH 30 MCHC 32.6 RDW 16.6 Plt Count 105 L D MPV 13.3 H Neut % (Auto) 93.7 H Lymph % (Auto) 1.6 L [place] % (Auto) 3.4 Eos % (Auto) 0.0 Baso % (Auto) 0.0 Neut # (Auto) 8.6 H Lymph # (Auto) 0.2 L [place] # (Auto) 0.3 Eos # (Auto) 0.0 Baso # (Auto) 0.0 Total Counted 100 Immature Gran % 1.3 Nucleated RBC % 0.0 Immature Gran # 0.12 Segmented Neutrophils 97 H Lymphocytes 2 L Monocytes 1 L Nucleated RBCs # 0.00 Platelet Estimate Decreased Hypochromasia 1+ Microcytosis Slight Ovalocytes Slight Morphology Comment Haptoglobin Fibrinogen ABG pH ABG pCO2 ABG pO2 ABG HCO3 ABG Total CO2 ABG O2 Saturation ABG Base Excess FiO2 Sodium Potassium Chloride Carbon Dioxide Anion Gap BUN Creatinine GFR Calculation BUN/Creatinine Ratio Glucose POC Glucose 317 H 347 H Calculated Osmolality Calcium Phosphorus Magnesium Lactate Dehydrogenase Total Creatine Kinase Prealbumin 09/20/16 09/20/16 09/20/16 06:30 06:30 06:30 WBC RBC Hgb Hct MCV MCH MCHC RDW Plt Count MPV Neut % (Auto) Lymph % (Auto) [place] % (Auto) Eos % (Auto) Baso % (Auto) Neut # (Auto) Lymph # (Auto) [place] # (Auto) Eos # (Auto) Baso # (Auto) Total Counted Immature Gran % Nucleated RBC % Immature Gran # Segmented Neutrophils Lymphocytes Monocytes Nucleated RBCs # Platelet Estimate Hypochromasia Microcytosis Ovalocytes Morphology Comment Haptoglobin 236.0 H Fibrinogen 271 ABG pH ABG pCO2 ABG pO2 ABG HCO3 ABG Total CO2 ABG O2 Saturation ABG Base Excess FiO2 Sodium 151 H Potassium 2.9 L Chloride 107 Carbon Dioxide 33 H Anion Gap 13.9 BUN 95 H Creatinine 3.00 H GFR Calculation 17 BUN/Creatinine Ratio 31.00 H Glucose 307 H POC Glucose Calculated Osmolality 339.9 H Calcium 6.6 L Phosphorus Magnesium 3.1 H Lactate Dehydrogenase 985 H Total Creatine Kinase Prealbumin 09/20/16 09/20/16 09/20/16 06:30 06:30 07:09 WBC RBC Hgb Hct MCV MCH MCHC RDW Plt Count MPV Neut % (Auto) Lymph % (Auto) [place] % (Auto) Eos % (Auto) Baso % (Auto) Neut # (Auto) Lymph # (Auto) [place] # (Auto) Eos # (Auto) Baso # (Auto) Total Counted Immature Gran % Nucleated RBC % Immature Gran # Segmented Neutrophils Lymphocytes Monocytes Nucleated RBCs # Platelet Estimate Hypochromasia Microcytosis Ovalocytes Morphology Comment Haptoglobin Fibrinogen ABG pH ABG pCO2 ABG pO2 ABG HCO3 ABG Total CO2 ABG O2 Saturation ABG Base Excess FiO2 Sodium 149 H Potassium 2.9 L Chloride 105 Carbon Dioxide 34 H Anion Gap 12.9 BUN 93 H Creatinine 3.00 H GFR Calculation 17 BUN/Creatinine Ratio 31.00 H Glucose 299 H POC Glucose 346 H Calculated Osmolality 335.1 H Calcium 6.6 L Phosphorus 5.3 H Magnesium Lactate Dehydrogenase Total Creatine Kinase 1087 H D Prealbumin 29.2 - Diagnostic Findings Procedure: Chest x-ray: report reviewed by ri - EKG EKG results: interpreted by ri EKG shows: sinus rhythm <Bahman Mclean - Last Filed: 09/20/16 11:42> Exam (Progress Note) - Constitutional Vitals: Period Temp Pulse Resp BP Sys/Call Pulse Ox Last 24 Hr 97.0 F-97.4 F 56-86 12-26 129-170/58-99 97-100 Result/EKG - Labs CBC & BMP: 09/20/16 06:30 09/20/16 06:30 Labs: Laboratory Results - last 24 hr 09/19/16 09/19/16 09/19/16 11:23 16:43 20:01 WBC RBC Hgb Hct MCV MCH MCHC RDW Plt Count MPV Neut % (Auto) Lymph % (Auto) [place] % (Auto) Eos % (Auto) Baso % (Auto) Neut # (Auto) Lymph # (Auto) [place] # (Auto) Eos # (Auto) Baso # (Auto) Total Counted Immature Gran % Nucleated RBC % Immature Gran # Segmented Neutrophils Lymphocytes Monocytes Nucleated RBCs # Platelet Estimate Hypochromasia Microcytosis Ovalocytes Morphology Comment Haptoglobin Fibrinogen ABG pH ABG pCO2 ABG pO2 ABG HCO3 ABG Total CO2 ABG O2 Saturation ABG Base Excess FiO2 Sodium Potassium Chloride Carbon Dioxide Anion Gap BUN Creatinine GFR Calculation BUN/Creatinine Ratio Glucose POC Glucose 250 H 300 H 283 H Calculated Osmolality Calcium Phosphorus Magnesium Lactate Dehydrogenase Total Creatine Kinase Prealbumin 09/20/16 09/20/16 09/20/16 00:22 02:25 03:53 WBC RBC Hgb Hct MCV MCH MCHC RDW Plt Count MPV Neut % (Auto) Lymph % (Auto) [place] % (Auto) Eos % (Auto) Baso % (Auto) Neut # (Auto) Lymph # (Auto) [place] # (Auto) Eos # (Auto) Baso # (Auto) Total Counted Immature Gran % Nucleated RBC % Immature Gran # Segmented Neutrophils Lymphocytes Monocytes Nucleated RBCs # Platelet Estimate Hypochromasia Microcytosis Ovalocytes Morphology Comment Haptoglobin Fibrinogen ABG pH 7.570 H ABG pCO2 38.1 ABG pO2 96.3 H ABG HCO3 34.1 H ABG Total CO2 35.3 H ABG O2 Saturation 96.8 ABG Base Excess 11.2 H FiO2 40.00 Sodium Potassium Chloride Carbon Dioxide Anion Gap BUN Creatinine GFR Calculation BUN/Creatinine Ratio Glucose POC Glucose 352 H 317 H Calculated Osmolality Calcium Phosphorus Magnesium Lactate Dehydrogenase Total Creatine Kinase Prealbumin 09/20/16 09/20/16 09/20/16 05:57 06:30 06:30 WBC 9.2 RBC 3.09 L Hgb 9.4 L Hct 28.8 L MCV 93.2 MCH 30 MCHC 32.6 RDW 16.6 Plt Count 105 L D MPV 13.3 H Neut % (Auto) 93.7 H Lymph % (Auto) 1.6 L [place] % (Auto) 3.4 Eos % (Auto) 0.0 Baso % (Auto) 0.0 Neut # (Auto) 8.6 H Lymph # (Auto) 0.2 L [place] # (Auto) 0.3 Eos # (Auto) 0.0 Baso # (Auto) 0.0 Total Counted 100 Immature Gran % 1.3 Nucleated RBC % 0.0 Immature Gran # 0.12 Segmented Neutrophils 97 H Lymphocytes 2 L Monocytes 1 L Nucleated RBCs # 0.00 Platelet Estimate Decreased Hypochromasia 1+ Microcytosis Slight Ovalocytes Slight Morphology Comment Haptoglobin Fibrinogen ABG pH ABG pCO2 ABG pO2 ABG HCO3 ABG Total CO2 ABG O2 Saturation ABG Base Excess FiO2 Sodium 151 H Potassium 2.9 L Chloride 107 Carbon Dioxide 33 H Anion Gap 13.9 BUN 95 H Creatinine 3.00 H GFR Calculation 17 BUN/Creatinine Ratio 31.00 H Glucose 307 H POC Glucose 347 H Calculated Osmolality 339.9 H Calcium 6.6 L Phosphorus Magnesium 3.1 H Lactate Dehydrogenase Total Creatine Kinase Prealbumin 09/20/16 09/20/16 09/20/16 06:30 06:30 06:30 WBC RBC Hgb Hct MCV MCH MCHC RDW Plt Count MPV Neut % (Auto) Lymph % (Auto) [place] % (Auto) Eos % (Auto) Baso % (Auto) Neut # (Auto) Lymph # (Auto) [place] # (Auto) Eos # (Auto) Baso # (Auto) Total Counted Immature Gran % Nucleated RBC % Immature Gran # Segmented Neutrophils Lymphocytes Monocytes Nucleated RBCs # Platelet Estimate Hypochromasia Microcytosis Ovalocytes Morphology Comment Haptoglobin 236.0 H Fibrinogen 271 ABG pH ABG pCO2 ABG pO2 ABG HCO3 ABG Total CO2 ABG O2 Saturation ABG Base Excess FiO2 Sodium 149 H Potassium 2.9 L Chloride 105 Carbon Dioxide 34 H Anion Gap 12.9 BUN 93 H Creatinine 3.00 H GFR Calculation 17 BUN/Creatinine Ratio 31.00 H Glucose 299 H POC Glucose Calculated Osmolality 335.1 H Calcium 6.6 L Phosphorus 5.3 H Magnesium Lactate Dehydrogenase 985 H Total Creatine Kinase Prealbumin 29.2 09/20/16 09/20/16 09/20/16 06:30 07:09 11:41 WBC RBC Hgb Hct MCV MCH MCHC RDW Plt Count MPV Neut % (Auto) Lymph % (Auto) [place] % (Auto) Eos % (Auto) Baso % (Auto) Neut # (Auto) Lymph # (Auto) [place] # (Auto) Eos # (Auto) Baso # (Auto) Total Counted Immature Gran % Nucleated RBC % Immature Gran # Segmented Neutrophils Lymphocytes Monocytes Nucleated RBCs # Platelet Estimate Hypochromasia Microcytosis Ovalocytes Morphology Comment Haptoglobin Fibrinogen ABG pH ABG pCO2 ABG pO2 ABG HCO3 ABG Total CO2 ABG O2 Saturation ABG Base Excess FiO2 Sodium Potassium Chloride Carbon Dioxide Anion Gap BUN Creatinine GFR Calculation BUN/Creatinine Ratio Glucose POC Glucose 346 H 338 H Calculated Osmolality Calcium Phosphorus Magnesium Lactate Dehydrogenase Total Creatine Kinase 1087 H D Prealbumin
--- NOTE | 2016-09-20 08:49 | Pulmonology Progress Note ---
Pulmonary - PN: Subj Interval history: 81-year-old [place] male with cardiopulmonary arrest. As apparent hypoxic brain injury. Neurology following. He is on the ventilator. ABGs acceptable. Cannot wean until mental status changes. 09/16/2016 patient remains unresponsive. Does have pupillary reflexes. Severe hypoxic brain injury apparently. Continuing mechanical ventilatory support for now. 09/17/2016 patient unresponsive except to painful stimulation. Still has pupillary reflexes. Starting to do CPAP trials. Family needs information on neurologic prognosis. From pulmonary standpoint we will continue with mechanical ventilation and weaning trials for now. 09/18/16 patient remains unresponsive. He does have some spontaneous respirations and moves about a little. He has had some episodes of bradycardia. Coreg has been stopped. 09/19/2016 again patient unresponsive. He has some spontaneous movement of his eyes and chin. Does not respond to anything did not do CPAP yesterday as his blood pressures were unstable. Will try to resume them again today. 09/20/2016 patient turns his head to the side a little with painful stimulus. Does not follow with eyes. Does not follow instructions. He is in deep coma, not quite persistent vegetative state. Need follow-up from neurology. Prognosis appears to be grave. Will need a decision as to whether to proceed with mechanical ventilatory support long-term in which case he would need a tracheostomy, or comfort measures in which case a terminal wean would be indicated. Exam (Progress Note) - Constitutional Vitals: Period Temp Pulse Resp BP Sys/Call Pulse Ox Last 24 Hr 97.1 F-97.4 F 56-86 12-25 129-170/58-99 98-100 Exam: Unresponsive, except he does flinch slightly with painful stimulus. Pupils small but reactive. Apparently has cataracts. Orotracheal tube in place. Neck is supple. Chest reveals some bibasilar rales otherwise clear. Heart normal rate rhythm no murmurs. Abdomen soft no masses. Extremities no clubbing cyanosis or edema. Little change from yesterday. Results - Labs CBC & BMP: 09/20/16 06:30 09/20/16 06:30 Lab Results: I have reviewed the past 24 hour labs Assessment and Plan (1) Respiratory failure Status: Acute Assessment and plan: ABGs look good. Will reduce FiO2 and assist control rate a little. 09/15/2016 ABGs acceptable on current settings. Mental status will tell us what to do weaning device. At present not ready for any weaning trials. ABGs look good with a PO2 111, PCO2 30, pH 7.41. We will keep at present settings. 09/16/2016 ABGs acceptable. Mental status does not allow weaning as yet. 09/17/2016 respiratory failure secondary to cardiac arrest with hypoxic brain injury. ABGs acceptable. Pending today. Tolerating weaning trials. Will be able to extubate until decision made about mental status. May require tracheostomy if long-term support is planned. 09/18/16 patient is making progress with CPAP. Would not be able to defend his airway if extubated at present. Await further neurologic evaluation. If long- term support is required, tracheostomy would be indicated next week. 09/19/2016 unable to do CPAP yesterday. Will resume them today. 09/20/2016 did tolerate CPAP yesterday. At this point will need a decision from his family as to whether they want to continue with longer term mechanical ventilatory support, or comfort measures. It appears that his neurologic status is not improving. I do not think he can defend his airway if he were extubated now. Current Visit: Yes (2) Cardiopulmonary arrest Status: Acute Assessment and plan: Remains to be seen what his mental status will be like. Continuing support. History of cardiomyopathy and cardiac enzymes apparently myocardial infarction. 09/15/2016 apparent myocardial infarction with cardiac arrest and hypoxic brain injury. 09/16/2016 status post myocardial infarction with cardiac arrest. Has severe hypoxic brain injury. 09/17/2016 status post myocardial infarction with cardiac arrest and hypoxic brain injury. Defer to cardiology and neurology. 09/18/2016 hypoxic brain injury. No change in neurologic status. 09/19/2016 patient is not waking up. 09/20/2016 patient is in deep coma. Current Visit: Yes (3) Pneumonia Status: Acute Assessment and plan: Agree with broad-spectrum antibiotics. 09/15/2016 continuing broad-spectrum antibiotics. 09/16/2016 empiric antibiotics. Has gram-negative rods in sputum. Should be covered with Zosyn. 09/17/2016 on empiric antibiotics for gram-negative pneumonia. Does have patchy infiltrates on his lungs. May well have aspirated associated with his arrest. 09/18/2016 empiric antibiotics. Cultures have been negative. Does have pulmonary infiltrate. Likely had aspiration associated with his cardiac arrest and resuscitation. 09/19/2016 right basilar infiltrate. Suspect aspiration pneumonia. Cultures negative only grew Denise and this was likely upper airway contaminant 09/20/2016 continuing empiric antibiotics. Current Visit: Yes (4) History of cardiomyopathy Status: Acute Assessment and plan: Need an echo to see current LV function. 09/15/2016 cardiology following. Has ejection fraction 15-20%. Moderate AR. LVH with diastolic dysfunction as well. 09/16/2016 severe cardiomyopathy which appears to be ischemic. 09/17/2016 again has severe cardiomyopathy. Prognosis poor from that alone. 09/18/2016 underlying severe cardiomyopathy post myocardial infarction. Poor prognosis. 09/19/2016 severe cardiomyopathy. 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 Current Visit: Yes (5) Increase in troponins Status: Acute Assessment and plan: Suggests a myocardial infarction. Patient did have a cardiac arrest with CPR. 09/15/2016 apparent myocardial infarction. 09/16/2016 acute myocardial infarction. 09/19/2016 had an acute myocardial infarction earlier. This was likely because of his cardiac arrest 09/20/2016 had acute myocardial infarction that led to his arrest. Current Visit: Yes
[2016-09-20] MEDS: ASPIRIN EC 81 MG TABLET PO SCH (09:06)
[2016-09-20] MEDS: ALLOPURINOL 100 MG TABLET PO SCH (09:06)
[2016-09-20] MEDS: PIPERACILLIN/TAZOBACTAM 3,375 MG in SODIUM CHLORIDE 0.9% 100 ML IV SCH ×2 (09:07→21:22)
[2016-09-20] MEDS: MULTIVITAMIN LIQUID (CENTRUM) 60 ML BOTTLE PER TUBE SCH (09:07)
--- NOTE | 2016-09-20 11:50 | Nephrology Progress Note ---
Nephrology - PN: Subj Interval history: He remains on the ventilator. No change in neurologic status Exam (PN)-Nephrology - Vital Signs Vital signs: Period Temp Pulse Resp BP Sys/Call Pulse Ox Last 24 Hr 97.0 F-97.4 F 56-86 12- 129-170/58-99 97-100 Exam: Gen.: Not responsive, on ventilator ENT: Pupils equal round reactive to light. Neck: Supple. No JVD or bruit. Cardiovascular: Regular rate and rhythm. No murmur rub or gallop Lungs: Scattered rhonchi Abdomen: Soft. Nontender. Positive bowel sounds. No organomegaly Extremities: No edema - Lab 09/20/16 06:30 09/20/16 06:30 Most recent lab results ABG pH 7.570 (7.35-7.45) H 09/20/16 02:25 ABG pCO2 38.1 MM HG (35-48) 09/20/16 02:25 ABG pO2 96.3 MM HG (80-95) H 09/20/16 02:25 ABG HCO3 34.1 MMOL/L (20-26) H 09/20/16 02:25 ABG O2 Saturation 96.8 % (95-100) 09/20/16 02:25 Calcium 6.6 MG/DL (8.5-10.1) L 09/20/16 06:30 Phosphorus 5.3 MG/DL (2.5-4.9) H 09/20/16 06:30 Magnesium 3.1 MG/DL (1.8-2.4) H 09/20/16 06:30 Assessment and Plan (1) ARF (acute renal failure) Status: Acute Assessment and plan: 81-year-old man with: * Pneumonia * Cardiopulmonary arrest. Continue ventilatory support * acute [place]. * Cardiomyopathy. EF 15-20% * ARF. Creatinine is beginning to improve. Urine output adequate Current Visit: Yes (2) Cardiopulmonary arrest Status: Acute Current Visit: Yes (3) History of cardiomyopathy Status: Acute Current Visit: Yes (4) Hypoxic encephalopathy Status: Acute Current Visit: Yes (5) Increase in troponins Status: Acute Current Visit: Yes (6) Pneumonia Status: Acute Current Visit: Yes (7) Respiratory failure Status: Acute Current Visit: Yes
[2016-09-20] MEDS: DEXTROSE 5% 1,000 ML IV SCH (13:16)
--- NOTE | 2016-09-20 14:14 | Neurology Progress Note ---
Neurology - PN : Subjective Interval history: Patient continued to remain same. No changes reported. Still unresponsive. Exam (Progress Note) - Constitutional Vitals: Period Temp Pulse Resp BP Sys/Call Pulse Ox Last 24 Hr 97.0 F-97.4 F 58-86 12- 129-170/58-99 97-100 Exam: GENERAL: Patient is in no acute distress. NECK: Neck is supple. There is no JVD. No carotid bruits present. No thyroid masses. CVS: First and second heart sounds are normal. There is no S3 present. Regular rate and rhythm. RESPIRATORY: Lungs are clear to auscultation without any rales or rhonchi. ABDOMEN: Soft and non-tender. Bowel sounds are present. There is no hepatosplenomegaly. EXT: There is no palpable edema. Peripheral pulses are present. Skin: No rashes Central Nervous system: General: Unresponsive on vent Speech: None Comprehension: None Facial expressions: Normal Cranial Nerves: Pupils are sluggish but reactive. Doll's head eye movements are negative. No facial asymmetry seen. Motor: Bulk and Tone is normal. Strength cannot be assessed Sensory: Cannot be assessed Reflexes: 1+ and symmetrical Cerebellar function: Normal finger to nose and heel to [place] testing. Toes: Equivocal Gait: Cannot be assessed Results - Labs CBC & BMP: 09/20/16 06:30 09/20/16 06:30 Assessment and Plan (1) Hypoxic encephalopathy Status: Acute Assessment and plan: Hypoxic/anoxic encephalopathy secondary to cardiopulmonary arrest Continue supportive management Prognosis is poor. Patient is DNR Probably will need LTAC placement Sign off please call as needed Current Visit: Yes
--- NOTE | 2016-09-20 14:56 | Hospitalist Progress Note ---
Assessment and Plan (1) Cardiopulmonary arrest Status: Acute Assessment and plan: 1)anoxic brain injury after arrest- very poor prognosis. neurology has signed off 2)cardiomyopathy- cardiology with nothing more to add, they have signed off. Echo with EF 15-20%. no coreg because of bradycardia, no ramos because of renal failure 3)JACK- UOP ok, creatinine beginning to recover. renal US showed chronic disease , and of course his acutely worsened creatinine is due to ATN from arrest. 4)acute [place] 5)respiratory failure with aspiration pneumonia following arrest- on vent, on IV antibiotics. cultures negative except fo yeast contaminant in sputum. 6)bradycardia- holding coreg. 7)anemia- holding lovenox Current Visit: Yes (2) Pneumonia Status: Acute Current Visit: Yes (3) Respiratory failure Status: Acute Current Visit: Yes (4) Hypoxic encephalopathy Status: Acute Current Visit: Yes (5) Cardiomyopathy Status: Acute Current Visit: Yes (6) Hypokalemia Status: Acute Current Visit: Yes Hospitalist: Subjective Interval history: Stable on vent. Remains in deep coma. Exam - Constitutional Vitals: Period Temp Pulse Resp BP Sys/Call Pulse Ox Last 24 Hr 97.0 F-97.4 F 58-86 12-26 129-170/58-99 97-100 General appearance: normal weight, no acute distress - Eye Eye exam: Absent: EOMI, scleral icterus Pupils: Present: PERRY - Respiratory Respiratory exam: Present: clear to auscultation bilaterally - Cardiovascular Cardiovascular exam: Present: regular rate and rhythm - GI/Abdominal GI/Abdominal exam: Present: normal bowel sounds, soft - Extremities Exam Extremities exam: Present: edema - Neurological Exam Neurological exam: Present: altered, other (occ responds to deep pain) Results - Labs CBC & BMP: 09/20/16 06:30 09/20/16 06:30 Lab Results: I have reviewed the past 24 hour labs
[2016-09-20] MEDS: PANTOPRAZOLE 40 MG VIAL IV SCH (21:21)
[2016-09-20] MEDS: ATORVASTATIN 20 MG TABLET PO SCH (21:22)
[2016-09-20] MEDS: PROPOFOL 1,000 MG/100 ML BOTTLE IV SCH (22:13)
[2016-09-21] MEDS: INSULIN REGULAR 100 UNIT/ML SUBCUT SCH ×6 (00:06→20:03)
[2016-09-21] MEDS: ACETYLCYSTEINE 20% 800 MG/4 ML VIAL RESP TX SCH ×4 (00:21→23:18)
[2016-09-21] MEDS: ALBUTEROL 2.5 MG/3 ML NEB RESP TX PRN ×2 (00:21→23:18)
[2016-09-21] MEDS: DEXTROSE 5% 1,000 ML IV SCH ×2 (05:15→18:02)
[2016-09-21] MEDS: methylPREDNISolone SOD SUC 125 MG/2 ML VIAL IV SCH ×3 (05:15→20:04)
[2016-09-21 05:28] LABS: Basophils % 0.2 % (0.0-0.8); Hematocrit 27.7 VOL% (42.0-52.0); Hemoglobin 8.8 GM/DL (14.0-18.0); Immature Granulocytes % 1.4 %; Immature Granulocytes Absolute 0.15 #; Lymphocytes # 0.1 10*3/uL (1.4-4.0); Lymphocytes % 0.7 % (21.2-54.2); Mean Corpuscular HGB Conc 31.8 GM/DL (32-36); Mean Corpuscular Hemoglobin 29 PG (27-34); Mean Corpuscular Volume 92.3 FL (87-102); Mean Platelet Volume 13.3 FL (9.6-12.0); Monocytes # 0.4 10*3/uL (0.11-0.8); Monocytes % 3.3 % (1.7-12.7); Neutrophils # 10.3 10*3/uL (1.4-7.4); Neutrophils % 94.4 % (38.7-73.9); Platelet Count 118 T/CUMM (130-400); Red Cell Distribution Width 16.3 % (9.3-17.3); White Blood Count 10.9 T/CUMM (4-12)
[2016-09-21 06:00] LABS: Band Neutrophils 2 % (0-10); Lymphocytes 1 % (20-55); Segmented Neutrophils 96 % (50-85); Total Cells Counted 100
[2016-09-21 06:01] LABS: Hypochromasia 1+; Microcytosis Slight; Ovalocytes Slight; Platelet Estimate Decreased
[2016-09-21 06:03] LABS: Calcium 6.7 MG/DL (8.5-10.1); Magnesium 3.2 MG/DL (1.8-2.4); Osmolality,Calculated 328.6 MOS/KG (273-304); Potassium 2.6 MMOL/L (3.5-5.1)
--- NOTE | 2016-09-21 07:46 | Pulmonology Progress Note ---
Pulmonary - PN: Subj Interval history: 81-year-old [place] male with cardiopulmonary arrest. As apparent hypoxic brain injury. Neurology following. He is on the ventilator. ABGs acceptable. Cannot wean until mental status changes. 09/16/2016 patient remains unresponsive. Does have pupillary reflexes. Severe hypoxic brain injury apparently. Continuing mechanical ventilatory support for now. 09/17/2016 patient unresponsive except to painful stimulation. Still has pupillary reflexes. Starting to do CPAP trials. Family needs information on neurologic prognosis. From pulmonary standpoint we will continue with mechanical ventilation and weaning trials for now. 09/18/16 patient remains unresponsive. He does have some spontaneous respirations and moves about a little. He has had some episodes of bradycardia. Coreg has been stopped. 09/19/2016 again patient unresponsive. He has some spontaneous movement of his eyes and chin. Does not respond to anything did not do CPAP yesterday as his blood pressures were unstable. Will try to resume them again today. 09/20/2016 patient turns his head to the side a little with painful stimulus. Does not follow with eyes. Does not follow instructions. He is in deep coma, not quite persistent vegetative state. Need follow-up from neurology. Prognosis appears to be grave. Will need a decision as to whether to proceed with mechanical ventilatory support long-term in which case he would need a tracheostomy, or comfort measures in which case a terminal wean would be indicated. 09/21/2016 little change from yesterday. Continuing mechanical ventilation. Tolerating CPAP. Cannot extubate as yet. Patient is now a DO NOT RESUSCITATE. I would recommend terminal wean. He may breathe for some time following that as he does appear to have respiratory drive persisting. Defer to primary physicians and family Exam (Progress Note) - Constitutional Vitals: Period Temp Pulse Resp BP Sys/Call Pulse Ox Last 24 Hr 97.0 F-97.5 F 59-86 12-184 102-167/55-102 97-100 Exam: Unresponsive, except he does flinch slightly with painful stimulus. Pupils small but reactive. Apparently has cataracts. Orotracheal tube in place. Neck is supple. Chest reveals some bibasilar rales otherwise clear. Heart normal rate rhythm no murmurs. Abdomen soft no masses. Extremities no clubbing cyanosis or edema. Again, little change from yesterday. Results - Labs CBC & BMP: 09/21/16 04:05 09/21/16 04:05 Lab Results: I have reviewed the past 24 hour labs Assessment and Plan (1) Respiratory failure Status: Acute Assessment and plan: ABGs look good. Will reduce FiO2 and assist control rate a little. 09/15/2016 ABGs acceptable on current settings. Mental status will tell us what to do weaning device. At present not ready for any weaning trials. ABGs look good with a PO2 111, PCO2 30, pH 7.41. We will keep at present settings. 09/16/2016 ABGs acceptable. Mental status does not allow weaning as yet. 09/17/2016 respiratory failure secondary to cardiac arrest with hypoxic brain injury. ABGs acceptable. Pending today. Tolerating weaning trials. Will be able to extubate until decision made about mental status. May require tracheostomy if long-term support is planned. 09/18/16 patient is making progress with CPAP. Would not be able to defend his airway if extubated at present. Await further neurologic evaluation. If long- term support is required, tracheostomy would be indicated next week. 09/19/2016 unable to do CPAP yesterday. Will resume them today. 09/20/2016 did tolerate CPAP yesterday. At this point will need a decision from his family as to whether they want to continue with longer term mechanical ventilatory support, or comfort measures. It appears that his neurologic status is not improving. I do not think he can defend his airway if he were extubated now. 09/21/2016 continuing with mechanical ventilation. Again sources as outlined in yesterday's note Current Visit: Yes (2) Cardiopulmonary arrest Status: Acute Assessment and plan: Remains to be seen what his mental status will be like. Continuing support. History of cardiomyopathy and cardiac enzymes apparently myocardial infarction. 09/15/2016 apparent myocardial infarction with cardiac arrest and hypoxic brain injury. 09/16/2016 status post myocardial infarction with cardiac arrest. Has severe hypoxic brain injury. 09/17/2016 status post myocardial infarction with cardiac arrest and hypoxic brain injury. Defer to cardiology and neurology. 09/18/2016 hypoxic brain injury. No change in neurologic status. 09/19/2016 patient is not waking up. 09/20/2016 patient is in deep coma. 09/21/2016 has severe hypoxic brain injury with deep coma. Still has respiratory drive. Current Visit: Yes (3) Pneumonia Status: Acute Assessment and plan: Agree with broad-spectrum antibiotics. 09/15/2016 continuing broad-spectrum antibiotics. 09/16/2016 empiric antibiotics. Has gram-negative rods in sputum. Should be covered with Zosyn. 09/17/2016 on empiric antibiotics for gram-negative pneumonia. Does have patchy infiltrates on his lungs. May well have aspirated associated with his arrest. 09/18/2016 empiric antibiotics. Cultures have been negative. Does have pulmonary infiltrate. Likely had aspiration associated with his cardiac arrest and resuscitation. 09/19/2016 right basilar infiltrate. Suspect aspiration pneumonia. Cultures negative only grew Denise and this was likely upper airway contaminant 09/20/2016 continuing empiric antibiotics. 09/21/2016 on empiric antibiotics. No bacteria growing on cultures Current Visit: Yes (4) History of cardiomyopathy Status: Acute Assessment and plan: Need an echo to see current LV function. 09/15/2016 cardiology following. Has ejection fraction 15-20%. Moderate AR. LVH with diastolic dysfunction as well. 09/16/2016 severe cardiomyopathy which appears to be ischemic. 09/17/2016 again has severe cardiomyopathy. Prognosis poor from that alone. 09/18/2016 underlying severe cardiomyopathy post myocardial infarction. Poor prognosis. 09/19/2016 severe cardiomyopathy. 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 Current Visit: Yes (5) Increase in troponins Status: Acute Assessment and plan: Suggests a myocardial infarction. Patient did have a cardiac arrest with CPR. 09/15/2016 apparent myocardial infarction. 09/16/2016 acute myocardial infarction. 09/19/2016 had an acute myocardial infarction earlier. This was likely because of his cardiac arrest 09/20/2016 had acute myocardial infarction that led to his arrest. Current Visit: Yes
[2016-09-21] MEDS: MULTIVITAMIN LIQUID (CENTRUM) 60 ML BOTTLE PER TUBE SCH (09:22)
[2016-09-21] MEDS: ALLOPURINOL 100 MG TABLET PO SCH (09:24)
[2016-09-21] MEDS: ASPIRIN EC 81 MG TABLET PO SCH (09:24)
[2016-09-21] MEDS: PIPERACILLIN/TAZOBACTAM 3,375 MG in SODIUM CHLORIDE 0.9% 100 ML IV SCH ×2 (09:30→20:04)
--- NOTE | 2016-09-21 14:22 | Hospitalist Progress Note ---
Assessment and Plan (1) Cardiopulmonary arrest Status: Acute Assessment and plan: 1)anoxic brain injury after arrest- very poor prognosis. neurology has signed off 2)cardiomyopathy- cardiology with nothing more to add, they have signed off. Echo with EF 15-20%. no coreg because of bradycardia, no ramos because of renal failure 3)JACK- UOP ok, creatinine beginning to recover. renal US showed chronic disease , and of course his acutely worsened creatinine is due to ATN from arrest. 4)acute [place] 5)respiratory failure with aspiration pneumonia following arrest- on vent, on IV antibiotics. cultures negative except for yeast contaminant in sputum. 6)bradycardia- holding coreg. 7)anemia- holding lovenox 8)I had planned to speak to all of his daughters today re: terminal wean as I had arranged yesterday. However, [place] If they come, I will talk to them. I think from my conversation with his daughter yesterday that that is what they feel he would want. Current Visit: Yes (2) Pneumonia Status: Acute Current Visit: Yes (3) Respiratory failure Status: Acute Current Visit: Yes (4) Hypoxic encephalopathy Status: Acute Current Visit: Yes (5) Cardiomyopathy Status: Acute Current Visit: Yes (6) Hypokalemia Status: Acute Current Visit: Yes Hospitalist: Subjective Interval history: Mr Gale is the same except he is not as frequently breathing over the vent. Exam - Constitutional Vitals: Period Temp Pulse Resp BP Sys/Call Pulse Ox Last 24 Hr 96.9 F-97.6 F 57-90 12-184 102-166/55-102 98-100 General appearance: normal weight, no acute distress (sedated) - Head Head exam: Present: normocephalic, atraumatic - Respiratory Respiratory exam: Present: clear to auscultation bilaterally - Cardiovascular Cardiovascular exam: Present: regular rate and rhythm - GI/Abdominal GI/Abdominal exam: Present: normal bowel sounds, soft - Extremities Exam Extremities exam: Present: edema Results - Labs CBC & BMP: 09/21/16 04:05 09/21/16 04:05 Lab Results: I have reviewed the past 24 hour labs
[2016-09-21] MEDS: ATORVASTATIN 20 MG TABLET PO SCH (20:05)
[2016-09-21] MEDS: PROPOFOL 1,000 MG/100 ML BOTTLE IV SCH (21:59)
[2016-09-21] MEDS: PANTOPRAZOLE 40 MG VIAL IV SCH (21:59)
[2016-09-22] MEDS: INSULIN REGULAR 100 UNIT/ML SUBCUT SCH ×4 (00:18→11:14)
[2016-09-22] MEDS: PHENYLEPHRINE DRIP 40 MG/250 ML PREMIX IV SCH (00:18)
--- NOTE | 2016-09-22 00:54 | Nephrology Progress Note ---
Nephrology - PN: Subj Interval history: This is a late entry note for 09/21/2016 He remains on the ventilator. No change in neurologic status. Exam (PN)-Nephrology - Vital Signs Vital signs: Period Temp Pulse Resp BP Sys/Call Pulse Ox Last 24 Hr 96.9 F-97.6 F 57-90 12-24 102-161/55-89 96-100 Exam: Gen.: Not responsive, on ventilator ENT: Pupils equal round reactive to light. Neck: Supple. No JVD or bruit. Cardiovascular: Regular rate and rhythm. No murmur rub or gallop Lungs: Bilateral rhonchi Abdomen: Soft. Nontender. Positive bowel sounds. No organomegaly Extremities: No edema - Lab 09/21/16 04:05 09/21/16 04:05 Most recent lab results ABG pH 7.570 (7.35-7.45) H 09/20/16 02:25 ABG pCO2 38.1 MM HG (35-48) 09/20/16 02:25 ABG pO2 96.3 MM HG (80-95) H 09/20/16 02:25 ABG HCO3 34.1 MMOL/L (20-26) H 09/20/16 02:25 ABG O2 Saturation 96.8 % (95-100) 09/20/16 02:25 Calcium 6.7 MG/DL (8.5-10.1) L 09/21/16 04:05 Phosphorus 5.3 MG/DL (2.5-4.9) H 09/20/16 06:30 Magnesium 3.2 MG/DL (1.8-2.4) H 09/21/16 04:05 Assessment and Plan (1) ARF (acute renal failure) Status: Acute Assessment and plan: 81-year-old man with: * Pneumonia * Cardiopulmonary arrest. Continue ventilatory support * acute NH. * Cardiomyopathy. EF 15-20% * Anoxic encephalopathy * ARF. Renal function is improving Current Visit: Yes (2) Cardiopulmonary arrest Status: Acute Current Visit: Yes (3) History of cardiomyopathy Status: Acute Current Visit: Yes (4) Hypoxic encephalopathy Status: Acute Current Visit: Yes (5) Increase in troponins Status: Acute Current Visit: Yes (6) Pneumonia Status: Acute Current Visit: Yes (7) Respiratory failure Status: Acute Current Visit: Yes
[2016-09-22 04:10] LABS: Basophils % 0.1 % (0.0-0.8); Hematocrit 28.1 VOL% (42.0-52.0); Hemoglobin 9.1 GM/DL (14.0-18.0); Immature Granulocytes % 1.5 %; Immature Granulocytes Absolute 0.26 #; Lymphocytes # 0.1 10*3/uL (1.4-4.0); Lymphocytes % 0.8 % (21.2-54.2); Mean Corpuscular HGB Conc 32.4 GM/DL (32-36); Mean Corpuscular Hemoglobin 29 PG (27-34); Mean Corpuscular Volume 90.4 FL (87-102); Monocytes # 0.4 10*3/uL (0.11-0.8); Monocytes % 2.1 % (1.7-12.7); Neutrophils # 16.2 10*3/uL (1.4-7.4); Neutrophils % 95.5 % (38.7-73.9); Platelet Count 145 T/CUMM (130-400); Red Blood Count 3.11 MC/CUMM (3.8-5.5); Red Cell Distribution Width 16.1 % (9.3-17.3)
[2016-09-22 04:35] LABS: Calcium 6.6 MG/DL (8.5-10.1); Osmolality,Calculated 316.1 MOS/KG (273-304); Potassium 2.9 MMOL/L (3.5-5.1)
[2016-09-22 04:45] LABS: Band Neutrophils 1 % (0-10); Hypochromasia 1+; Microcytosis Slight; Ovalocytes Slight; Platelet Estimate Normal; Segmented Neutrophils 96 % (50-85); Total Cells Counted 100
[2016-09-22] MEDS: methylPREDNISolone SOD SUC 125 MG/2 ML VIAL IV SCH ×2 (04:48→11:14)
[2016-09-22] MEDS: ACETYLCYSTEINE 20% 800 MG/4 ML VIAL RESP TX SCH (07:33)
--- NOTE | 2016-09-22 08:34 | Pulmonology Progress Note ---
Pulmonary - PN: Subj Interval history: 81-year-old [place] male with cardiopulmonary arrest. As apparent hypoxic brain injury. Neurology following. He is on the ventilator. ABGs acceptable. Cannot wean until mental status changes. 09/16/2016 patient remains unresponsive. Does have pupillary reflexes. Severe hypoxic brain injury apparently. Continuing mechanical ventilatory support for now. 09/17/2016 patient unresponsive except to painful stimulation. Still has pupillary reflexes. Starting to do CPAP trials. Family needs information on neurologic prognosis. From pulmonary standpoint we will continue with mechanical ventilation and weaning trials for now. 09/18/16 patient remains unresponsive. He does have some spontaneous respirations and moves about a little. He has had some episodes of bradycardia. Coreg has been stopped. 09/19/2016 again patient unresponsive. He has some spontaneous movement of his eyes and chin. Does not respond to anything did not do CPAP yesterday as his blood pressures were unstable. Will try to resume them again today. 09/20/2016 patient turns his head to the side a little with painful stimulus. Does not follow with eyes. Does not follow instructions. He is in deep coma, not quite persistent vegetative state. Need follow-up from neurology. Prognosis appears to be grave. Will need a decision as to whether to proceed with mechanical ventilatory support long-term in which case he would need a tracheostomy, or comfort measures in which case a terminal wean would be indicated. 09/21/2016 little change from yesterday. Continuing mechanical ventilation. Tolerating CPAP. Cannot extubate as yet. Patient is now a DO NOT RESUSCITATE. I would recommend terminal wean. He may breathe for some time following that as he does appear to have respiratory drive persisting. Defer to primary physicians and family. 09/22/2016 patient has not changed mental status gomez. Oxygen saturation 98%. Continuing mechanical ventilatory support. He has severe hypoxic brain injury. Family is to decide today whether they desire a terminal wean, or continued support in which case she would need a tracheostomy. Prognosis remains poor either way. Exam (Progress Note) - Constitutional Vitals: Period Temp Pulse Resp BP Sys/Call Pulse Ox Last 24 Hr 96.9 F-97.6 F 62-90 14-22 120-166/57-104 95-99 Exam: Unresponsive, except he does flinch slightly with painful stimulus. Pupils small but reactive. Apparently has cataracts. Orotracheal tube in place. Neck is supple. Chest reveals some bibasilar rales otherwise clear. Heart normal rate rhythm no murmurs. Abdomen soft no masses. Extremities no clubbing cyanosis or edema. Results - Labs CBC & BMP: 09/22/16 03:39 09/22/16 03:39 Lab Results: I have reviewed the past 24 hour labs Assessment and Plan (1) Respiratory failure Status: Acute Assessment and plan: ABGs look good. Will reduce FiO2 and assist control rate a little. 09/15/2016 ABGs acceptable on current settings. Mental status will tell us what to do weaning device. At present not ready for any weaning trials. ABGs look good with a PO2 111, PCO2 30, pH 7.41. We will keep at present settings. 09/16/2016 ABGs acceptable. Mental status does not allow weaning as yet. 09/17/2016 respiratory failure secondary to cardiac arrest with hypoxic brain injury. ABGs acceptable. Pending today. Tolerating weaning trials. Will be able to extubate until decision made about mental status. May require tracheostomy if long-term support is planned. 09/18/16 patient is making progress with CPAP. Would not be able to defend his airway if extubated at present. Await further neurologic evaluation. If long- term support is required, tracheostomy would be indicated next week. 09/19/2016 unable to do CPAP yesterday. Will resume them today. 09/20/2016 did tolerate CPAP yesterday. At this point will need a decision from his family as to whether they want to continue with longer term mechanical ventilatory support, or comfort measures. It appears that his neurologic status is not improving. I do not think he can defend his airway if he were extubated now. 09/21/2016 continuing with mechanical ventilation. Again sources as outlined in yesterday's note 09/22/2016 continuing mechanical ventilation. Await family's decision. If they want to continue with support, then we will need to get tracheostomy. Current Visit: Yes (2) Cardiopulmonary arrest Status: Acute Assessment and plan: Remains to be seen what his mental status will be like. Continuing support. History of cardiomyopathy and cardiac enzymes apparently myocardial infarction. 09/15/2016 apparent myocardial infarction with cardiac arrest and hypoxic brain injury. 09/16/2016 status post myocardial infarction with cardiac arrest. Has severe hypoxic brain injury. 09/17/2016 status post myocardial infarction with cardiac arrest and hypoxic brain injury. Defer to cardiology and neurology. 09/18/2016 hypoxic brain injury. No change in neurologic status. 09/19/2016 patient is not waking up. 09/20/2016 patient is in deep coma. 09/21/2016 has severe hypoxic brain injury with deep coma. Still has respiratory drive. 09/22/2016 severe hypoxic brain injury. Patient is in deep coma. Current Visit: Yes (3) Pneumonia Status: Acute Assessment and plan: Agree with broad-spectrum antibiotics. 09/15/2016 continuing broad-spectrum antibiotics. 09/16/2016 empiric antibiotics. Has gram-negative rods in sputum. Should be covered with Zosyn. 09/17/2016 on empiric antibiotics for gram-negative pneumonia. Does have patchy infiltrates on his lungs. May well have aspirated associated with his arrest. 09/18/2016 empiric antibiotics. Cultures have been negative. Does have pulmonary infiltrate. Likely had aspiration associated with his cardiac arrest and resuscitation. 09/19/2016 right basilar infiltrate. Suspect aspiration pneumonia. Cultures negative only grew Denise and this was likely upper airway contaminant 09/20/2016 continuing empiric antibiotics. 09/21/2016 on empiric antibiotics. No bacteria growing on cultures 09/22/2016 continuing empiric antibiotics. Current Visit: Yes (4) History of cardiomyopathy Status: Acute Assessment and plan: Need an echo to see current LV function. 09/15/2016 cardiology following. Has ejection fraction 15-20%. Moderate AR. LVH with diastolic dysfunction as well. 09/16/2016 severe cardiomyopathy which appears to be ischemic. 09/17/2016 again has severe cardiomyopathy. Prognosis poor from that alone. 09/18/2016 underlying severe cardiomyopathy post myocardial infarction. Poor prognosis. 09/19/2016 severe cardiomyopathy. 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 Current Visit: Yes (5) Increase in troponins Status: Acute Assessment and plan: Suggests a myocardial infarction. Patient did have a cardiac arrest with CPR. 09/15/2016 apparent myocardial infarction. 09/16/2016 acute myocardial infarction. 09/19/2016 had an acute myocardial infarction earlier. This was likely because of his cardiac arrest 09/20/2016 had acute myocardial infarction that led to his arrest. 09/22/2016 status post myocardial infarction with cardiac arrest Current Visit: Yes
[2016-09-22] MEDS: DEXTROSE 5% 1,000 ML IV SCH (08:56)
[2016-09-22] MEDS ORDERED: MORPHINE 2 MG/1 ML SYRINGE IV PRN ×2 (09:20→13:27)
[2016-09-22] MEDS ORDERED: POTASSIUM CHLORIDE 20 MEQ/15 ML UDCUP PER TUBE PRN (10:42)
[2016-09-22] MEDS: PIPERACILLIN/TAZOBACTAM 3,375 MG in SODIUM CHLORIDE 0.9% 100 ML IV SCH (11:13)
[2016-09-22] MEDS: ASPIRIN EC 81 MG TABLET PO SCH (11:13)
[2016-09-22] MEDS: MULTIVITAMIN LIQUID (CENTRUM) 60 ML BOTTLE PER TUBE SCH (11:13)
[2016-09-22] MEDS: ALLOPURINOL 100 MG TABLET PO SCH (11:14)
[2016-09-22] MEDS: LORazepam 2 MG/1 ML VIAL IV PRN ×2 (12:00→14:15)
[2016-09-22 14:26] VITALS: BP 164/97
--- NOTE | 2016-09-22 14:37 | Nephrology Progress Note ---
Nephrology - PN: Subj Interval history: Patient has been extubated, he continues to breathe he does have some upper airway noises heard without the stethoscope he is nonresponsive, family is gathered around in the room. He does not appear to be in any distress. Assessment/plan 1. Acute renal failure-this patient's creatinine was improved from yesterday around 2.5 mg/dL today 2. Cardiac arrest-patient has been extubated, it would appear that the family has decided to decrease the level of support here. 3. Anemia 4. Respiratory failure-patient has been extubated Exam (PN)-Nephrology - Vital Signs Vital signs: Period Temp Pulse Resp BP Sys/Call Pulse Ox Last 24 Hr 96.9 F-97.8 F 60-87 14-23 109-167/45-104 95-100 - Lab 09/22/16 03:39 09/22/16 03:39 Most recent lab results ABG pH 7.570 (7.35-7.45) H 09/20/16 02:25 ABG pCO2 38.1 MM HG (35-48) 09/20/16 02:25 ABG pO2 96.3 MM HG (80-95) H 09/20/16 02:25 ABG HCO3 34.1 MMOL/L (20-26) H 09/20/16 02:25 ABG O2 Saturation 96.8 % (95-100) 09/20/16 02:25 Calcium 6.6 MG/DL (8.5-10.1) L 09/22/16 03:39 Phosphorus 5.3 MG/DL (2.5-4.9) H 09/20/16 06:30 Magnesium 3.0 MG/DL (1.8-2.4) H 09/22/16 03:39
--- NOTE | 2016-09-22 15:20 | Discharge Summary ---
Hospital Course - Hospital Course Hospital Course: Mr Gale presented after a collapse at work at the [facility] [employer]. He had cardiac arrest and subsequent anoxic brain injury. He was supported in the CCU on the but remained in deep coma. The primary service and the consultants agreed that he had a very poor prognosis. His daughters told us he would not want to be kept alive on life support, and Dr Vazquez did not feel he would have meaningful recovery to extubation and recommended terminal wean. He was extubated today and with his family at his bedside. He was pronounced at 14:47. - Cause of Cause of : cardiopulmonary arrest with anoxic brain injury. Diagnosis - Discharge Diagnosis (1) Cardiopulmonary arrest Status: Acute (2) Pneumonia Status: Acute (3) Respiratory failure Status: Acute (4) Hypoxic encephalopathy Status: Acute (5) Cardiomyopathy Status: Acute (6) Hypokalemia Status: Acute Discharge Plan - Discharge Data Disposition: - Discharge Medications No Action Simvastatin 40 mg PO BEDTIME Omeprazole 20 mg PO DAILY levoFLOXacin [Levofloxacin Tab] 750 mg PO DAILY Potassium Chloride 10 meq PO DAILY Colchicine 0.6 mg PO DAILY Acetaminophen Tab [Tylenol Tab] 500 mg PO Q6HR PRN PRN Reason: Pain Furosemide Tab [Lasix Tab] 40 mg PO QAM Tamsulosin [Flomax] 0.4 mg PO DAILY Allopurinol 200 mg PO DAILY predniSONE TAB [PredniSONE] 10 mg PO DAILY Guaifenesin/Dextromethorphan [Guaifenesin Dm Syrup] 5 ml PO Q4H PRN PRN Reason: Cough - Follow Up or Referral - Forms/Instructions Exam - Constitutional Vitals: Period Temp Pulse Resp BP Sys/Call Pulse Ox Last 24 Hr 96.9 F-97.8 F 60-121 14-23 109-167/45-104 47-100 Discharge Results Labs on day of discharge: Labs from last 24 hours 09/22/16 09/22/16 09/22/16 11:31 09:09 04:15 WBC RBC Hgb Hct MCV MCH MCHC RDW Plt Count MPV Neut % (Auto) Lymph % (Auto) [place] % (Auto) Eos % (Auto) Baso % (Auto) Neut # (Auto) Lymph # (Auto) [place] # (Auto) Eos # (Auto) Baso # (Auto) Total Counted Immature Gran % Nucleated RBC % Immature Gran # Segmented Neutrophils Band Neutrophils Monocytes Nucleated RBCs # Platelet Estimate Hypochromasia Microcytosis Ovalocytes Morphology Comment Sodium Potassium Chloride Carbon Dioxide Anion Gap BUN Creatinine GFR Calculation BUN/Creatinine Ratio Glucose POC Glucose 202 H 221 H 202 H Calculated Osmolality Calcium Magnesium 09/22/16 09/22/16 09/22/16 03:39 03:39 00:00 WBC 17.0 H D RBC 3.11 L Hgb 9.1 L Hct 28.1 L MCV 90.4 MCH 29 MCHC 32.4 RDW 16.1 Plt Count 145 D MPV 13.0 H Neut % (Auto) 95.5 H Lymph % (Auto) 0.8 L [place] % (Auto) 2.1 Eos % (Auto) 0.0 Baso % (Auto) 0.1 Neut # (Auto) 16.2 H Lymph # (Auto) 0.1 L [place] # (Auto) 0.4 Eos # (Auto) 0.0 Baso # (Auto) 0.0 Total Counted 100 Immature Gran % 1.5 Nucleated RBC % 0.0 Immature Gran # 0.26 Segmented Neutrophils 96 H Band Neutrophils 1 Monocytes 3 Nucleated RBCs # 0.00 Platelet Estimate Normal Hypochromasia 1+ Microcytosis Slight Ovalocytes Slight Morphology Comment Sodium 142 Potassium 2.9 L Chloride 99 Carbon Dioxide 31 Anion Gap 14.9 BUN 88 H Creatinine 2.30 H GFR Calculation 23 BUN/Creatinine Ratio 38.00 H Glucose 222 H POC Glucose 200 H Calculated Osmolality 316.1 H Calcium 6.6 L Magnesium 3.0 H 09/21/16 09/21/16 09/21/16 19:45 17:01 11:06 WBC RBC Hgb Hct MCV MCH MCHC RDW Plt Count MPV Neut % (Auto) Lymph % (Auto) [place] % (Auto) Eos % (Auto) Baso % (Auto) Neut # (Auto) Lymph # (Auto) [place] # (Auto) Eos # (Auto) Baso # (Auto) Total Counted Immature Gran % Nucleated RBC % Immature Gran # Segmented Neutrophils Band Neutrophils Monocytes Nucleated RBCs # Platelet Estimate Hypochromasia Microcytosis Ovalocytes Morphology Comment Sodium Potassium Chloride Carbon Dioxide Anion Gap BUN Creatinine GFR Calculation BUN/Creatinine Ratio Glucose POC Glucose 188 H 205 H 228 H Calculated Osmolality Calcium Magnesium 09/21/16 07:25 WBC RBC Hgb Hct MCV MCH MCHC RDW Plt Count MPV Neut % (Auto) Lymph % (Auto) [place] % (Auto) Eos % (Auto) Baso % (Auto) Neut # (Auto) Lymph # (Auto) [place] # (Auto) Eos # (Auto) Baso # (Auto) Total Counted Immature Gran % Nucleated RBC % Immature Gran # Segmented Neutrophils Band Neutrophils Monocytes Nucleated RBCs # Platelet Estimate Hypochromasia Microcytosis Ovalocytes Morphology Comment Sodium Potassium Chloride Carbon Dioxide Anion Gap BUN Creatinine GFR Calculation BUN/Creatinine Ratio Glucose POC Glucose 254 H Calculated Osmolality Calcium Magnesium DS: Provider Date of admission: 09/13/16 20:04 Primary care physician: Arvin Don MD Attending physician on admission: Eusebio Telles MD Consults: 09/13/16 20:04 Consult to Physician [CONS] Routine Comment: bump in troponins Consulting Provider: Cardiology - [facility] Person Notified: SIDNEY with answering service Date Notified: 09/14/16 Time Notified: 07:25 Consult to Physician [CONS] Routine Comment: pneumonia and possible lung mass Consulting Provider: Consult to Specialist Group: Pulmonology When should Consulting Provider be notified: In am Person Notified: Dr Vazquez Date Notified: 09/14/16 Time Notified: 07:23 Consult Notification Comment: Notified Dr Vazquez during morning rounds in unit. 09/14/16 13:58 Consult to Physician [CONS] Routine Comment: acute renal failure Consulting Provider: Consulting Provider Notified: No When should Consulting Provider be notified: Now Consult to Specialist Group: Nephrology Person Notified: [email or web address] Date Notified: 09/14/16 Time Notified: 14:33 09/14/16 14:03 Consult to Physician [CONS] Routine Comment: AMS s/p cardiopulm arrest Consulting Provider: Consulting Provider Notified: No When should Consulting Provider be notified: Now Consult to Specialist Group: Neurology Person Notified: ambrocio voicemail @ dr guzmán office Date Notified: 09/14/16 Time Notified: 14:30 09/15/16 08:03 Consult to Dietitian [CONS] Routine Reason for Dietitian: TF-Initiate/Manage Discharging clinician: Nancy Lira MD
== END 2016-09-22 14:47 | disposition expired | DRG 870 ==
LOC: EDUNIT# → EDBD → N.ED 18:25 → SUATTDRO 20:04 → N.EDINP 20:04 → N.CC 22:30
PROVIDERS: ADMIT Internal Medicine; ATTEND Internal Medicine